=== PATIENT | male | born 1940 | race Caucasian/White ===

== ENCOUNTER 2017-01-02 22:45 | Emergency (ER) | payer OTHER ==
[~2017-01-02] VITALS: Ht 175.3 cm; Wt 84.0 kg
[2017-01-02 22:47] VITALS: BP 197/76; PULSE 95; RESP 18; TEMP 97.9; O2SAT 96
[2017-01-02] MEDS ORDERED: SODIUM CHLORIDE 0.9% FLUSH 10 ML FLUSH IVF PRN (23:30)
--- NOTE | 2017-01-02 23:46 | PD ---
HPI Chief Complaint: Anxiety Time Seen by Provider: 23:01 Travel History International Travel<30 days: No Contact w/Intl Traveler<30days: No Traveled to known affect area: No History of Present Illness HPI This is a 76-year-old male with very vague complaints of feeling anxious. He clarifies this state that she feels very nervous. Patient relates a history of not being able to sleep tonight. He states he took an [id number] sleeping pill as well as had 2 beers earlier today. He drove himself here sometime after that. Patient then relates a history of feeling anxious about taking care of his neighbor's dog. Apparently the dog needed shots and he was unsure if he was given a be able to do that. He states he been feeling anxious on and off for the past 2 weeks and before that has not had any history of anxiety. His friend gave him an Abilify tablet to take which she took tonight. This did not help. He denies any chest pain shortness of breath. Patient also has a very vague complaint of having blood in his belly in the past secondary to alcohol consumption. He states he thinks he felt like this was coming on again. He denies having any blood in his stool or emesis. Denies any fever denies any abdominal pain. PFSH Past Medical History Hx Anticoagulant Therapy: Yes (ASA) Cardiovascular Problems: Yes (HTN) COPD: Yes Diminished Hearing: No Hypertension: Yes Tetanus Vaccination: Unknown Influenza Vaccination: Yes Past Surgical History Surgical History: No Previous Surgery Social History Alcohol Use: Yes (beer/vodka daily) Tobacco Use: Yes Substance Use: No Allergies-Medications (Allergen,Severity, Reaction): Coded Allergies: No Known Allergies (Unverified , 01/02/17) Reported Meds & Prescriptions Reported Meds & Active Scripts Active Reported Duoneb (Ipratropium-Albuterol Neb) 0.5-2.5 Mg/3 Ml Neb 1 Nebule INH Q8HR NEB Verapamil (Verapamil HCl) 120 Mg Tab 120 Mg PO DAILY Pravastatin 20 Mg Tab 20 Mg PO DAILY Niacin 500 Mg Tab 500 Mg PO DAILY Loratadine 10 Mg Tab 10 Mg PO DAILY Lisinopril 5 Mg Tab 5 Mg PO DAILY Potassium Chloride ER (Potassium Chloride) 10 Meq Tab 10 Meq PO DAILY Calcium Ascorbate 500 Mg Tab 500 Mg PO DAILY Aspirin Low Dose (Aspirin) 81 Mg Chew 81 Mg CHEW DAILY Review of Systems Except as stated in HPI: all other systems reviewed are Neg Physical Exam Narrative GENERAL: Well-developed well-nourished no apparent distress. SKIN: Focused skin assessment warm/dry. HEAD: Atraumatic. Normocephalic. EYES: Pupils equal and round. No scleral icterus. No injection or drainage. ENT: No nasal bleeding or discharge. Mucous membranes pink and moist. NECK: Trachea midline. No JVD. CARDIOVASCULAR: Regular rate and rhythm. No murmur appreciated. RESPIRATORY: No accessory muscle use. Clear to auscultation. Breath sounds equal bilaterally. GASTROINTESTINAL: Abdomen soft, non-tender, nondistended. Hepatic and splenic margins not palpable. MUSCULOSKELETAL: No obvious deformities. No clubbing. No cyanosis. No edema. NEUROLOGICAL: Awake and alert. No obvious cranial nerve deficits. Motor grossly within normal limits. Normal speech. PSYCHIATRIC: Reluctant to make eye contact, alert and awake and oriented. Denies any suicidal or homicidal ideation. Data Data Last Documented VS Vital Signs Date Time Temp Pulse Resp B/P Pulse Ox O2 Delivery O2 Flow Rate FiO2 01/02/17 22:47 97.9 95 18 197/76 96 Room Air Orders Electrocardiogram (01/02/17 23:17) Ckmb (Isoenzyme) Profile (01/02/17 23:17) Complete Blood Count With Diff (01/02/17 23:17) Comprehensive Metabolic Panel (01/02/17 23:17) Magnesium (Mg) (01/02/17 23:17) Prothrombin Time / Inr (Pt) (01/02/17 23:17) Act Partial Throm Time (Ptt) (01/02/17 23:17) Troponin I (01/02/17 23:17) Chest, Single Ap (01/02/17 23:17) Ecg Monitoring (01/02/17 23:17) Bilateral Bp Monitoring (01/02/17 23:17) Iv Access Insert/Monitor (01/02/17 23:17) Oximetry (01/02/17 23:17) Oxygen Administration (01/02/17 23:17) Sodium Chloride 0.9% Flush (Ns Flush) (01/02/17 23:30) Labs Laboratory Tests Test 01/02/17 23:50 White Blood Count 8.7 TH/MM3 Red Blood Count 3.99 MIL/MM3 Hemoglobin 12.4 GM/DL Hematocrit 36.2 % Mean Corpuscular Volume 90.7 FL Mean Corpuscular Hemoglobin 31.1 PG Mean Corpuscular Hemoglobin 34.3 % Concent Red Cell Distribution Width 13.3 % Platelet Count 252 TH/MM3 Mean Platelet Volume 9.3 FL Neutrophils (%) (Auto) 77.3 % Lymphocytes (%) (Auto) 14.3 % Monocytes (%) (Auto) 7.4 % Eosinophils (%) (Auto) 0.7 % Basophils (%) (Auto) 0.3 % Neutrophils # (Auto) 6.7 TH/MM3 Lymphocytes # (Auto) 1.2 TH/MM3 Monocytes # (Auto) 0.6 TH/MM3 Eosinophils # (Auto) 0.1 TH/MM3 Basophils # (Auto) 0.0 TH/MM3 CBC Comment DIFF FINAL Differential Comment MDM Medical Decision Making Medical Screen Exam Complete: Yes Emergency Medical Condition: Yes Interpretation(s) EKG shows normal sinus rhythm with a rate of 62. LA interval is at upper limits of normal at 200. There is right bundle torsten block. No concerning ST T changes. This an abnormal EKG. Nonischemic. No previous for comparison. Differential Diagnosis Anemia, anxiety, alcohol abuse, fatigue, ACS unlikely, MA likely. Narrative Course Patient was roomed in the emergency department, only notable physical exam findings at the patient is reluctant to make eye contact with me. Shortly after arrival into the emergency department his nervousness and has been resolved without intervention by me. Given his age and think a medical workup for no history of anxiety symptoms should be initiated. CBC is within normal limits. Patient will be discussed with Dr. Burger to follow-up chemistry and disposition properly. Mark Adkins MD Jan 02, 2017 23:46
--- NOTE | 2017-01-02 23:54 | RADRPT ---
EXAM DATE/TIME: 01/02/2017 23:17 [facility] COMPARISON: No previous studies available for comparison. INDICATIONS : Shortness of breath. MEDICAL HISTORY : None. SURGICAL HISTORY : None. ENCOUNTER: Initial ACUITY: 1 day PAIN SCORE: 0/10 LOCATION: Bilateral chest FINDINGS: The cardiac silhouette is enlarged in transverse diameter. The lungs are free of acute parenchymal op acity. No effusions are identified. There is prominence of the aortic knob is with calcification ralph acteristic of atherosclerotic vascular disease. CONCLUSION: 1. Cardiomegaly. No acute pulmonary disease. Dom Soriano MD on January 02, 2017 at 23:53 Board Certified Radiologist. This report was verified electronically.
[2017-01-02] MEDS ORDERED: IPRASOL INH (23:55)
[2017-01-02] MEDS ORDERED: LISI-519 PO (23:55)
[2017-01-02] MEDS ORDERED: CALC500T37 PO (23:55)
[2017-01-02] MEDS ORDERED: ASPI81CH37 CHEW (23:55)
[2017-01-02] MEDS ORDERED: POTA10TA2 PO (23:55)
[2017-01-02] MEDS ORDERED: NIAC500T5 PO (23:55)
[2017-01-02] MEDS ORDERED: PRAV20TA2 PO (23:55)
[2017-01-02] MEDS ORDERED: VERA120T3 PO (23:55)
[2017-01-02] MEDS ORDERED: LORA10TA PO (23:55)
[2017-01-03 00:17] LABS: AUTOMATED NEUTROPHIL # 6.7 TH/MM3 (1.8-7.7); BASOPHIL % 0.3 % (0.0-2.0); EOSINOPHIL # 0.1 TH/MM3 (0-0.4); EOSINOPHIL % 0.7 % (0.0-4.0); HEMATOCRIT 36.2 % (39.0-51.0); HEMO FLAGS DIFF FINAL; LYMPH % 14.3 % (9.0-44.0); LYMPHOCYTE # 1.2 TH/MM3 (1.0-4.8); MEAN CELL VOLUME 90.7 FL (80.0-100.0); MEAN CORPUSCULAR HEMOGLOBIN 31.1 PG (27.0-34.0); MEAN CORPUSCULAR HGB CONC 34.3 % (32.0-36.0); MONO % 7.4 % (0.0-8.0); NEUT % 77.3 % (16.0-70.0); PLATELET COUNT 252 TH/MM3 (150-450); RED BLOOD COUNT 3.99 MIL/MM3 (4.50-5.90); RED CELL DISTRIBUTION WIDTH 13.3 % (11.6-17.2); WHITE BLOOD COUNT 8.7 TH/MM3 (4.0-11.0)
[2017-01-03 00:43] LABS: ALT (GPT) 25 U/L (12-78); ANION GAP 8 MEQ/L (5-15); AST (GOT) 30 U/L (15-37); BICARBONATE 26.2 MEQ/L (21.0-32.0); BLOOD UREA NITROGEN 5 MG/DL (7-18); CHLORIDE 92 MEQ/L (98-107); GLOMERULAR FILTRATION RATE 92 ML/MIN (>89); MAGNESIUM 1.7 MG/DL (1.5-2.5); SODIUM (NA) 126 MEQ/L (136-145)
[2017-01-03 00:50] LABS: ALKALINE PHOSPHATASE 70 U/L (45-117); APTT (PATIENT) 22.3 SEC (24.3-30.1); PROTHROMBIN TIME - PATIENT 10.6 SEC (9.8-11.6); TOTAL BILIRUBIN ADULT 0.8 MG/DL (0.2-1.0)
[2017-01-03 00:51] LABS: CREATINE KINASE 97 U/L (39-308)
--- NOTE | 2017-01-03 01:32 | PD ---
Physical Exam Date Seen by Provider: Jan 03, 2017 Narrative Patient was signed out to me at [address] Adkins pending lab evaluation. The patient presented complaining with nervousness. Data Data Last Documented VS Vital Signs Date Time Temp Pulse Resp B/P Pulse Ox O2 Delivery O2 Flow Rate FiO2 01/02/17 23:30 96 Room Air 01/02/17 22:47 97.9 95 18 197/76 Orders Electrocardiogram (01/02/17 23:17) Ckmb (Isoenzyme) Profile (01/02/17 23:17) Complete Blood Count With Diff (01/02/17 23:17) Comprehensive Metabolic Panel (01/02/17 23:17) Magnesium (Mg) (01/02/17 23:17) Prothrombin Time / Inr (Pt) (01/02/17:17) Act Partial Throm Time (Ptt) (01/02/17 23:17) Troponin I (01/02/17 23:17) Chest, Single Ap (01/02/17 23:17) Ecg Monitoring (01/02/17 23:17) Bilateral Bp Monitoring (01/02/17 23:17) Iv Access Insert/Monitor (01/02/17 23:17) Oximetry (01/02/17 23:17) Oxygen Administration (01/02/17 23:17) Sodium Chloride 0.9% Flush (Ns Flush) (01/02/17 23:30) Psych Screen (01/03/17 01:28) Labs Laboratory Tests Test 01/02/17 23:50 White Blood Count 8.7 TH/MM3 Red Blood Count 3.99 MIL/MM3 Hemoglobin 12.4 GM/DL Hematocrit 36.2 % Mean Corpuscular Volume 90.7 FL Mean Corpuscular Hemoglobin 31.1 PG Mean Corpuscular Hemoglobin 34.3 % Concent Red Cell Distribution Width 13.3 % Platelet Count 252 TH/MM3 Mean Platelet Volume 9.3 FL Neutrophils (%) (Auto) 77.3 % Lymphocytes (%) (Auto) 14.3 % Monocytes (%) (Auto) 7.4 % Eosinophils (%) (Auto) 0.7 % Basophils (%) (Auto) 0.3 % Neutrophils # (Auto) 6.7 TH/MM3 Lymphocytes # (Auto) 1.2 TH/MM3 Monocytes # (Auto) 0.6 TH/MM3 Eosinophils # (Auto) 0.1 TH/MM3 Basophils # (Auto) 0.0 TH/MM3 CBC Comment DIFF FINAL Differential Comment Prothrombin Time 10.6 SEC Prothromb Time International 1.0 RATIO Ratio Activated Partial 22.3 SEC Thromboplast Time Sodium Level 126 MEQ/L Potassium Level 4.0 MEQ/L Chloride Level 92 MEQ/L Carbon Dioxide Level 26.2 MEQ/L Anion Gap 8 MEQ/L Blood Urea Nitrogen 5 MG/DL Creatinine 0.82 MG/DL Estimat Glomerular Filtration 92 ML/MIN Rate Random Glucose 115 MG/DL Calcium Level 8.5 MG/DL Magnesium Level 1.7 MG/DL Total Bilirubin 0.8 MG/DL Aspartate Amino Transf 30 U/L (AST/SGOT) Alanine Aminotransferase 25 U/L (ALT/SGPT) Alkaline Phosphatase 70 U/L Total Creatine Kinase 97 U/L Troponin I LESS THAN 0.02 NG/ML Total Protein 6.9 GM/DL Albumin 3.6 GM/DL MDM Supervised Visit with ADRIANA: No Narrative Course This patient is very despondent. He makes very poor eye contact. He became tearful during the interview. I offered psych evaluation which he accepted. The patient does admit to alcohol use. This probably explains his abnormal chemistries. CBC & BMP Diagram 01/02/17 23:50 Last Impressions Chest X-Ray 01/02/17 0487 Signed Impressions: Service Date/Time: Monday, January 02, 2017 23:17 - CONCLUSION: 1. Cardiomegaly. No acute pulmonary disease. Dom Soriano MD Cardiac enzymes negative. LFTs are normal. Diagnosis Primary Impression: Depression Qualified Code: F32.9 - Depression, unspecified depression type Condition: Zoë Barry MD Jan 03, 2017 01:32
[2017-01-03 02:12] VITALS: BP 139/77; PULSE 73; RESP 16; O2SAT 96
[2017-01-03] MEDS ORDERED: LORazepam 2 MG TAB PO ONE (02:45)
[2017-01-03 08:15] VITALS: BP_SYST 126; BP_SYST 128; BP_SYST 130; BP_DIAS 77; BP_DIAS 81; PULSE 78; RESP 17; TEMP 97.8; O2SAT 99
--- NOTE | 2017-01-03 14:06 | EKG ---
Date Performed: 01/02/2017 Time Performed: 23:39:49 PTAGE: 76 years EKG: First degree AV block with WA interval of 0.22 Right bundle branch block Left axis deviatio n ABNORMAL ECG NO PREVIOUS TRACING DOCTOR: Raza Metcalf Interpretating Date/Time 01/03/2017 14:04:48
== END 2017-01-03 08:15 | disposition home or self-care (01) ==
LOC: NEPD 22:45
DX: F32.9 Major depressive disorder, single episode, unspecified (principal); I10 Essential (primary) hypertension; R94.31 Abnormal electrocardiogram [ECG] [EKG]; Z72.0 Tobacco use; Z79.01 Long term (current) use of anticoagulants
CPT/HCPCS: 71010; 80053; 82550; 83735; 84484; 85025; 85610; 85730; 93005

== ENCOUNTER 2017-02-07 20:19 | Inpatient (IN) | payer OTHER, MEDICARE ==
[~2017-02-07] VITALS: Ht 177.8 cm; Wt 78.5 kg
[~2017-02-07 20:19] MED LIST: ASPI81CH37 CHEW; CALC500T37 PO; IPRASOL INH; LISI-519 PO; LORA10TA PO; NIAC500T5 PO; POTA10TA2 PO; PRAV20TA2 PO; VERA120T3 PO
[2017-02-07 20:21] VITALS: BP 225/107; PULSE 92; RESP 18; TEMP 97.7; O2SAT 98
[2017-02-07] MEDS ORDERED: SODIUM CHLORIDE 0.9% FLUSH 5 ML FLUSH IV FLUSH PRN (20:45)
[2017-02-07 21:02] VITALS: BP 177/100; PULSE 79; RESP 18; O2SAT 97; O2SAT 98
--- NOTE | 2017-02-07 21:02 | PD ---
HPI Chief Complaint: Altered Mental Status Time Seen by Provider: 20:40 Travel History International Travel<30 days: No Contact w/Intl Traveler<30days: No Traveled to known affect area: No History of Present Illness HPI 76-year-old male arrives complaining of feeling unsafe at home. He states he lives in a mobile home with for security. He believes people break in at night and drug him with sedatives. He continues to explain several months of hallucinations. He has no thoughts of harming himself or others. He reports that quitting drinking alcohol about one month prior. He reports taking Ex-Lax today for constipation, a chronic ailment for him, though no more acute than normal today. PFSH Past Medical History Hx Anticoagulant Therapy: Yes (ASA) Cardiovascular Problems: Yes (HTN) COPD: Yes Diminished Hearing: No Hypertension: Yes Social History Alcohol Use: Yes (beer/vodka daily) Tobacco Use: Yes Substance Use: Yes (CHRONIC ALCOHOL ABUSE) Allergies-Medications (Allergen,Severity, Reaction): Coded Allergies: No Known Allergies (Unverified , 02/07/17) Reported Meds & Prescriptions Reported Meds & Active Scripts Active Reported Omeprazole 20 Mg Tab 20 Mg PO DAILY Duoneb (Ipratropium-Albuterol Neb) 0.5-2.5 Mg/3 Ml Neb 1 Nebule INH Q8HR NEB PRN Verapamil (Verapamil HCl) 120 Mg Tab 120 Mg PO DAILY Pravastatin 20 Mg Tab 20 Mg PO HS Niacin 500 Mg Tab 500 Mg PO HS Loratadine 10 Mg Tab 10 Mg PO DAILY PRN Lisinopril 5 Mg Tab 5 Mg PO DAILY Potassium Chloride ER (Potassium Chloride) 10 Meq Tab 10 Meq PO DAILY Calcium Ascorbate 500 Mg Tab 500 Mg PO DAILY Aspirin Low Dose (Aspirin) 81 Mg Chew 81 Mg CHEW EVERY OTHER DAY Review of Systems Except as stated in HPI: all other systems reviewed are Neg Physical Exam Narrative GENERAL: 76 yo M, WNWD, cooperative. SKIN: Warm and dry. HEAD: Atraumatic. Normocephalic. EYES: Pupils equal and round. No scleral icterus. No injection or drainage. ENT: No nasal bleeding or discharge. Mucous membranes pink and moist. NECK: Trachea midline. No JVD. CARDIOVASCULAR: Regular rate and rhythm. RESPIRATORY: No accessory muscle use. Clear to auscultation. Breath sounds equal bilaterally. GASTROINTESTINAL: Abdomen soft, non-tender, nondistended. Hepatic and splenic margins not palpable. MUSCULOSKELETAL: Extremities without clubbing, cyanosis, or edema. No obvious deformities. NEUROLOGICAL: Awake and alert. No obvious cranial nerve deficits. Motor grossly within normal limits. Five out of 5 muscle strength in the arms and legs. Normal speech. PSYCHIATRIC: No apparent response to internal stimulus. Denies suicidal or homicidal ideation. Data Data Last Documented VS Vital Signs Date Time Temp Pulse Resp B/P Pulse Ox O2 Delivery O2 Flow Rate FiO2 02/07/17 21:02 79 18 177/100 97 Room Air 02/07/17 20:21 97.7 Vital signs reviewed Orders Ammonia (02/07/17 20:40) Complete Blood Count With Diff (02/07/17 20:40) Comprehensive Metabolic Panel (02/07/17 20:40) Thyroid Stimulating Hormone (02/07/17 20:40) Urinalysis - C+S If Indicated (02/07/17 20:40) Ct Brain W/O Iv Contrast(Rout) (02/07/17 20:40) Blood Glucose (02/07/17 20:40) Ecg Monitoring (02/07/17 20:40) Iv Access Insert/Monitor (02/07/17 20:40) Oximetry (02/07/17 20:40) Sodium Chloride 0.9% Flush (Ns Flush) (02/07/17 20:45) Psych Screen (02/07/17 20:40) Drug Screen, Random Urine (02/07/17 20:40) Alcohol (Ethanol) (02/07/17 20:40) Salicylates (Aspirin) (02/07/17 20:40) Tylenol (Acetaminophen) (02/07/17 20:40) Lorazepam Inj (Ativan Inj) (02/07/17 23:15) Lorazepam Inj (Ativan Inj) (02/07/17 23:06) Labs Laboratory Tests Test 02/07/17 02/07/17 20:48 21:48 White Blood Count 7.1 TH/MM3 Red Blood Count 4.25 MIL/MM3 Hemoglobin 12.9 GM/DL Hematocrit 38.0 % Mean Corpuscular Volume 89.3 FL Mean Corpuscular Hemoglobin 30.4 PG Mean Corpuscular Hemoglobin 34.0 % Concent Red Cell Distribution Width 13.7 % Platelet Count 258 TH/MM3 Mean Platelet Volume 9.3 FL Neutrophils (%) (Auto) 68.7 % Lymphocytes (%) (Auto) 17.6 % Monocytes (%) (Auto) 11.5 % Eosinophils (%) (Auto) 1.9 % Basophils (%) (Auto) 0.3 % Neutrophils # (Auto) 4.8 TH/MM3 Lymphocytes # (Auto) 1.2 TH/MM3 Monocytes # (Auto) 0.8 TH/MM3 Eosinophils # (Auto) 0.1 TH/MM3 Basophils # (Auto) 0.0 TH/MM3 CBC Comment DIFF FINAL Differential Comment Sodium Level 133 MEQ/L Potassium Level 3.4 MEQ/L Chloride Level 96 MEQ/L Carbon Dioxide Level 27.3 MEQ/L Anion Gap 10 MEQ/L Blood Urea Nitrogen 10 MG/DL Creatinine 0.76 MG/DL Estimat Glomerular Filtration 100 ML/MIN Rate Random Glucose 98 MG/DL Calcium Level 8.8 MG/DL Total Bilirubin 0.6 MG/DL Aspartate Amino Transf 25 U/L (AST/SGOT) Alanine Aminotransferase 24 U/L (ALT/SGPT) Alkaline Phosphatase 93 U/L Ammonia 16 MCMOL/L Total Protein 7.0 GM/DL Albumin 3.3 GM/DL Thyroid Stimulating Hormone 1.700 uIU/ML 3rd Gen Salicylates Level LESS THAN 1.7 MG/DL Acetaminophen Level LESS THAN 2.0 MCG/ML Ethyl Alcohol Level LESS THAN 3 MG/DL Urine Color YELLOW Urine Turbidity HAZY Urine pH 7.0 Urine Specific [place] 1.018 Urine Protein TRACE mg/dL Urine Glucose (UA) NEG mg/dL Urine Ketones TRACE mg/dL Urine Occult Blood TRACE Urine Nitrite NEG Urine Bilirubin NEG Urine Urobilinogen 2.0 MG/DL Urine Leukocyte Esterase NEG Urine RBC 8 /hpf Urine WBC 1 /hpf Urine Squamous Epithelial <1 /hpf Cells Urine Mucus FEW /lpf Microscopic Urinalysis Comment CATH-CULT NOT IND Urine Opiates Screen NEG Urine Barbiturates Screen NEG Urine Amphetamines Screen NEG Urine Benzodiazepines Screen NEG Urine Cocaine Screen NEG Urine Cannabinoids Screen NEG MDM Medical Decision Making Medical Screen Exam Complete: Yes Emergency Medical Condition: Yes Medical Record Reviewed: Yes Differential Diagnosis Altered mental status/psychosis due to infection/environmental exposure/ metabolic abnormality, polypharmacy, alcohol abuse/intoxication, illicit or prescribed drug abuse, malingering/secondary gain, non-organic psychiatric disease Narrative Course CBC & BMP Diagram 02/07/17 20:48 Ammonia 16 TSH 1.7 ETOH < 3 Urine Drug zhou-negative APAP < 2.0 Salicylates < 1.7 UA: No UTI, trace RBCs Last [address] 02/07/172039 Signed Impressions: Service Date/Time: Tuesday, February 07, 2017 22:10 - CONCLUSION: Normal examination. Javon Ch MD Pt became agitated. He said he was going to leave the ER. He began swearing. He stated that he needed a phone to call the [place]. He had no number to call specifically. [facility] 11 PM. Pt stated he knows people who could get him home from the ER and that his presence in the ER was a threat to national security. He also stated he could order a battalion to take him home from the ER. He was redirectable. Ultimately he received 1 mg IV Ativan. A [facility] Act was filled out 2/2 risk to self/psychosis. 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
[2017-02-07] MEDS ORDERED: OMEP20TA PO (21:06)
[2017-02-07 21:09] LABS: AUTOMATED NEUTROPHIL # 4.8 TH/MM3 (1.8-7.7); BASOPHIL % 0.3 % (0.0-2.0); EOSINOPHIL # 0.1 TH/MM3 (0-0.4); EOSINOPHIL % 1.9 % (0.0-4.0); HEMO FLAGS DIFF FINAL; LYMPH % 17.6 % (9.0-44.0); LYMPHOCYTE # 1.2 TH/MM3 (1.0-4.8); MEAN CELL VOLUME 89.3 FL (80.0-100.0); MEAN CORPUSCULAR HEMOGLOBIN 30.4 PG (27.0-34.0); MONO % 11.5 % (0.0-8.0); NEUT % 68.7 % (16.0-70.0); PLATELET COUNT 258 TH/MM3 (150-450); RED BLOOD COUNT 4.25 MIL/MM3 (4.50-5.90); RED CELL DISTRIBUTION WIDTH 13.7 % (11.6-17.2); WHITE BLOOD COUNT 7.1 TH/MM3 (4.0-11.0)
[2017-02-07 21:35] LABS: ANION GAP 10 MEQ/L (5-15); AST (GOT) 25 U/L (15-37); BICARBONATE 27.3 MEQ/L (21.0-32.0); BLOOD UREA NITROGEN 10 MG/DL (7-18); CHLORIDE 96 MEQ/L (98-107); GLOMERULAR FILTRATION RATE 100 ML/MIN (>89); POTASSIUM 3.4 MEQ/L (3.5-5.1); SODIUM (NA) 133 MEQ/L (136-145)
[2017-02-07 21:46] LABS: ACETAMINOPHEN LESS THAN 2.0 MCG/ML (10.0-30.0); ALKALINE PHOSPHATASE 93 U/L (45-117); ALT (GPT) 24 U/L (12-78); TOTAL BILIRUBIN ADULT 0.6 MG/DL (0.2-1.0)
[2017-02-07 22:25] LABS: BLOOD, URINE TRACE (NEG); COMMENT (UR) CATH-CULT NOT IND; CULTURE IF INDICATED CATH CULTURE NOT IND; GLUCOSE,URINE NEG (NEG); KETONE, URINE TRACE mg/dL (NEG); MUCUS URINE FEW /lpf (OCC); NITRITE,URINE NEG (NEG); SQUAMOUS EPITHELIAL CELL URINE <1 /hpf (0-5); URINE COLOR YELLOW (YELLW/STRAW)
[2017-02-07 22:33] LABS: AMPHETAMINE, URINE NEG (NEG); BARBITURATES, URINE NEG (NEG); COCAINE, URINE NEG (NEG)
--- NOTE | 2017-02-07 23:02 | RADRPT ---
EXAM DATE/TIME: 02/07/2017 22:10 [facility] COMPARISON: No previous studies available for comparison. INDICATIONS : Altered mental status. RADIATION DOSE: 42.52 CTDIvol (mGy) MEDICAL HISTORY : Hypertension. Chronic obstructive pulmonary disease. SURGICAL HISTORY : None. ENCOUNTER: Initial ACUITY: 1 day PAIN SCALE: 0/10 LOCATION: cranial TECHNIQUE: Multiple contiguous axial images were obtained of the head. Using automated exposure control and adj ustment of the mA and/or kV according to patient size, radiation dose was kept as low as reasonably a chievable to obtain optimal diagnostic quality images. FINDINGS: CEREBRUM: The ventricles are normal for age. No evidence of midline shift, mass lesion, hemorrhage or acute in farction. No extra-axial fluid collections are seen. POSTERIOR FOSSA: The cerebellum and brainstem are intact. The 4th ventricle is midline. The cerebellopontine angle i s unremarkable. EXTRACRANIAL: The visualized portion of the orbits is intact. SKULL: The calvaria is intact. No evidence of skull fracture. CONCLUSION: Normal examination. Javon Ch MD on February 07, 2017 at 23:00 Board Certified Radiologist. This report was verified electronically.
[2017-02-07] MEDS ORDERED: LORazepam 2 MG/ML VIAL ONE (23:06)
[2017-02-07] MEDS ORDERED: LORazepam 2 MG/ML VIAL IV PUSH ONE (23:15)
[2017-02-08 02:09] VITALS: BP 178/99; PULSE 87; RESP 16; O2SAT 100
[2017-02-08 02:12] VITALS: BP 124/67; PULSE 86; O2SAT 100
[2017-02-08 07:05] VITALS: BP 127/72; PULSE 73; RESP 16; TEMP 98.6; O2SAT 100
[2017-02-08] MEDS ORDERED: LORazepam 0.5 MG TAB PO PRN ×2 (08:00→13:30)
[2017-02-08] MEDS ORDERED: OLANZapine IM 10 MG VIAL IM PRN (08:00)
[2017-02-08] MEDS ORDERED: ALUMINUM/MAGNESIUM/SIMETH 30 ML CUP PO PRN (08:00)
[2017-02-08] MEDS ORDERED: ACETAMINOPHEN 325 MG TAB PO PRN (08:00)
[2017-02-08] MEDS ORDERED: LORazepam 2 MG/ML VIAL IM PRN ×2 (08:00→09:00)
[2017-02-08 08:58] VITALS: BP 168/79; PULSE 84; RESP 17; TEMP 96.9; O2SAT 95
[2017-02-08] MEDS: risperiDONE 0.5 MG TAB PO SCH ×2 (09:00→21:18)
[2017-02-08] MEDS: NICOTINE 21 MG/24 HR PATCH T-DERMAL SCH (09:00)
[2017-02-08] MEDS ORDERED: LORazepam 1 MG TAB PO PRN ×2 (09:00→13:15)
[2017-02-08] MEDS: REMOVE OLD PATCH T-DERMAL SCH (09:00)
[2017-02-08] MEDS ORDERED: RESP: ALBUTEROL 2.5 MG/IPRATROPIUM 0.5 MG NEB (PRN) INH (10:45)
[2017-02-08] MEDS: VERAPAMIL HCL 120 MG TAB PO SCH (10:45)
[2017-02-08] MEDS ORDERED: LORATADINE 10 MG TAB PO PRN (10:45)
--- NOTE | 2017-02-08 10:52 | PD.CONS ---
HPI Service [facility] Hospitalists Consult Requested By Psychiatric service Reason for Consult Medical management Primary Care Physician Jacque Yousif MD Diagnoses: History of Present Illness Written by Jami Bond PA-C acting as scribe for Dr. Mcgowan on 02/08/17 at 10:40 This is a 76-year-old male with a previous history of alcohol abuse who has been sober for the past 30 days who was admitted to the psychiatric unit under Haley act for delusional thoughts. Patient also has past medical history significant for hypertension COPD and chronic constipation. Hospital services have been requested for medical management of these. Patient seen and examined today. At present patient has no acute medical complaints. He denies any fever , chills, nausea, vomiting, dizziness, headaches, shortness of breath, chest pain or abdominal pain. States his constipation is well managed presently. Patient reports that he's had hallucinations in the past after he quit drinking that are similar to what he has been experiencing recently. When asked specifically about his hallucinations patient is vague with his responses and will only report that he's been seeing "goofy things". He denies any shakiness or tremors. He appears to have some confusion when answering questions but is able to be redirected easily. Review of Systems Except as stated in HPI: all other systems reviewed are Neg Past Family Social History Allergies: Coded Allergies: No Known Allergies (Unverified , 02/07/17) Past Medical History HTN COPD Chronic constipation History of GI bleed secondary to alcohol abuse Past Surgical History Patient reports his only surgical procedure has been EGD and colonoscopy in 1991 due to workup for GI bleed Reported Medications Omeprazole 20 Mg Tab 20 Mg PO DAILY Duoneb (Ipratropium-Albuterol Neb) 0.5-2.5 Mg/3 Ml Neb 1 Nebule INH Q8HR NEB PRN Verapamil (Verapamil HCl) 120 Mg Tab 120 Mg PO DAILY Pravastatin 20 Mg Tab 20 Mg PO HS Niacin 500 Mg Tab 500 Mg PO HS Loratadine 10 Mg Tab 10 Mg PO DAILY PRN Lisinopril 5 Mg Tab 5 Mg PO DAILY Potassium Chloride ER (Potassium Chloride) 10 Meq Tab 10 Meq PO DAILY Calcium Ascorbate 500 Mg Tab 500 Mg PO DAILY Aspirin Low Dose (Aspirin) 81 Mg Chew 81 Mg CHEW EVERY OTHER DAY Active Ordered Medications Current Medications Medications (Trade) Dose Ordered Sig/Helena Route Start Time Stop Time Status Last Admin (NS Flush) 2 ml UNSCH PRN IV FLUSH 02/07/17 20:45 (Ativan Inj) 1 mg Q6H PRN IM 02/08/17 09:00 (Ativan Inj) 0.5 mg Q12H PRN IM 02/08/17 08:00 (Tylenol) 650 mg Q4H PRN PO 02/08/17 08:00 (Milk Of Magnesia Liq) 30 ml DAILY PRN PO 02/08/17 08:00 (Mag-Al Plus Susp Liq) 30 ml Q6H PRN PO 02/08/17 08:00 (Habitrol 21 Mg Patch.24 Hr) 1 patch DAILY T-DERMAL 02/08/17 09:00 (risperDAL) 0.5 mg BID PO 02/08/17 09:00 (ZyPREXA INJ) 5 mg Q12H PRN IM 02/08/17 08:00 Miscellaneous Information 1 DAILY T-DERMAL 02/08/17 09:00 (Vitamin B1) 100 mg DAILY PO 02/08/17 11:00 (Folate) 1 mg DAILY PO 02/08/17 11:00 Family History Grandfather, TB Social History Patient denies any tobacco use. Patient reports history of heavy alcohol consumption that appears to have started in 1991 following the of his son. His last drink was 30 days ago due to "finding God". No illicit drug use. Physical Exam Vital Signs Vital Signs Date Time Temp Pulse Resp B/P Pulse Ox O2 Delivery O2 Flow Rate FiO2 02/08/17 08:58 96.9 84 17 168/79 95 02/08/17 07:05 98.6 73 16 127/72 100 Room Air 02/08/17 02:12 86 124/67 100 02/07/17 21:02 79 18 177/100 97 Room Air 02/07/17 21:02 98 Room Air 02/07/17 20:38 84 02/07/17 20:21 97.7 92 18 225/107 98 Room Air Physical Exam GENERAL: This is a well-nourished, well-developed patient, in no apparent distress. SKIN: No rashes, ecchymoses or lesions. Cool and dry. HEAD: Atraumatic. Normocephalic. No temporal or scalp tenderness. EYES: Pupils equal round and reactive. Extraocular motions intact. No scleral icterus. No injection or drainage. ENT: Nose without bleeding, purulent drainage or septal hematoma. Throat without erythema, tonsillar hypertrophy or exudate. Uvula midline. Airway patent. NECK: Trachea midline. No lymphadenopathy. Supple, nontender, no meningeal signs. CARDIOVASCULAR: Regular rate and rhythm. 3/6 systolic murmur appreciated. RESPIRATORY: Clear to auscultation. Breath sounds equal bilaterally. No wheezes , rales, or rhonchi. GASTROINTESTINAL: Abdomen soft, non-tender, nondistended. No hepato-splenomegaly , or palpable masses. No guarding. MUSCULOSKELETAL: Extremities without clubbing, cyanosis, or edema. No joint tenderness, effusion, or edema noted. No calf tenderness. NEUROLOGICAL: Awake and alert. Able to move all extremities. No focal neurologic findings appreciated. Normal speech. DTRs intact and 3+ bilateral upper and lower extremities. Laboratory Laboratory Tests Test 02/07/17 02/07/17 20:48 21:48 White Blood Count 7.1 Red Blood Count 4.25 Hemoglobin 12.9 Hematocrit 38.0 Mean Corpuscular Volume 89.3 Mean Corpuscular Hemoglobin 30.4 Mean Corpuscular Hemoglobin 34.0 Concent Red Cell Distribution Width 13.7 Platelet Count 258 Mean Platelet Volume 9.3 Neutrophils (%) (Auto) 68.7 Lymphocytes (%) (Auto) 17.6 Monocytes (%) (Auto) 11.5 Eosinophils (%) (Auto) 1.9 Basophils (%) (Auto) 0.3 Neutrophils # (Auto) 4.8 Lymphocytes # (Auto) 1.2 Monocytes # (Auto) 0.8 Eosinophils # (Auto) 0.1 Basophils # (Auto) 0.0 CBC Comment DIFF FINAL Differential Comment Sodium Level 133 Potassium Level 3.4 Chloride Level 96 Carbon Dioxide Level 27.3 Anion Gap 10 Blood Urea Nitrogen 10 Creatinine 0.76 Estimat Glomerular Filtration 100 Rate Random Glucose 98 Calcium Level 8.8 Total Bilirubin 0.6 Aspartate Amino Transf 25 (AST/SGOT) Alanine Aminotransferase 24 (ALT/SGPT) Alkaline Phosphatase 93 Ammonia 16 Total Protein 7.0 Albumin 3.3 Thyroid Stimulating Hormone 1.700 3rd Gen Salicylates Level LESS THAN 1.7 Acetaminophen Level LESS THAN 2.0 Ethyl Alcohol Level LESS THAN 3 Urine Color YELLOW Urine Turbidity HAZY Urine pH 7.0 Urine Specific [place] 1.018 Urine Protein TRACE Urine Glucose (UA) NEG Urine Ketones TRACE Urine Occult Blood TRACE Urine Nitrite NEG Urine Bilirubin NEG Urine Urobilinogen 2.0 Urine Leukocyte Esterase NEG Urine RBC 8 Urine WBC 1 Urine Squamous Epithelial <1 Cells Urine Mucus FEW Microscopic Urinalysis Comment CATH-CULT NOT IND Urine Opiates Screen NEG Urine Barbiturates Screen NEG Urine Amphetamines Screen NEG Urine Benzodiazepines Screen NEG Urine Cocaine Screen NEG Urine Cannabinoids Screen NEG Result Diagram: 02/07/[id number] Imaging Last Impressions Head CT 02/07/172039 Signed Impressions: Service Date/Time: Thursday, February 07, 2017 22:10 - CONCLUSION: Normal examination. Javon Ch MD Reviewed by me Assessment and Plan Assessment and Plan 76-year-old male with a previous history of alcohol abuse who has been sober for the past 30 days who was admitted to the psychiatric unit under Haley act for delusional thoughts. Patient also has past medical history significant for hypertension COPD and chronic constipation. Hospital services have been requested for medical management of these. Delirium in patient with history of EtOH abuse - Obtain CMP, RPR, B12 level and CXR - CT head unremarkable - UA without e/o UTI Possible alcohol hallucinosis - CIWA protocol - Thiamine and Folic acid daily - monitor for signs of alcohol withdrawal - Obtain mag and phos levels Hypertension - Adequate control at present - resume home antihypertensive meds Cardiac murmur - Will obtain echocardiogram for further evaluation COPD - Duonebs prn Hyponatremia - likely due to volume depletion/poor oral intake - encourage PO intake - am labs to monitor Hypokalemia - replete - am labs to monitor Dyslipidemia - resume statin - follow up on fasting lipid panel GERD - resume PPI DVT prophylaxis - encourage ambulation This note was transcribed by ary Bond. I, Dr. Chinedu Art personally performed the history, physical exam, and medical decision making; and confirmed the accuracy of the information in the transcribed note. Authenticated by Dr. Chinedu Art on 02/08/17 at 10:55 Jami Bond February 08, 2017 10:52 Chinedu Harrison MD Feb 19, 2017 12:52
[2017-02-08] MEDS ORDERED: POTASSIUM CHLORIDE 10 MEQ CONTROLLED RELEASE TAB PO ONE (11:00)
[2017-02-08] MEDS: THIAMINE HCL 100 MG TAB PO SCH (11:21)
[2017-02-08] MEDS: LISINOPRIL 5 MG TAB PO SCH (11:21)
[2017-02-08] MEDS: FOLIC ACID 1 MG TAB PO SCH (11:21)
[2017-02-08 12:13] LABS: ANION GAP 6 MEQ/L (5-15); AST (GOT) 24 U/L (15-37); BICARBONATE 30.5 MEQ/L (21.0-32.0); BLOOD UREA NITROGEN 7 MG/DL (7-18); CHLORIDE 98 MEQ/L (98-107); GLOMERULAR FILTRATION RATE 122 ML/MIN (>89); POTASSIUM 3.9 MEQ/L (3.5-5.1); SODIUM (NA) 134 MEQ/L (136-145)
[2017-02-08 12:16] LABS: ALKALINE PHOSPHATASE 90 U/L (45-117); ALT (GPT) 22 U/L (12-78); TOTAL BILIRUBIN ADULT 0.6 MG/DL (0.2-1.0)
[2017-02-08] MEDS ORDERED: LORazepam 2 MG TAB PO PRN (13:15)
[2017-02-08] MEDS ORDERED: LORazepam 2 MG/ML VIAL IV PUSH PRN ×4 (13:15)
--- NOTE | 2017-02-08 13:24 | HHI.HP ---
Provisional Diagnosis Admission Date February 08, 2017 at 08:00 [place] I. Unspecified psychosis, rule out alcohol hallucinosis, rule out major neurocognitive disorder with psychotic features, rule out late onset schizophrenia,, rule out delusional disorder [place] II. Deferred [place] III. HTN, GERD [place] IV. Poor family support, history of alcoholism [place] V. 35 Certification of Person's Competence To Provide Express and Informed Consent I have personally examined Yanna SilvaJr , a person being served at [facility] on, February 08, 2017 13:11. Express and informed consent means consent voluntarily given in writing, by a competent person, after sufficient explanation and disclosure of the subject matter involved to enable the person to make a knowing and willful decision without any element of force, fraud, deceit, duress, or other form of constraint or coercion. This person is 18 years of age or older, is not now known to be incompetent to consent to treatment with a guardian advocate, and does not have a health care surrogate or proxy currently making medical treatment decisions. I have found this person to be one of the following: [] Competent to provide express and informed consent, as defined above, for voluntary admission to this facility and is competent to provide express and informed consent for treatment. He/she has the consistent capacity to make well reasoned, willful, and knowing decisions concerning his or her medical or mental health treatment. The person fully and consistently understands the purpose of the admission for examination/placement and is fully capable of personally exercising all rights assured [place] [] Incompetent to provide express and informed consent to voluntary admission, and this is incompetent to provide express and informed consent to treatment. The person must be transferred to involuntary status and a petition for a guardian advocate filed with the Circuit Court. [X] Refusing to provide express and informed consent to voluntary admission but is competent to provide express and informed consent for treatment. The person must be discharged or transferred to involuntary status. Form shall be completed within 24 hours of a person's arrival at the receiving facility and filed in the clinical record of each person: 1. Admitted on a voluntary basis 2. Permitted to provide express and informed consent to his/her own treatment 3. Allowed to transfer from involuntary to voluntary status 4. Prior to permitting a person to consent to his or her own treatment after having been previously found incompetent to consent to treatment. History of Present Illness Capacity: Has Capacity HPI The patient is a 76-year-old man, domiciled alone in [place], divorce, , without any previous psychiatric history, no previous psychiatric hospitalizations, no previous suicidal attempts, history of alcohol use, he reports in early full remission, medical history of GERD and HTN, who came to the hospital complaining of increased auditory hallucinations. Patient was Haley acted by the ER physician due to delusional thoughts. On psychiatric evaluation today patient was found sitting in his bed in the ER, calm, cooperative and pleasant at the beginning. Patient says that he came to the ER because he has been having visual hallucinations of people coming inside his room and poisoning his food and his stealing things from his house. He says that he also has been experiencing very frequently the sensation of being in another place "with different nick, different colors, sometimes is even raining "when he is in his house. He says that these perceptual disturbances has been increasing in severity, frequency and intensity. Most of these hallucinations are usually visual, he denies auditory hallucinations. Most of the time he seems to be aware of the unreal nature of them "but sometimes is difficult for me to define the reality". Patient reports okay mood, he denies depression, he denies anhedonia, he denies hopelessness, he denies helplessness, as well as worthlessness, low energy, low appetite. He does report anxiety and problems sleeping at night. He says that in the last 5 days he has not slept "I am afraid". When patient was told that a psychiatric hospitalization would be useful to investigate further these neuropsychiatric symptoms patient became infuriated and he stays that he has to live because he has important secrets future with the FBI, secrets that we change the world. He says that he he knows where millions of dollars are hidden and some other information that just Filiberto Portillo could know. Patient became agitated and guarded and also displays an episode of paranoia against staff and myself. He says that he is not going to speak with me anymore because I could be part "of them". She is fully oriented 3. Patient does not have any attention deficit. He could repeat 3 words, even though he just could remember one of them 5 minutes later spontaneously, but the other 2 with cueing. On Mini-Mental evaluation patient shows adequate language, good executive function, good abstract thinking, repetition, naming, concentration. However community planning technician test could not be finish due to patient's lack of cooperation. He reports daily use of alcohol for many years in the past. But, he claims to be sober for over a month. Review of Systems Constitutional: DENIES: Diaphoretic episodes, Fatigue, Fever, Weight gain, Weight loss, Chills, Dizziness, Change in appetite, Night Sweats Endocrine: DENIES: Heat/cold intolerance, Polydipsia, Polyuria, Polyphagia Eyes: DENIES: Blurred vision, Diplopia, Eye inflammation, Eye pain, Vision loss , Photosensitivity, Double Vision Ears, nose, mouth, throat: DENIES: Tinnitus, Hearing loss, Vertigo, Nasal discharge, Oral lesions, Throat pain, Hoarseness, Ear Pain, Running Nose, Epistaxis, Sinus Pain, Toothache, Odynophagia Respiratory: DENIES: Apneas, Cough, Snoring, Wheezing, Hemoptysis, Sputum production, Shortness of breath Cardiovascular: DENIES: Chest pain, Palpitations, Syncope, Dyspnea on Exertion , PND, Lower Extremity Edema, Orthopnea, Claudication Gastrointestinal: DENIES: Abdominal pain, Black stools, Bloody stools, Constipation, Diarrhea, Nausea, Vomiting, Difficulty Swallowing, Anorexia Genitourinary: DENIES: Sexual dysfunction, Urinary frequency, Urinary incontinence, Urgency, Hematuria, Dysuria, Nocturia, Penile Discharge, Testicular Pain, Testicular Swelling Musculoskeletal: DENIES: Joint pain, Muscle aches, Stiffness, Joint Swelling, Back pain, Neck pain Integumentary: DENIES: Abnormal pigmentation, Nail changes, Pruritus, Rash Hematologic/lymphatic: DENIES: Bruising, Lymphadenopathy Immunologic/allergic: DENIES: Eczema, Urticaria Neurologic: DENIES: Abnormal gait, Headache, Localized weakness, Paresthesias, Seizures, Speech Problems, Tremor, Poor Balance Psychiatric: COMPLAINS OF: Hallucinations, Delusions (paranoid), DENIES: Anxiety, Confusion, Mood changes, Depression, Agitation, Suicidal Ideation, Homicidal Ideation Past Psych History Violence risk - self (6 mos) Patient has an increased chance of violence to self and others Substance Abuse History Drugs/Alcohol past 12 months Patient reports alcoholism in the past, but has been sober for a month Past Family Social History Coded Allergies: No Known Allergies (Unverified , 02/07/17) Reported Medications Omeprazole 20 Mg Tab20 Mg PO DAILY #30 TAB Ref 0 02/07/17 Ipratropium-Albuterol Neb (Duoneb)0.5-2.5 Mg/3 Ml Neb1 Nebule INH Q8HR NEB PRN ( SHORTNESS OF BREATH) #90 NEBULE Ref 0 01/02/17 Verapamil 120 Mg [id number] Mg PO DAILY #60 TAB Ref 0 01/02/17 Pravastatin 20 Mg Tab20 Mg PO HS #30 TAB Ref 0 01/02/17 Niacin 500 Mg [id number] Mg PO HS #30 TAB Ref 0 01/02/17 Loratadine 10 Mg Tab10 Mg PO DAILY PRN (ALLERGIES) Ref 0 01/02/17 Lisinopril 5 Mg Tab5 Mg PO DAILY #30 TAB Ref 0 01/02/17 Potassium Chloride ER 10 Meq Tab10 Meq PO DAILY #30 TAB Ref 0 01/02/17 Calcium Ascorbate 500 Mg [id number] Mg PO DAILY Ref 0 01/02/17 Aspirin (Aspirin Low Dose)81 Mg Chew81 Mg CHEW EVERY OTHER DAY Ref 0 01/02/17 Current Medications Medications (Trade) Dose Ordered Sig/[place] Route Start Time Stop Time Status Last Admin (NS Flush) 2 ml UNSCH PRN IV FLUSH 02/07/17 20:45 (Ativan Inj) 1 mg Q6H PRN IM 02/08/17 09:00 (Ativan Inj) 0.5 mg Q12H PRN IM 02/08/17 08:00 (Tylenol) 650 mg Q4H PRN PO 02/08/17 08:00 (Milk Of Magnesia Liq) 30 ml DAILY PRN PO 02/08/17 08:00 (Mag-Al Plus Susp Liq) 30 ml Q6H PRN PO 02/08/17 08:00 (Habitrol 21 Mg Patch.24 Hr) 1 patch DAILY T-DERMAL 02/08/17 09:00 (risperDAL) 0.5 mg BID PO 02/08/17 09:00 (ZyPREXA INJ) 5 mg Q12H PRN IM 02/08/17 08:00 Miscellaneous Information 1 DAILY T-DERMAL 02/08/17 09:00 (Vitamin B1) 100 mg DAILY PO 02/08/17 11:00 02/08/17 11:21 (Folate) 1 mg DAILY PO 02/08/17 11:00 02/08/17 11:21 (Prinivil) 5 mg DAILY PO 02/08/17 10:45 02/08/17 11:21 (Claritin) 10 mg DAILY PRN PO 02/08/17 10:45 (KCl) 10 meq DAILY PO 02/09/17 09:00 (Pravachol) 20 mg HS PO 02/08/17 21:00 (Isoptin) 120 mg DAILY PO 02/08/17 10:45 (Slo-Niacin) 500 mg HS PO 02/08/17 21:00 (Protonix) 20 mg DAILY PO 02/09/17 09:00 Family History He denies psychiatric family history Social History Patient was born and raised in [place], he lives alone and poor [place], his divorce, , highest level of education is high school Patient's Strengths (min. 2) Patient has some insight of his auditory hallucination Physical Exam On physical exam, psychomotor agitation is present, but not tremors, no withdrawal, no EPS, no stiffness Vital Signs Vital Signs Date Time Temp Pulse Resp B/P Pulse Ox O2 Delivery O2 Flow Rate FiO2 02/08/17 08:58 96.9 84 17 168/79 95 02/08/17 07:05 Room Air Lab Results Ammonia 16 TSH 1.7 ETOH < [address] without acute findings Mental Status Examination Appearance man, age appearing, hospital clothes, the beginning he was calm and cooperative, but became irritable and hostile Speech: Unremarkable Orientation: x3 Memory: Unremarkable Thought Process: Goal Directed, Linear Thought Content: Bizarre thinking, Derealization, Paranoid Language Fluent and spontaneous Fund of Knowledge Adequate Hallucination Type: Visual Attention and Concentration: Good Suicidal Ideation: No Previous Suicide Attempts: No Homicidal Ideation: No Previous Homicide Attempts: No Insight: Fair Judgment: Poor Affect: Irritable, Oppositional Mood: Angry, Irritable Motor Activity: Normal gait Assessment & Plan Problem List: (1) Psychosis Assessment & Plan: The patient is a 76-year-old man without any previous psychiatric history, no previous psychiatric hospitalizations, no previous suicidal attempts, history of alcohol use, he reports in early full remission, medical history of GERD and HTN, who came to the hospital complaining of increased auditory hallucinations. Patient was Haley acted by the ER physician due to delusional thoughts. On psychiatric evaluation patient reports progressive, increased in intensity and frequency visual hallucinations of people coming inside his house to poison him and also of changes in his surrounding environment. Patient seems to be insightful about the nature of this particular perceptual disturbance. He denies auditory hallucinations. Patient also presents persecutory and grandiose delusions of being the special deliverer of messages to Filiberto Portillo and the FBI. He denies suicidal or homicidal ideation, patient seems to be cognitively intact. Difficult to define if current presentation is the result of a primary psychosis, alcohol- related hallucinosis, alcohol withdrawal, or ongoing sublet dementia with psychosis. However, patient represents an acute danger to himself and others due to the level of psychosis and impaired contact with reality. He will be admitted in psychiatry for stabilization and safety. We will start Risperdal 0.5 mg for psychosis. [facility] protocol, Will consult psychiatry for second opinion. mold release worker intervention for collateral information, psychosocial assessment, individual and group therapy. Extensive psycho education, supportive motivation provided. We'll consult hospitalist to a start of further workup of the potential medical causes of psychosis. Patient might benefit also of a neurological consult. 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
--- NOTE | 2017-02-08 15:46 | RADRPT ---
EXAM DATE/TIME: 02/08/2017 15:05 [place] COMPARISON: CHEST SINGLE AP, January 02, 2017, 23:17. INDICATIONS : Altered mental status MEDICAL HISTORY : None. SURGICAL HISTORY : None. ENCOUNTER: Initial ACUITY: 1 day PAIN SCORE: 0/10 LOCATION: Bilateral chest FINDINGS: A single view of the chest demonstrates the lungs to be symmetrically aerated without evidence of mas s, infiltrate or effusion. The cardiomediastinal contours are unremarkable. Osseous structures are intact. CONCLUSION: No evidence of acute cardiopulmonary disease. Javon Delgado MD on February 08, 2017 at 15:43 Board Certified Radiologist. This report was verified electronically.
[2017-02-08 20:03] VITALS: BP 137/61; PULSE 62; RESP 18; TEMP 97.4; O2SAT 97
[2017-02-08] MEDS: NIACIN 500 MG EXTENDED RELEASE TAB PO SCH (21:18)
[2017-02-08] MEDS: PRAVASTATIN SOD 20 MG TAB PO SCH (21:18)
[2017-02-09 06:38] VITALS: BP 163/75; PULSE 76; RESP 18; TEMP 98.2; O2SAT 97
[2017-02-09 08:08] VITALS: BP 151/58; PULSE 73; O2SAT 95
[2017-02-09 08:36] LABS: ANION GAP 7 MEQ/L (5-15); BICARBONATE 30.1 MEQ/L (21.0-32.0); BLOOD UREA NITROGEN 7 MG/DL (7-18); CHLORIDE 98 MEQ/L (98-107); GLOMERULAR FILTRATION RATE 110 ML/MIN (>89); POTASSIUM 3.8 MEQ/L (3.5-5.1); SODIUM (NA) 135 MEQ/L (136-145)
[2017-02-09 08:37] LABS: HDL CHOLESTEROL 55.6 MG/DL (40.0-60.0); LDL CHOLESTEROL 85 MG/DL (0-99)
[2017-02-09] MEDS: THIAMINE HCL 100 MG TAB PO SCH (08:47)
[2017-02-09] MEDS: POTASSIUM CHLORIDE 10 MEQ CONTROLLED RELEASE TAB PO SCH (08:47)
[2017-02-09] MEDS: FOLIC ACID 1 MG TAB PO SCH (08:47)
[2017-02-09] MEDS: PANTOPRAZOLE SOD 20 MG DELAYED RELEASE TAB PO SCH (08:47)
[2017-02-09] MEDS: VERAPAMIL HCL 120 MG TAB PO SCH (08:47)
[2017-02-09] MEDS: LISINOPRIL 5 MG TAB PO SCH (08:47)
[2017-02-09] MEDS: NICOTINE 21 MG/24 HR PATCH T-DERMAL SCH (08:48)
[2017-02-09] MEDS: REMOVE OLD PATCH T-DERMAL SCH (08:48)
[2017-02-09] MEDS: risperiDONE 0.5 MG TAB PO SCH (08:48)
[2017-02-09] MEDS ORDERED: NON-FORMULARY DRUG (Calcium Ascorbate 500 MG) PO SCH (09:00)
--- NOTE | 2017-02-09 12:15 | HHI.PYPN ---
Subjective Remarks Patient seen by me in his room with nurse Deedee, chart reviewed. Patient i is a history of alcoholism with multiple DUIs stating he had his last drink about a month ago. It is at about that time that he started getting the feelings that people were invading his house stealing property monitoring him. The spend quite distraught and vigilant. He also feels that he has information and is apartment of the [facility]. 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 He denies any prior psychiatric contact hospitalizations his psychotropic medications. He does acknowledges drinking "most of his life" in a history of at least 3-4 DUIs in the past. He denies other drug use. Patient states she is . He had 2 children a son and a daughter. He said this son around 1989 to being sucked i into a tree shredder and "did not have enough to bury" patient this time showing some resistance to taking medication. I encouraged him to cooperate with this at the present time. Distal continue medication no change however also get a neurology consult though the patient appears fairly well oriented there is diffuse confusion noted with him Dr. Jordan initially saw the patient did the initial eval and a first opinion supporting the Haley act petition I do agree with that thus I will cosign second opinion petition supporting Haley act Review of Systems Except as stated in HPI: all other systems reviewed are Neg Objective Alert: Yes [place]: Person, Place (somewhat vague thought this might be a detox facility), Date, Situation (somewhat vague) Mood: Anxious, Calm, Other (vigilant) Affect: Euthymic, Labile Memory Intact: Comment (poor) Hallucinations: Other (denies) Delusions: Yes Delusion Type: Grandiose, Paranoid Suicidal: Ideation (denies) Homicidal: Ideation (denies) Insight/Judgment Poor Labs Test 02/09/17 07:32 Sodium Level 135 MEQ/L Potassium Level 3.8 MEQ/L Chloride Level 98 MEQ/L Carbon Dioxide Level 30.1 MEQ/L Anion Gap 7 MEQ/L Blood Urea Nitrogen 7 MG/DL Creatinine 0.70 MG/DL Estimat Glomerular Filtration 110 ML/MIN Rate Random Glucose 93 MG/DL Calcium Level 9.0 MG/DL Triglycerides Level 58 MG/DL Cholesterol Level 152 MG/DL LDL Cholesterol 85 MG/DL HDL Cholesterol 55.6 MG/DL Cholesterol/HDL Ratio 2.73 RATIO Vitals/IOs Vital Signs Date Time Temp Pulse Resp B/P Pulse Ox O2 Delivery O2 Flow Rate FiO2 02/09/17 08:08 73 151/58 95 02/09/17 06:38 98.2 18 02/08/17 07:05 Room Air Intake and Output 02/08/17 02/08/17 02/08/17 07:59 15:59 23:59 Intake Total 360 ml 720 ml Balance 360 ml 720 ml Assessment & Plan Problem List: (1) Psychosis ICD Code: F29 Assessment & Plan Estimated LOS: days patient remains quite paranoid delusional and grandiose. Initially refusing medication encouraging compliance. Also get neurology consult Justification for Cont. Inpt. 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
[2017-02-09 14:58] LABS: RAPID PLASMA REAGIN SCREEN NON-REACTIVE (NON-REACTVE)
--- NOTE | 2017-02-09 15:58 | EC ---
Study Study Date:02/09/2017 STUDY CONCLUSIONS SUMMARY - Left ventricle: The cavity size was normal. Wall thickness was normal. Systolic function was normal. The estimated ejection fraction was in the range of 55% to 60%. Wall motion was normal; there were no regional wall motion abnormalities. Doppler parameters are consistent with abnormal left ventricular relaxation (grade 1 diastolic dysfunction). - Aortic valve: Transvalvular velocity was minimally increased. There was mild stenosis. Valve area: 1.14cm^2(VTI). Valve area: 1.1cm^2 (Vmax). - Pulmonary arteries: PA peak pressure: 36mm Hg (S). If LV function is below 40, please consider prescribing an ACEI or ARB or document rationale for non-use. PROCEDURE DATA STUDY STATUS: Elective. Procedure: Transthoracic echocardiography. Image quality was good. Scanning was performed from the parasternal, apical, and subcostal acoustic windows. Study completion: The patient tolerated the procedure well. Transthoracic echocardiography. M-mode, complete 2D, complete spectral Doppler, and color Doppler. Height: Height: 70in. Weight: Weight: 167.7lb. Body mass index: BMI: 24.1kg/m^2. Body surface area: BSA: 1.94m^2. Patient status: Inpatient. CARDIAC ANATOMY LEFT VENTRICLE: The cavity size was normal. Wall thickness was normal. Systolic function was normal. The estimated ejection fraction was in the range of 55% to 60%. Wall motion was normal; there were no regional wall motion abnormalities. Doppler parameters are consistent with abnormal left ventricular relaxation (grade 1 diastolic dysfunction). AORTIC VALVE: Trileaflet; mildly thickened, mildly calcified leaflets. Doppler: Transvalvular velocity was minimally increased. There was mild stenosis. No regurgitation. Valve area: 1.14cm^2(VTI). Indexed valve area: 0.59cm^2/m^2 (VTI). Valve area: 1.1cm^2 (Vmax). Indexed valve area: 0.57cm^2/m^2 (Vmax). Mean gradient: 8mm Hg (S). Peak gradient: 14mm Hg (S). AORTA: Aortic root: The aortic root was normal in size. MITRAL VALVE: Structurally normal valve. Doppler: Transvalvular velocity was within the normal range. There was no evidence for stenosis. Trace regurgitation. Peak gradient: 2mm Hg (D). LEFT ATRIUM: The atrium was normal in size. RIGHT VENTRICLE: The cavity size was normal. Wall thickness was normal. PULMONIC VALVE: Doppler: Transvalvular velocity was within the normal range. There was no evidence for stenosis. No regurgitation. TRICUSPID VALVE: Structurally normal valve. Doppler: Transvalvular velocity was within the normal range. Trace regurgitation. PULMONARY ARTERY: The main pulmonary artery was normal-sized. Systolic pressure was within the normal range. RIGHT ATRIUM: The atrium was normal in size. PERICARDIUM: There was no pericardial effusion. SYSTEMIC VEINS: Inferior vena cava: The vessel was normal in size. Patient weight: 167.7lb _Ejection fraction:_ 65-75% _Fractional shortening:_ 32% up to 5Kg 5-11.5Kg 11.6-22.9Kg 23-45Kg 45-57Kg Aortic Root 7-13 <17 13-22 17-27 17-27 LA diam 6-13 <23 24-38 33-47 37-40 RVID 10-17 7-15 7-15 7-18 8-17 LVIDd 12-22 <32 24-38 33-47 37-40 LVPW 2-4 3-6 5-7 6-8 7-8 IVS 2-4 3-6 5-7 6-8 7-8 BASIC MEASUREMENTS ADULT NORMAL Left ventricle LV internal dimension, ED, chordal *38.5 mm 43-52 level, PLAX LV internal dimension, ES, chordal 25.5 mm 23-38 level, PLAX Fractional shortening, chordal level, 34 % >29 PLAX LV posterior wall thickness, ED 9.77 mm IVS/LVPW ratio, ED 0.87 <1.3 Ventricular septum Septal thickness, ED 8.52 mm Aortic valve Leaflet separation 18 mm 15-26 Aorta Root diameter, ED 31 mm Left atrium Anterior-posterior dimension 31 mm Anterior-posterior dimension index 1.6 cm/m^2 <2.2 BASIC MEASUREMENTS ADULT NORMAL Aortic valve Leaflet separation 18 mm 15-26 DOPPLER MEASUREMENTS ADULT NORMAL Main pulmonary artery Pressure, S *36 mm Hg =30 Aortic valve Peak velocity, S 187 cm/s Mean velocity, S 135 cm/s VTI, S 41.1 cm Mean gradient, S 8 mm Hg Peak gradient, S 14 mm Hg Valve area, VTI 1.14 cm^2 Valve area index, VTI 0.59 cm^2/m^2 Valve area, Vmax 1.1 cm^2 Valve area index, Vmax 0.57 cm^2/m^2 Mitral valve Peak E-wave velocity 71.6 cm/s Peak A-wave velocity 95.8 cm/s Deceleration time *317 ms 150-230 Peak gradient, D 2 mm Hg Peak E/A ratio 0.7 Tricuspid valve Regurgitant peak velocity 261 cm/s Peak RV-RA gradient, S 27 mm Hg Maximal regurgitant velocity 261 cm/s Systemic veins Estimated CVP 10 mm Hg Right ventricle RV pressure, S *37 mm Hg <30 Pulmonic valve Peak velocity, S 53.4 cm/s LEGEND: Mean values are shown as u=mean value. Asterisk (*) washburn values outside specified normal range. Prepared and signed by Teddy Gonzalez [id number]
[2017-02-09 17:00] VITALS: BP 142/75; PULSE 68; RESP 18; TEMP 97.2
[2017-02-09 17:55] LABS: HEMOGLOBIN A1a 1.1 %; HEMOGLOBIN A1b 1.6 %; HEMOGLOBIN Ao 85.7 %; HEMOGLOBIN LA1C 1.8 %; HEMOGLOBIN P3 3.3 %
--- NOTE | 2017-02-09 19:27 | HHI.PR ---
Subjective Remarks BP noted to be elevated sodium trending up denies cp/sob Objective Vitals Vital Signs Date Time Temp Pulse Resp B/P Pulse Ox O2 Delivery O2 Flow Rate FiO2 02/09/17 17:00 97.2 68 18 142/75 02/09/17 08:08 73 151/58 95 02/09/17 06:38 98.2 76 18 163/75 97 02/08/17 20:03 97.4 62 18 137/61 97 I/O 02/08/17 02/08/17 02/08/17 02/09/17 02/09/17 02/09/17 06:59 14:59 22:59 06:59 14:59 22:59 Intake Total 360 ml 720 ml 1200 ml 1200 ml Balance 360 ml 720 ml 1200 ml 1200 ml Intake Oral 360 ml 720 ml 1200 ml 1200 ml # Voids 1 7 2 Result Diagram: 02/07/17204702/09/17 0732 Imaging Last Impressions Chest X-Ray 02/08/17 0000 Signed Impressions: Service Date/Time: Wednesday, February 08, 2017 15:05 - CONCLUSION: No evidence of acute cardiopulmonary disease. Javon Delgado MD Head CT 02/07/172039 Signed Impressions: Service Date/Time: Tuesday, February 07, 2017 22:10 - CONCLUSION: Normal examination. Javon Ch MD Objective Remarks GENERAL: This is a well-nourished, well-developed patient, in no apparent distress. SKIN: No rashes, ecchymoses or lesions. Cool and dry. HEAD: Atraumatic. Normocephalic. No temporal or scalp tenderness. EYES: Pupils equal round and reactive. Extraocular motions intact. No scleral icterus. No injection or drainage. ENT: Nose without bleeding, purulent drainage or septal hematoma. Throat without erythema, tonsillar hypertrophy or exudate. Uvula midline. Airway patent. NECK: Trachea midline. No lymphadenopathy. Supple, nontender, no meningeal signs. CARDIOVASCULAR: Regular rate and rhythm. 3/6 systolic murmur appreciated. RESPIRATORY: Clear to auscultation. Breath sounds equal bilaterally. No wheezes , rales, or rhonchi. GASTROINTESTINAL: Abdomen soft, non-tender, nondistended. No hepato-splenomegaly , or palpable masses. No guarding. MUSCULOSKELETAL: Extremities without clubbing, cyanosis, or edema. No joint tenderness, effusion, or edema noted. No calf tenderness. NEUROLOGICAL: Awake and alert. Able to move all extremities. No focal neurologic findings appreciated. Normal speech. DTRs intact and 3+ bilateral upper and lower extremities. Medications and IVs Current Medications Medications (Trade) Dose Ordered Sig/[place] Route Start Time Stop Time Status Last Admin (NS Flush) 2 ml UNSCH PRN IV FLUSH 02/07/17 20:45 (Ativan Inj) 0.5 mg Q12H PRN IM 02/08/17 08:00 Hold (Tylenol) 650 mg Q4H PRN PO 02/08/17 08:00 (Milk Of Magnesia Liq) 30 ml DAILY PRN PO 02/08/17 08:00 (Mag-Al Plus Susp Liq) 30 ml Q6H PRN PO 02/08/17 08:00 (Habitrol 21 Mg Patch.24 Hr) 1 patch DAILY T-DERMAL 02/08/17 09:00 (risperDAL) 0.5 mg BID PO 02/08/17 09:00 Hold 02/08/17 21:18 (ZyPREXA INJ) 5 mg Q12H PRN IM 02/08/17 08:00 Hold Miscellaneous Information 1 DAILY T-DERMAL 02/08/17 09:00 (Vitamin B1) 100 mg DAILY PO 02/08/17 11:00 02/09/17 08:47 (Folate) 1 mg DAILY PO 02/08/17 11:00 02/09/17 08:47 (Prinivil) 5 mg DAILY PO 02/08/17 10:45 02/09/17 08:47 (Claritin) 10 mg DAILY PRN PO 02/08/17 10:45 (KCl) 10 meq DAILY PO 02/09/17 09:00 02/09/17 08:47 (Pravachol) 20 mg HS PO 02/08/17 21:00 02/08/17 21:18 (Isoptin) 120 mg DAILY PO 02/08/17 10:45 02/09/17 08:47 (Slo-Niacin) 500 mg HS PO 02/08/17 21:00 02/08/17 21:18 (Protonix) 20 mg DAILY PO 02/09/17 09:00 02/09/17 08:47 (Ativan) 1 mg Q4H PRN PO 02/08/17 13:15 Hold (Ativan Inj) 1 mg Q4H PRN IV PUSH 02/08/17 13:15 Hold (Ativan) 2 mg Q2H PRN PO 02/08/17 13:15 Hold (Ativan Inj) 2 mg Q2H PRN IV PUSH 02/08/17 13:15 Hold (Ativan Inj) 2 mg Q1H PRN IV PUSH 02/08/17 13:15 Hold (Ativan Inj) 2 mg Q15M PRN IV PUSH 02/08/17 13:15 Hold (Ativan) 0.5 mg Q12H PRN PO 02/08/17 13:30 Hold Urinary Catheter: No Vascular Central Line Catheter: No A/P Assessment and Plan 76-year-old male with a previous history of alcohol abuse who has been sober for the past 30 days who was admitted to the psychiatric unit under Haley act for delusional thoughts. Patient also has past medical history significant for hypertension COPD and chronic constipation. Hospital services have been requested for medical management of these. Delirium in patient with history of EtOH abuse - Head CT negative - Patient slightly hyponatremic on CMP, otherwise normal. B12 normal. - Chest x-ray reviewed by me does not show any cardiomegaly pulmonary disease. - UA without e/o UTI Possible alcohol withdrawal hallucinosis - [facility] protocol - Thiamine and Folic acid daily - monitor for signs of alcohol withdrawal -Magnesium and phosphorus normal. Hypertension - Uncontrolled blood pressure, SBP into the 160s. Increase lisinopril to 10 mg po daily. Will give 5 mg PO once. Continue to monitor vital signs. Cardiac murmur - Will obtain echocardiogram for further evaluation COPD - Duonebs prn Hyponatremia - likely due to volume depletion/poor oral intake - encourage PO intake -Sodium trending up. Hypokalemia - Replaced with oral potassium. Potassium 3.8 on 02/09, continue to monitor BMP. Dyslipidemia -Continue statin -Fasting lipid profile within normal range. LDL 85. GERD -Continue PPI DVT prophylaxis - encourage ambulation Chinedu Harrison MD February 09, 2017 19:27
--- NOTE | 2017-02-09 21:28 | MB ---
cc: JASON LI M.D. DATE OF CONSULTATION 02/09/2017 He is a 76-year-old seen in neurological consultation. HISTORY The history includes the fact that he apparently stopped drinking alcohol about a month ago and he has been delusional. He is making up stories and has been admitted to the psychiatric unit. I spoke to Dr. Lara earlier today. Apparently he drank alcohol for many years with multiple DUIs. He is now describing to me that he felt threatened . He felt that some people were following him and they were threatening him and they had the keys to his mailbox, the keys to his car and actually may have changed things in his car, etc. He told me that he had stopped drinking after his son got killed in 1990 or 1991 but evidently it appears that he stopped drinking just a month ago. He has one daughter who lives in [place] and he says he lives by himself. MEDICATIONS He is listed as takin. Verapamil. 2. Pravastatin. 3. Aspirin. 4. Omeprazole. He denies any history of stroke, seizures or TIAs. NEUROLOGICAL EXAMINATION The neurologic exam showed him to be alert pleasant, cooperative, ambulating without any assistive device. His gait is fairly reasonable though his upper trunk is bent over. No tremoring, no rigidity. Ocular movements and visual rivera full. His facial expression is somewhat poor but he was cooperative. He is oriented to place and knows the date of his admission. His visual rivera were full. Reflexes were 1-2+ throughout and plantar responses flexor. IMAGING He had a CT brain on the showing normal findings. ASSESSMENT Delusional syndrome with history of apparent discontinuation of alcohol about a month ago. He is being followed by the medicine team and his medications now include vitamins, thiamine, folic acid, Ativan as needed. I do not think there is an acute withdrawal syndrome but I agree with the vitamin management and otherwise psychiatric care. His CT brain was negative and I do not think we need to proceed with any other imaging studies at this point. His B12 level was greater than 2000. TSH normal. Urine toxicology negative. He can be followed neurologically [facility] as outpatient. Please call us back if there is any neurologic change. Thank you for asking us to assist in his care. MD MELODIE Pearson/KK /5:12 PM /9:15 PM
[2017-02-09] MEDS: NIACIN 500 MG EXTENDED RELEASE TAB PO SCH (22:01)
[2017-02-09] MEDS: PRAVASTATIN SOD 20 MG TAB PO SCH (22:01)
[2017-02-10] MEDS: MAGNESIUM HYDROXIDE SUSP 30 ML CUP PO PRN ×2 (02:12→22:05)
[2017-02-10 06:00] VITALS: BP 135/65; PULSE 86; RESP 20; TEMP 98.2; O2SAT 98
[2017-02-10] MEDS: NICOTINE 21 MG/24 HR PATCH T-DERMAL SCH (07:51)
[2017-02-10] MEDS: REMOVE OLD PATCH T-DERMAL SCH (07:51)
[2017-02-10] MEDS: FOLIC ACID 1 MG TAB PO SCH (08:48)
[2017-02-10] MEDS: VERAPAMIL HCL 120 MG TAB PO SCH (08:48)
[2017-02-10] MEDS: PANTOPRAZOLE SOD 20 MG DELAYED RELEASE TAB PO SCH (08:48)
[2017-02-10] MEDS: ASPIRIN 81 MG CHEW TAB CHEW SCH (08:48)
[2017-02-10] MEDS: POTASSIUM CHLORIDE 10 MEQ CONTROLLED RELEASE TAB PO SCH (08:48)
[2017-02-10] MEDS: LISINOPRIL 5 MG TAB PO SCH (08:48)
[2017-02-10] MEDS: THIAMINE HCL 100 MG TAB PO SCH (08:48)
--- NOTE | 2017-02-10 16:10 | HHI.PYPN ---
Subjective Remarks Patient seen in day room with nurse Lucio, patient calm cooperative initially somewhat resistant to taking the Respinol. He stated he had had a trial of Prozac in the past that helped his mood. We decided to cooperate with each other I will start him on Prozac 10 mg daily and he'll be willing to take the Respinol. Patient continues with his delusions. Review of Systems Except as stated in HPI: all other systems reviewed are Neg Objective Alert: Yes [place]: Person, Place (somewhat vague thought this might be a detox facility), Date, Situation (somewhat vague) Mood: Anxious, Calm, Other (vigilant) Affect: Euthymic, Labile Memory Intact: Comment (poor) Hallucinations: Other (denies) Delusions: Yes Delusion Type: Grandiose, Paranoid Suicidal: Ideation (denies) Homicidal: Ideation (denies) Insight/Judgment Very poor Vitals/IOs Vital Signs Date Time Temp Pulse Resp B/P Pulse Ox O2 Delivery O2 Flow Rate FiO2 02/10/17 06:00 98.2 86 20 135/65 98 02/08/17 07:05 Room Air Intake and Output 02/09/17 02/09/17 02/09/17 07:59 15:59 23:59 Intake Total 2400 ml 600 ml Balance 2400 ml 600 ml Assessment & Plan Problem List: (1) Psychosis ICD Code: F29 Assessment & Plan Estimated LOS: days patient continues psychotic delusional Lizbeth medication adjustments above Justification for Cont. Inpt. 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
[2017-02-10] MEDS: FLUoxetine HCL 10 MG CAP PO SCH (17:28)
--- NOTE | 2017-02-10 17:57 | HHI.PR ---
Subjective Remarks denies any complaints feels well denies headache denies cp/sob bp better Objective Vitals Vital Signs Date Time Temp Pulse Resp B/P Pulse Ox O2 Delivery O2 Flow Rate FiO2 02/10/17 06:00 98.2 86 20 135/65 98 I/O 02/09/17 02/09/17 02/09/17 02/10/17 02/10/17 02/10/17 06:59 14:59 22:59 06:59 14:59 22:59 Intake Total 720 ml 1200 ml 1800 ml 720 ml 960 ml 1080 ml Balance 720 ml 1200 ml 1800 ml 720 ml 960 ml 1080 ml Intake Oral 720 ml 1200 ml 1800 ml 720 ml 960 ml 1080 ml # Voids 7 4 3 2 Result Diagram: 02/07/17204702/09/17731 Objective Remarks GENERAL: This is a well-nourished, well-developed patient, in no apparent distress. SKIN: No rashes, ecchymoses or lesions. Cool and dry. HEAD: Atraumatic. Normocephalic. No temporal or scalp tenderness. EYES: Pupils equal round and reactive. Extraocular motions intact. No scleral icterus. No injection or drainage. ENT: Nose without bleeding, purulent drainage or septal hematoma. Throat without erythema, tonsillar hypertrophy or exudate. Uvula midline. Airway patent. NECK: Trachea midline. No lymphadenopathy. Supple, nontender, no meningeal signs. CARDIOVASCULAR: Regular rate and rhythm. 3/6 systolic murmur appreciated. RESPIRATORY: Clear to auscultation. Breath sounds equal bilaterally. No wheezes , rales, or rhonchi. GASTROINTESTINAL: Abdomen soft, non-tender, nondistended. No hepato-splenomegaly , or palpable masses. No guarding. MUSCULOSKELETAL: Extremities without clubbing, cyanosis, or edema. No joint tenderness, effusion, or edema noted. No calf tenderness. NEUROLOGICAL: Awake and alert. Able to move all extremities. No focal neurologic findings appreciated. Normal speech. DTRs intact and 3+ bilateral upper and lower extremities. Medications and IVs Current Medications Medications (Trade) Dose Ordered Sig/[place] Route Start Time Stop Time Status Last Admin (NS Flush) 2 ml UNSCH PRN IV FLUSH 02/07/17 20:45 (Ativan Inj) 0.5 mg Q12H PRN IM 02/08/17 08:00 Hold (Tylenol) 650 mg Q4H PRN PO 02/08/17 08:00 (Milk Of Magnesia Liq) 30 ml DAILY PRN PO 02/08/17 08:00 02/10/17 02:12 (Mag-Al Plus Susp Liq) 30 ml Q6H PRN PO 02/08/17 08:00 (Habitrol 21 Mg Patch.24 Hr) 1 patch DAILY T-DERMAL 02/08/17 09:00 (risperDAL) 0.5 mg BID PO 02/08/17 09:00 02/08/17 21:18 (ZyPREXA INJ) 5 mg Q12H PRN IM 02/08/17 08:00 Hold Miscellaneous Information 1 DAILY T-DERMAL 02/08/17 09:00 (Vitamin B1) 100 mg DAILY PO 02/08/17 11:00 02/10/17 08:48 (Folate) 1 mg DAILY PO 02/08/17 11:00 02/10/17 08:48 (Prinivil) 5 mg DAILY PO 02/08/17 10:45 02/10/17 08:48 (Claritin) 10 mg DAILY PRN PO 02/08/17 10:45 (KCl) 10 meq DAILY PO 02/09/17 09:00 02/10/17 08:48 (Pravachol) 20 mg HS PO 02/08/17 21:00 02/09/17 22:01 (Isoptin) 120 mg DAILY PO 02/08/17 10:45 02/10/17 08:48 (Slo-Niacin) 500 mg HS PO 02/08/17 21:00 02/09/17 22:01 (Protonix) 20 mg DAILY PO 02/09/17 09:00 02/10/17 08:48 (Ativan) 1 mg Q4H PRN PO 02/08/17 13:15 Hold (Ativan Inj) 1 mg Q4H PRN IV PUSH 02/08/17 13:15 Hold (Ativan) 2 mg Q2H PRN PO 02/08/17 13:15 Hold (Ativan Inj) 2 mg Q2H PRN IV PUSH 02/08/17 13:15 Hold (Ativan Inj) 2 mg Q1H PRN IV PUSH 02/08/17 13:15 Hold (Ativan Inj) 2 mg Q15M PRN IV PUSH 02/08/17 13:15 Hold (Ativan) 0.5 mg Q12H PRN PO 02/08/17 13:30 Hold (Baciguent Oint) 1 applic DAILY TOPICAL 02/10/17 18:00 (PROzac) 10 mg DAILY PO 02/10/17 16:15 02/10/17 17:28 A/P Assessment and Plan 76-year-old male with a previous history of alcohol abuse who has been sober for the past 30 days who was admitted to the psychiatric unit under Haley act for delusional thoughts. Patient also has past medical history significant for hypertension COPD and chronic constipation. Hospital services have been requested for medical management of these. Delirium in patient with history of EtOH abuse - Head CT negative - Patient slightly hyponatremic on CMP, otherwise normal. B12 normal. - Chest x-ray reviewed by me does not show any cardiomegaly pulmonary disease. - UA without e/o UTI Hallucinations - HOLD Ativan - unlikely etoh withdrawal - Thiamine and Folic acid daily -Magnesium and phosphorus normal. -Neurology consulted - as per Dr malloy no need for further imaging or testing. -B12 elevated, RPR non reactive, TSH normal -Continue psychiatric care. Hypertension - Blood pressure initially uncontrolled with systolic blood pressure in the 160s. Patient started on lisinopril 5 mg by mouth daily. -Blood pressure much improved today. Cardiac murmur -2-D echocardiogram showed normal systolic function and EF of 55-60%. No wall motion abnormalities. Mild aortic stenosis. COPD - Duonebs prn. Seems to be stable. Hyponatremia - likely due to volume depletion/poor oral intake - encourage PO intake -Resolving. 135 today. Hypokalemia - Replaced with oral potassium. Potassium 3.8 on 02/09, continue to monitor BMP. Dyslipidemia -Continue statin -Fasting lipid profile within normal range. LDL 85. GERD -Continue PPI DVT prophylaxis - encourage ambulation Discharge Planning I will sign off, please reconsult if needed. Chinedu Harrison MD February 10, 2017 17:57
[2017-02-10] MEDS: BACITRACIN TOP OINT 15 GM TUBE TOPICAL SCH (18:00)
[2017-02-10 18:16] VITALS: BP 95/56; PULSE 68; RESP 17; TEMP 99; O2SAT 93
[2017-02-10] MEDS: NIACIN 500 MG EXTENDED RELEASE TAB PO SCH (21:04)
[2017-02-10] MEDS: PRAVASTATIN SOD 20 MG TAB PO SCH (21:04)
[2017-02-10] MEDS: risperiDONE 0.5 MG TAB PO SCH (21:04)
[2017-02-11 05:28] VITALS: BP 151/90; PULSE 76; RESP 17; TEMP 98.9; O2SAT 94
[2017-02-11] MEDS: FLUoxetine HCL 10 MG CAP PO SCH (09:00)
[2017-02-11] MEDS: BACITRACIN TOP OINT 15 GM TUBE TOPICAL SCH (09:00)
[2017-02-11] MEDS: FOLIC ACID 1 MG TAB PO SCH (09:00)
[2017-02-11] MEDS: REMOVE OLD PATCH T-DERMAL SCH (09:00)
[2017-02-11] MEDS: LISINOPRIL 5 MG TAB PO SCH (09:00)
[2017-02-11] MEDS: VERAPAMIL HCL 120 MG TAB PO SCH (09:00)
[2017-02-11] MEDS: NICOTINE 21 MG/24 HR PATCH T-DERMAL SCH (09:00)
[2017-02-11] MEDS: risperiDONE 0.5 MG TAB PO SCH ×2 (09:00→21:17)
[2017-02-11] MEDS: POTASSIUM CHLORIDE 10 MEQ CONTROLLED RELEASE TAB PO SCH (09:00)
[2017-02-11] MEDS: PANTOPRAZOLE SOD 20 MG DELAYED RELEASE TAB PO SCH (09:00)
[2017-02-11] MEDS: THIAMINE HCL 100 MG TAB PO SCH (09:00)
--- NOTE | 2017-02-11 09:35 | HHI.PYPN ---
Subjective Remarks Patient seen in [place] nurse Ambar, chart review, patient calm cooperative with me today patient Col[place], less focused on the voices are perceptual abnormalities that led to this admission. At this time patient is approved supportive [place] has capacity to sign voluntary. Will lift Haley act allow him to sign voluntary Review of Systems Except as stated in HPI: all other systems reviewed are Neg Objective Alert: Yes [place]: Person, Place (somewhat vague thought this might be a detox facility), Date, Situation (somewhat vague) Mood: Anxious, Calm, Other (vigilant) Affect: Euthymic, Labile Memory Intact: Comment (poor) Hallucinations: Other (denies) Delusions: Yes Delusion Type: Grandiose, Paranoid Suicidal: Ideation (denies) Homicidal: Ideation (denies) Insight/Judgment Poor Vitals/IOs Vital Signs Date Time Temp Pulse Resp B/P Pulse Ox O2 Delivery O2 Flow Rate FiO2 02/11/17 05:28 98.9 76 17 151/90 94 02/08/17 07:05 Room Air Intake and Output 02/10/17 02/10/17 02/11/17 08:00 16:00 00:00 Intake Total 1200 ml 1560 ml 720 ml Balance 1200 ml 1560 ml 720 ml Assessment & Plan Problem List: (1) Psychosis ICD Code: F29 Assessment & Plan Estimated LOS: days patient psychosis is diminishing, he should increase cooperation, compliant medications, somewhat less vigilant and irritable. Will lift Haley act allow patient to sign voluntary Justification for Cont. Inpt. 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
[2017-02-11 16:00] VITALS: BP 125/62; PULSE 65; RESP 18; TEMP 98.3; O2SAT 96
[2017-02-11] MEDS: NIACIN 500 MG EXTENDED RELEASE TAB PO SCH (21:17)
[2017-02-11] MEDS: PRAVASTATIN SOD 20 MG TAB PO SCH (21:17)
[2017-02-11] MEDS: MAGNESIUM HYDROXIDE SUSP 30 ML CUP PO PRN (21:25)
[2017-02-12 05:30] VITALS: BP 132/70; PULSE 66; RESP 16; TEMP 98
[2017-02-12] MEDS: FOLIC ACID 1 MG TAB PO SCH (08:53)
[2017-02-12] MEDS: THIAMINE HCL 100 MG TAB PO SCH (08:53)
[2017-02-12] MEDS: PANTOPRAZOLE SOD 20 MG DELAYED RELEASE TAB PO SCH (08:53)
[2017-02-12] MEDS: risperiDONE 0.5 MG TAB PO SCH ×2 (08:54→21:22)
[2017-02-12] MEDS: LISINOPRIL 5 MG TAB PO SCH (08:54)
[2017-02-12] MEDS: POTASSIUM CHLORIDE 10 MEQ CONTROLLED RELEASE TAB PO SCH (08:55)
[2017-02-12] MEDS: ASPIRIN 81 MG CHEW TAB CHEW SCH (08:55)
[2017-02-12] MEDS: VERAPAMIL HCL 120 MG TAB PO SCH (08:55)
[2017-02-12] MEDS: FLUoxetine HCL 10 MG CAP PO SCH (08:55)
[2017-02-12] MEDS: NICOTINE 21 MG/24 HR PATCH T-DERMAL SCH (09:00)
[2017-02-12] MEDS: BACITRACIN TOP OINT 15 GM TUBE TOPICAL SCH (09:00)
[2017-02-12] MEDS: REMOVE OLD PATCH T-DERMAL SCH (09:00)
--- NOTE | 2017-02-12 15:11 | HHI.PYPN ---
Subjective Remarks Patient seen in day room with nurse Ambar, chart reviewed, patient showing improved compliance with his medication. Patient is alert continues irritable somewhat vigilant mildly paranoid. However his no significant behavioral problems. Review of Systems Except as stated in HPI: all other systems reviewed are Neg Objective Alert: Yes [place]: Person, Place (somewhat vague thought this might be a detox facility), Date, Situation (somewhat vague) Mood: Anxious, Calm, Other (vigilant) Affect: Euthymic, Labile Memory Intact: Comment (poor) Hallucinations: Other (denies) Delusions: Yes Delusion Type: Grandiose, Paranoid Suicidal: Ideation (denies) Homicidal: Ideation (denies) Insight/Judgment Poor Vitals/IOs Vital Signs Date Time Temp Pulse Resp B/P Pulse Ox O2 Delivery O2 Flow Rate FiO2 02/12/17 05:30 98.0 66 16 132/70 02/11/17 16:00 96 02/08/17 07:05 Room Air Intake and Output 02/11/17 02/11/17 02/12/17 08:00 16:00 00:00 Intake Total 180 ml 780 ml 840 ml Balance 180 ml 780 ml 840 ml Assessment & Plan Problem List: (1) Psychosis ICD Code: F29 Assessment & Plan Estimated LOS: days patient continues irritable and psychotic, though to somewhat softer. Compliant medication. Justification for Cont. Inpt. 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
[2017-02-12 17:30] VITALS: BP 116/59; PULSE 61; RESP 17; TEMP 97.5; O2SAT 99
[2017-02-12] MEDS: NIACIN 500 MG EXTENDED RELEASE TAB PO SCH (21:22)
[2017-02-12] MEDS: PRAVASTATIN SOD 20 MG TAB PO SCH (21:22)
[2017-02-13 06:30] VITALS: BP 155/73; PULSE 72; RESP 17; TEMP 98.4; O2SAT 96
[2017-02-13] MEDS: NICOTINE 21 MG/24 HR PATCH T-DERMAL SCH (09:00)
[2017-02-13] MEDS: REMOVE OLD PATCH T-DERMAL SCH (09:00)
[2017-02-13] MEDS: BACITRACIN TOP OINT 15 GM TUBE TOPICAL SCH (09:34)
[2017-02-13] MEDS: FOLIC ACID 1 MG TAB PO SCH (09:35)
[2017-02-13] MEDS: risperiDONE 0.5 MG TAB PO SCH (09:35)
[2017-02-13] MEDS: POTASSIUM CHLORIDE 10 MEQ CONTROLLED RELEASE TAB PO SCH (09:35)
[2017-02-13] MEDS: THIAMINE HCL 100 MG TAB PO SCH (09:36)
[2017-02-13] MEDS: LISINOPRIL 5 MG TAB PO SCH (09:36)
[2017-02-13] MEDS: FLUoxetine HCL 10 MG CAP PO SCH (09:36)
[2017-02-13] MEDS: PANTOPRAZOLE SOD 20 MG DELAYED RELEASE TAB PO SCH (09:36)
[2017-02-13] MEDS: VERAPAMIL HCL 120 MG TAB PO SCH (09:36)
[2017-02-13] MEDS ORDERED: Folic Acid PO (11:58)
[2017-02-13] MEDS ORDERED: NIAC500 PO (11:58)
[2017-02-13] MEDS ORDERED: POTA-243 PO (11:58)
[2017-02-13] MEDS ORDERED: PRAV20TA PO (11:58)
[2017-02-13] MEDS ORDERED: RISP0.5T20 PO (11:58)
[2017-02-13] MEDS ORDERED: GNP100TA3 PO (11:58)
[2017-02-13] MEDS ORDERED: ASPI81CH25 CHEW (11:58)
[2017-02-13] MEDS ORDERED: VERA120 PO (11:58)
[2017-02-13] MEDS ORDERED: PANT20 PO (11:58)
[2017-02-13] MEDS ORDERED: FLUO10CA4 PO (11:58)
[2017-02-13] MEDS ORDERED: LISI-519 PO (11:58)
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
== END 2017-02-13 15:25 | disposition home or self-care (01) | DRG 885 ==
LOC: NEPC 20:19 → NEDA 02-08 08:00 → H250 02-08 08:30
PROVIDERS: ADMIT Psychiatry & Neurology Psychiatry; ATTEND Psychiatry & Neurology Psychiatry
DX: F29 Unspecified psychosis not due to a substance or known physiological condition (principal); E87.1 Hypo-osmolality and hyponatremia; J44.9 Chronic obstructive pulmonary disease, unspecified; K59.09 Other constipation; I10 Essential (primary) hypertension; F17.210 Nicotine dependence, cigarettes, uncomplicated; F10.10 Alcohol abuse, uncomplicated; K21.9 Gastro-esophageal reflux disease without esophagitis; E87.6 Hypokalemia; E78.5 Hyperlipidemia, unspecified
CPT/HCPCS: 70450; 71010; 80048; 80053; 80061; 80307; 81001; 82140; 82607; 83036; 83735; 84100; 84443; 85025; 86592; 93306; 96374; J2060

== ENCOUNTER 2017-02-25 10:43 | Inpatient (IN) | payer OTHER, MEDICARE ==
[~2017-02-25] VITALS: Ht 177.8 cm; Wt 78.5 kg
[~2017-02-25 10:43] MED LIST changes: +ASPI81CH25 CHEW; -ASPI81CH37 CHEW; +FLUO10CA4 PO; +Folic Acid PO; +GNP100TA3 PO; +NIAC500 PO; -NIAC500T5 PO; +PANT20 PO; +POTA-243 PO; -POTA10TA2 PO; +PRAV20TA PO; -PRAV20TA2 PO; +RISP0.5T20 PO; +VERA120 PO; -VERA120T3 PO
[2017-02-25 10:45] VITALS: BP 180/97; PULSE 87; RESP 18; TEMP 98.5; O2SAT 98
--- NOTE | 2017-02-25 11:27 | PD ---
HPI . Psychoses Chief Complaint: Psychiatric Symptoms Time Seen by Provider: 11:03 Travel History International Travel<30 days: No Contact w/Intl Traveler<30days: No Traveled to known affect area: No History of Present Illness HPI Patient presents to us voluntarily stating that he has urgent information to relate to the FBI. He states that he is fearful because of the information that he needs to get to the FBI. Further reports that he has been to the police and that the police have instructed him to come here with this information. The patient reports a recent hospitalization here for psychiatric reasons. He states that he was discharged on Prozac and Risperdal. He reports compliance with medications. However, the Prozac causes insomnia. The patient reports continued visual hallucinations particularly at night time while he is trying to sleep. The patient denies homicidal or suicidal ideation. PFSH Past Medical History Medical History: Denies Significant Hx Hx Anticoagulant Therapy: Yes (ASA) Cardiovascular Problems: Yes (HTN) COPD: Yes Diminished Hearing: No Hypertension: Yes Psychiatric: No Tetanus Vaccination: < 5 Years Influenza Vaccination: Yes ?: Not Past Surgical History Surgical History: No Previous Surgery Social History Alcohol Use: Yes (70 days sober goes to ) Tobacco Use: Yes (1/2 ppd) Substance Use: No Allergies-Medications (Allergen,Severity, Reaction): Coded Allergies: No Known Allergies (Unverified , 02/07/17) Reported Meds & Prescriptions Reported Meds & Active Scripts Active Calan (Verapamil HCl) 120 Mg Tab 120 Mg PO DAILY Gnp Vitamin B-1 (Thiamine HCl) 100 Mg Tab 100 Mg PO DAILY Risperdal (Risperidone) 0.5 Mg Tab 0.5 Mg PO BID Pravachol (Pravastatin) 20 Mg Tab 20 Mg PO HS Klor-Con 10 (Potassium Chloride) 10 Meq Tab 10 Meq PO DAILY Protonix (Pantoprazole Sodium) 20 Mg Tab 20 Mg PO DAILY Niaspan (Niacin) 500 Mg Tab 500 Mg PO HS Lisinopril 5 Mg Tab 5 Mg PO DAILY [Folic Acid] 1 MG Tab 1 Mg PO DAILY Fluoxetine (Pmdd) 10 Mg Cap 10 Mg PO DAILY Aspirin Low Strength (Aspirin) 81 Mg Chew 81 Mg CHEW EVERY OTHER DAY Reported Duoneb (Ipratropium-Albuterol Neb) 0.5-2.5 Mg/3 Ml Neb 1 Nebule INH Q8HR NEB PRN Loratadine 10 Mg Tab 10 Mg PO DAILY PRN Calcium Ascorbate 500 Mg Tab 500 Mg PO DAILY Review of Systems Except as stated in HPI: all other systems reviewed are Neg Psychiatric: Positive: Disorder of Thought, Other (insomnia, intrusive thoughts ), No: Suicidal Ideations, Substance Abuse (history of alcohol abuse but states that he has been sober for 70 days.), Homicidal Ideation Physical Exam Narrative GENERAL: Awake and alert and in no acute distress. SKIN: Warm and dry. HEAD: Atraumatic. Normocephalic. EYES: Pupils equal and round. NECK: Trachea midline. CARDIOVASCULAR: Regular rate and rhythm. RESPIRATORY: No accessory muscle use. MUSCULOSKELETAL: No obvious deformities. No edema. NEUROLOGICAL: Awake and alert. No obvious cranial nerve deficits. Motor grossly within normal limits. Normal speech. PSYCHIATRIC: Appropriate mood and affect. Presumably delusional believing that he has information for the FBI. Visual hallucinations. Data Data Last Documented VS Vital Signs Date Time Temp Pulse Resp B/P Pulse Ox O2 Delivery O2 Flow Rate FiO2 02/25/17 10:45 98.5 87 18 180/97 98 Room Air Orders Psych Screen (02/25/17 11:20) MDM Medical Decision Making Medical Screen Exam Complete: Yes Emergency Medical Condition: Yes Differential Diagnosis Differential diagnosis of psychosis includes but is not limited to schizophrenia , schizoaffective disorder, bipolar disorder, intoxication, substance abuse, dementia Narrative Course Patient presents here voluntarily with psychosis. The patient was admitted here for same. He had clearance labs done at that time. They will not be repeated today. This patient is medically clear for psychiatric evaluation. Diagnosis Primary Impression: Psychosis Qualified Code: F29 - Psychosis, unspecified psychosis type Condition: Stable Zoë Burger MD Feb 25, 2017 11:27
[2017-02-25 17:00] VITALS: BP 120/72; PULSE 79; RESP 20; TEMP 98.5; O2SAT 99
[2017-02-25 21:30] VITALS: BP 104/53; PULSE 68; RESP 16; TEMP 98.3; O2SAT 97
[2017-02-25] MEDS ORDERED: ALUMINUM/MAGNESIUM/SIMETH 30 ML CUP PO PRN (22:00)
[2017-02-25] MEDS ORDERED: ACETAMINOPHEN 325 MG TAB PO PRN (22:00)
[2017-02-25] MEDS ORDERED: RESP: ALBUTEROL 2.5 MG/IPRATROPIUM 0.5 MG NEB (PRN) INH (22:00)
[2017-02-25] MEDS ORDERED: LORazepam 0.5 MG TAB PO PRN (22:00)
[2017-02-25] MEDS ORDERED: LORazepam 2 MG/ML VIAL IM PRN (22:00)
[2017-02-25] MEDS ORDERED: diphenhydrAMINE HCL 50 MG/ML VIAL IM PRN (22:00)
[2017-02-25] MEDS ORDERED: diphenhydrAMINE HCL 50 MG CAP PO PRN (22:00)
[2017-02-25 22:15] VITALS: BP 135/60; PULSE 62; RESP 18; TEMP 98; O2SAT 97
[2017-02-26 05:00] VITALS: BP 132/62; PULSE 59; RESP 16; TEMP 97.4; O2SAT 97
[2017-02-26 07:37] LABS: AUTOMATED NEUTROPHIL # 5.9 TH/MM3 (1.8-7.7); BASOPHIL % 0.5 % (0.0-2.0); EOSINOPHIL # 0.1 TH/MM3 (0-0.4); EOSINOPHIL % 1.4 % (0.0-4.0); HEMO FLAGS DIFF FINAL; LYMPH % 14.6 % (9.0-44.0); LYMPHOCYTE # 1.1 TH/MM3 (1.0-4.8); MEAN CELL VOLUME 90.7 FL (80.0-100.0); MEAN CORPUSCULAR HEMOGLOBIN 29.7 PG (27.0-34.0); MEAN CORPUSCULAR HGB CONC 32.7 % (32.0-36.0); MONO % 7.3 % (0.0-8.0); NEUT % 76.2 % (16.0-70.0); PLATELET COUNT 324 TH/MM3 (150-450); RED BLOOD COUNT 4.41 MIL/MM3 (4.50-5.90); RED CELL DISTRIBUTION WIDTH 13.7 % (11.6-17.2); WHITE BLOOD COUNT 7.7 TH/MM3 (4.0-11.0)
[2017-02-26 08:19] LABS: ANION GAP 8 MEQ/L (5-15); AST (GOT) 24 U/L (15-37); BICARBONATE 28.9 MEQ/L (21.0-32.0); BLOOD UREA NITROGEN 5 MG/DL (7-18); CHLORIDE 95 MEQ/L (98-107); GLOMERULAR FILTRATION RATE 102 ML/MIN (>89); POTASSIUM 3.9 MEQ/L (3.5-5.1); SODIUM (NA) 132 MEQ/L (136-145)
[2017-02-26 08:22] LABS: ALKALINE PHOSPHATASE 104 U/L (45-117); ALT (GPT) 21 U/L (12-78); HDL CHOLESTEROL 68.6 MG/DL (40.0-60.0); LDL CHOLESTEROL 93 MG/DL (0-99); TOTAL BILIRUBIN ADULT 0.6 MG/DL (0.2-1.0)
[2017-02-26] MEDS ORDERED: ALUMINUM/MAGNESIUM/SIMETH 30 ML CUP PO PRN (08:30)
[2017-02-26] MEDS ORDERED: ACETAMINOPHEN 325 MG TAB PO PRN (08:30)
[2017-02-26] MEDS ORDERED: MAGNESIUM HYDROXIDE SUSP 30 ML CUP PO PRN ×2 (08:30→09:00)
[2017-02-26] MEDS: NICOTINE 21 MG/24 HR PATCH T-DERMAL SCH (09:00)
[2017-02-26] MEDS: REMOVE OLD PATCH T-DERMAL SCH (09:00)
[2017-02-26] MEDS ORDERED: LORATADINE 10 MG TAB PO PRN (09:00)
[2017-02-26] MEDS: VERAPAMIL HCL 120 MG TAB PO SCH (09:00)
[2017-02-26] MEDS ORDERED: risperiDONE 0.5 MG TAB PO SCH (09:00)
[2017-02-26] MEDS: THIAMINE HCL 100 MG TAB PO SCH (09:31)
[2017-02-26] MEDS: risperiDONE 1 MG TAB PO SCH ×2 (09:31→20:20)
[2017-02-26] MEDS: PANTOPRAZOLE SOD 20 MG DELAYED RELEASE TAB PO SCH (09:31)
[2017-02-26] MEDS: CALCIUM CARBONATE 1.25 GM (CA 500 MG) TAB PO SCH (09:31)
[2017-02-26] MEDS: FLUoxetine HCL 10 MG CAP PO SCH (09:31)
[2017-02-26] MEDS: LISINOPRIL 5 MG TAB PO SCH (09:31)
[2017-02-26] MEDS: POTASSIUM CHLORIDE 10 MEQ CONTROLLED RELEASE TAB PO SCH (09:32)
[2017-02-26] MEDS: FOLIC ACID 1 MG TAB PO SCH (09:32)
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
[2017-02-26 10:57] LABS: HEMOGLOBIN A1a 1.1 %; HEMOGLOBIN A1b 1.6 %; HEMOGLOBIN Ao 85.4 %; HEMOGLOBIN LA1C 1.9 %; HEMOGLOBIN P3 3.4 %
--- NOTE | 2017-02-26 13:57 | PD.CONS ---
HPI Service [facility] Hospitalists Consult Requested By Psychiatric services Reason for Consult Medical management Primary Care Physician Jacque Yousif MD Diagnoses: History of Present Illness Written by Jami Bond PA-C acting as scribe for Dr. Castaneda on 02/26/17 at 13 :34. This is a 76-year-old male with a past medical history significant for hypertension, COPD, chronic constipation and history of alcohol abuse who was recently discharged from this facility on 02/13/17 following treatment for psychosis was readmitted to the psychiatric unit on 02/26/17 after patient presented voluntarily to the ED department due to having urgent information that must be relayed to the [employer]. Hospitalist services have been consulted for medical management. Medical history is obtained from the patient himself as well as review of the prior medical record. Patient seen and examined today. Per review of psychiatry's note, patient will continue to stay voluntarily for medication adjustment just been recently discharged from their care. At present , patient denies any acute medical complaints. He has not had a drink in 70 days. He states that he feels well. Denies any fever, chills, cough, nausea, vomiting, shortness of breath, chest pain, abdominal pain, dysuria, diarrhea or constipation. Review of Systems Except as stated in HPI: all other systems reviewed are Neg Past Family Social History Allergies: Coded Allergies: No Known Allergies (Unverified , 02/07/17) Past Medical History Hypertension History of GI bleed secondary to alcohol abuse Chronic constipation COPD Grade 1 diastolic dysfunction by Echo done 02/09/17 Past Surgical History Patient's only surgical procedure has been a previous EGD and colonoscopy due to workup for GI bleed in 1991 Reported Medications Verapamil (Calan)120 Mg Exw685 Mg PO DAILY #30 TAB Ref 0 Prov:Javon Lara MD 02/13/17 Thiamine HCl (Gnp Vitamin B-1)100 Mg Zbk230 Mg PO DAILY #30 TAB Ref 0 Prov:Javon Lara MD 02/13/17 Pravastatin (Pravachol)20 Mg Tab20 Mg PO HS #30 TAB Ref 0 Prov:Javon Lara MD 02/13/17 Potassium Chloride ER (Klor-Con 10)10 Meq Tab10 Meq PO DAILY #30 TAB Ref 0 Prov:Javon Lara MD 02/13/17 Pantoprazole (Protonix)20 Mg Tab20 Mg PO DAILY #30 TAB Ref 0 Prov:Javon Lara MD 02/13/17 Niacin ER (Niaspan)500 Mg Wsn778 Mg PO HS #30 TAB Ref 0 Prov:Javon Lara MD 02/13/17 Lisinopril 5 Mg Tab5 Mg PO DAILY #30 TAB Ref 0 Prov:Javon Lara MD 02/13/17 [Folic Acid] (Folate)1 MG TAB No Conflict Check1 Mg PO DAILY #30 TAB Ref 0 Prov:Javon Lara MD 02/13/17 Fluoxetine (Pmdd) 10 Mg Cap10 Mg PO DAILY #30 CAP Ref 0 Prov:Javon Lara MD 02/13/17 Aspirin (Aspirin Low Strength)81 Mg Chew81 Mg CHEW EVERY OTHER DAY #30 EA Ref 0 Prov:Javon Lara MD 02/13/17 Ipratropium-Albuterol Neb (Duoneb)0.5-2.5 Mg/3 Ml Neb1 Nebule INH Q8HR NEB PRN ( SHORTNESS OF BREATH) #90 NEBULE Ref 0 01/02/17 Loratadine 10 Mg Tab10 Mg PO DAILY PRN (ALLERGIES) Ref 0 01/02/17 Calcium Ascorbate 500 Mg Pnj522 Mg PO DAILY Ref 0 01/02/17 Active Ordered Medications Current Medications Medications (Trade) Dose Ordered Sig/Helena Route Start Time Stop Time Status Last Admin (PROzac) 10 mg DAILY PO 02/26/17 09:00 02/26/17 09:31 (Prinivil) 5 mg DAILY PO 02/26/17 09:00 02/26/17 09:31 (Claritin) 10 mg DAILY PRN PO 02/26/17 09:00 (Slo-Niacin) 500 mg HS PO 02/26/17 21:00 (Protonix) 20 mg DAILY PO 02/26/17 09:00 02/26/17 09:31 (KCl) 10 meq DAILY PO 02/26/17 09:00 02/26/17 09:32 (Pravachol) 20 mg HS PO 02/26/17 21:00 (Vitamin B1) 100 mg DAILY PO 02/26/17 09:00 02/26/17 09:31 (Isoptin) 120 mg DAILY PO 02/26/17 09:00 02/26/17 09:00 (Oscal) 500 mg DAILY PO 02/26/17 09:00 02/26/17 09:31 (Folate) 1 mg DAILY PO 02/26/17 09:00 02/26/17 09:32 (Ativan) 0.5 mg Q12H PRN PO 02/25/17 22:00 (Ativan Inj) 0.5 mg Q12H PRN IM 02/25/17 22:00 (Habitrol 21 Mg Patch.24 Hr) 1 patch DAILY T-DERMAL 02/26/17 09:00 Miscellaneous Information 1 DAILY T-DERMAL 02/26/17 09:00 (Melatonin) 5 mg HS PRN PO 02/26/17 21:00 (risperDAL) 1 mg BID PO 02/26/17 09:00 02/26/17 09:31 (Tylenol) 650 mg Q4H PRN PO 02/26/17 08:30 (Milk Of Magnesia Liq) 30 ml DAILY PRN PO 02/26/17 08:30 (Mag-Al Plus Susp Liq) 30 ml Q6H PRN PO 02/26/17 08:30 Family History Grandfather, TB Patient denies any family history of Parkinson's, coronary artery disease or cancers Social History Patient reports history tobacco use but quit smoking 3 weeks ago. Patient has a history of alcohol abuse but states he's been sober for the past 70 days. Patient denies any illicit drug use. Physical Exam Vital Signs Vital Signs Date Time Temp Pulse Resp B/P Pulse Ox O2 Delivery O2 Flow Rate FiO2 02/26/17 05:00 97.4 59 16 132/62 97 02/25/17 22:15 98.0 62 18 135/60 97 02/25/17 21:30 98.3 68 16 104/53 97 Room Air 02/25/17 17:00 98.5 79 20 120/72 99 Room Air Physical Exam GENERAL: This is a well-nourished, well-developed patient, in no apparent distress. Pleasant and cooperative. Awake and alert. SKIN: No rashes, ecchymoses or lesions. Cool and dry. HEAD: Atraumatic. Normocephalic. No temporal or scalp tenderness. EYES: Pupils equal round and reactive. Extraocular motions intact. No scleral icterus. No injection or drainage. ENT: Nose without bleeding, purulent drainage or septal hematoma. Throat without erythema, tonsillar hypertrophy or exudate. Uvula midline. Airway patent. NECK: Trachea midline. Supple, nontender, no meningeal signs. CARDIOVASCULAR: Regular rate and rhythm without murmurs, gallops, or rubs. RESPIRATORY: Clear to auscultation. Breath sounds equal bilaterally. No wheezes , rales, or rhonchi. GASTROINTESTINAL: Abdomen soft, non-tender, nondistended. No hepato-splenomegaly , or palpable masses. No guarding. MUSCULOSKELETAL: Extremities without clubbing, cyanosis, or edema. No joint tenderness, effusion, or edema noted. No calf tenderness. NEUROLOGICAL: Awake and alert. Able to move all extremities. No focal neurologic findings appreciated. Normal speech. Laboratory Laboratory Tests Test 02/26/17 07:14 White Blood Count 7.7 Red Blood Count 4.41 Hemoglobin 13.1 Hematocrit 40.0 Mean Corpuscular Volume 90.7 Mean Corpuscular Hemoglobin 29.7 Mean Corpuscular Hemoglobin 32.7 Concent Red Cell Distribution Width 13.7 Platelet Count 324 Mean Platelet Volume 8.9 Neutrophils (%) (Auto) 76.2 Lymphocytes (%) (Auto) 14.6 Monocytes (%) (Auto) 7.3 Eosinophils (%) (Auto) 1.4 Basophils (%) (Auto) 0.5 Neutrophils # (Auto) 5.9 Lymphocytes # (Auto) 1.1 Monocytes # (Auto) 0.6 Eosinophils # (Auto) 0.1 Basophils # (Auto) 0.0 CBC Comment DIFF FINAL Differential Comment Sodium Level 132 Potassium Level 3.9 Chloride Level 95 Carbon Dioxide Level 28.9 Anion Gap 8 Blood Urea Nitrogen 5 Creatinine 0.75 Estimat Glomerular Filtration 102 Rate Random Glucose 104 Hemoglobin A1c 6.0 Calcium Level 8.8 Total Bilirubin 0.6 Aspartate Amino Transf 24 (AST/SGOT) Alanine Aminotransferase 21 (ALT/SGPT) Alkaline Phosphatase 104 Total Protein 7.1 Albumin 3.3 Triglycerides Level 59 Cholesterol Level 173 LDL Cholesterol 93 HDL Cholesterol 68.6 Cholesterol/HDL Ratio 2.52 Result Diagram: 02/26/17 0714 02/26/17 0714 Assessment and Plan Assessment and Plan 76-year-old male with a past medical history significant for hypertension, COPD , chronic constipation and history of alcohol abuse who was recently discharged from this facility on 02/13/17 following treatment for psychosis was readmitted to the psychiatric unit on 02/26/17 after patient presented voluntarily to the ED department due to having urgent information that must be relayed to the [employer]. Hospitalist services have been consulted for medical management. Paranoid type delusional disorder - Management per psychiatric team - Neurology consulted by primary team. Will follow up on their assessment and recommendations. - TSH 1.700 on 02/07/17 Hypertension - Blood pressure adequately controlled at present - Continue antihypertensive regimen - Monitor blood pressure and adjust treatment as indicated Hyponatremia - Mild - Suspect poor po intake - Encourage fluid intake - No further intervention at this time. Please reconsult if sodium drops below 128. Dyslipidemia - Continue statin and niacin therapy COPD - Not in acute exacerbation - Recently quit smoking 3 weeks ago - Duonebs prn - O2 sats 97% on RA - monitor respiratory status Grade 1 diastolic dysfunction - Not in acute exacerbation - Echocardiogram done 02/09/17 shows EF 55-60%, normal wall motion and abnormal left ventricular relaxation - Monitor for any signs of decompensation History of alcohol abuse - Patient has been sober for the past 70 days per his report - Continue thiamine and folate Chronic constipation - MOM prn - Monitor for BMP DVT prophylaxis - Patient is ambulatory Patient appears medically stable from a hospitalist standpoint. We'll sign off for now. Please reconsult if needed. Recommend follow-up sodium in 3 days- consider reconsultation if sodium level falls below 128. This note was transcribed by ary Bond PA-C. I, Dr. Clint Castaneda personally performed the history, physical exam, and medical decision making; and confirmed the accuracy of the information in the transcribed note. Authenticated by Dr. Clint Castaneda on 02/26/17 at 15:05. Jami Bond Feb 26, 2017 13:57 Tanvir Castaneda DO Feb 26, 2017 15:05
--- NOTE | 2017-02-26 16:48 | MB ---
cc: JASON LI MD DATE OF CONSULTATION 02/26/17 HISTORY OF PRESENT ILLNESS Ms. Silva is seen in neurologic consultation. I remember him as I saw him some 3-4 weeks ago when he was also in the psychiatric unit with somewhat similar problems, delusions. He was discharged and apparently living home by himself. No family around. He comes back and apparently he drove himself here because of persistence of delusions. He thinks some of this is real and some of it was just a vivid dream. He describes that people come and they have the keys for his house, they change things, they steal things. As in the past, he said that people had the keys to his car and he has no control of this. They do not come in when he is in the house. He thinks this is very real. The other imaginary situations are dreams that sometimes seem to become very vivid. He was discharged on small doses of psychotropic medications. Specifically he was on Prozac 10 mg a day and I believe he was also on Risperdal 0.5 mg twice a day. He is on cholesterol and vitamins including thiamine. PHYSICAL EXAMINATION The exam shows the patient to be alert, pleasant and he knew the date. He knows the place and has some insight but unable to give me more significant details about his current medications. He is vague when he talks about any family or any neighbors. He could not come up with more appropriate description of major events in the news and he says he reads the paper, watches television. He did remember what he ate for lunch and breakfast today and this seems appropriate. He was following commands well. Ocular movements and visual rivera full. ASSESSMENT Delusional disorder. 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 In the previous visit, there was some question about his delusions being related to alcohol withdrawal. He says he has not had any alcohol for nearly three months. I would continue with the thiamine and antipsychotic medications accordingly. I will also start him on a small dose of Namenda. Otherwise, outpatient neurological followup in a couple of weeks. He did have a CT brain on his recent admission that was unremarkable. Labs from recent admission also noted. Thank you for asking us to assist in his care. Please schedule him for follow-up appointment after discharge, approximately two weeks from discharge. MD MELODIE Pearson/ /2:27 PM /4:34 PM
[2017-02-26 18:33] VITALS: BP 127/79; PULSE 71; RESP 19; TEMP 96.9; O2SAT 96
[2017-02-26] MEDS ORDERED: MELATONIN 5 MG TAB PO PRN (21:00)
[2017-02-26] MEDS ORDERED: PRAVASTATIN SOD 20 MG TAB PO SCH (21:00)
[2017-02-26] MEDS ORDERED: NIACIN 500 MG EXTENDED RELEASE TAB PO SCH (21:00)
[2017-02-27 06:17] VITALS: BP 156/71; PULSE 58; RESP 16; TEMP 96.5; O2SAT 100
[2017-02-27] MEDS ORDERED: MEMANTINE HCL 5 MG TAB PO SCH (09:00)
[2017-02-27] MEDS ORDERED: ASPIRIN 81 MG CHEW TAB CHEW SCH (09:00)
[2017-02-27] MEDS: NICOTINE 21 MG/24 HR PATCH T-DERMAL SCH (09:13)
[2017-02-27] MEDS: REMOVE OLD PATCH T-DERMAL SCH (09:13)
[2017-02-27] MEDS: FOLIC ACID 1 MG TAB PO SCH (09:16)
[2017-02-27] MEDS: VERAPAMIL HCL 120 MG TAB PO SCH (09:16)
[2017-02-27] MEDS: POTASSIUM CHLORIDE 10 MEQ CONTROLLED RELEASE TAB PO SCH (09:17)
[2017-02-27] MEDS: CALCIUM CARBONATE 1.25 GM (CA 500 MG) TAB PO SCH (09:17)
[2017-02-27] MEDS: LISINOPRIL 5 MG TAB PO SCH (09:18)
[2017-02-27] MEDS: PANTOPRAZOLE SOD 20 MG DELAYED RELEASE TAB PO SCH (09:18)
[2017-02-27] MEDS: FLUoxetine HCL 10 MG CAP PO SCH (09:18)
[2017-02-27] MEDS: risperiDONE 1 MG TAB PO SCH (09:19)
[2017-02-27] MEDS: THIAMINE HCL 100 MG TAB PO SCH (09:19)
[2017-02-27] MEDS ORDERED: FLUO10CA4 PO (10:56)
[2017-02-27] MEDS ORDERED: NAME5TAB2 PO (10:56)
[2017-02-27] MEDS ORDERED: RISP1 PO (10:56)
--- NOTE | 2017-02-27 11:01 | HHI.DS ---
Psychiatry Discharge Summary Inpatient Psychiatric care?: Yes Advance Directive: Yes Mental Health AdvanceDirective: No (patient declined) Name and Number: patient declined Health Care Proxy: No (patient declined) Name and Phone Number: patient declined Admission Admission Date Feb 25, 2017 at 21:03 Admission Diagnosis: (1) Paranoid type delusional disorder ICD Code: F22 Brief History Patient is a 76-year-old white male who comes here voluntarily complaining of people breaking into his home moving things around stealing things, breaking into his car stealing his car keys and is okay his. He states he never has any auditory or visual sensations related to them. He does not know why they are there. Though it does anger him and causing some concern. Of interest during a screening in the ED he also stated he has attempted to call the [employer] because he knows what has happened to Fadi selby. He was referred to the mental health unit to discuss those issues also. Though today he says that was just his imagination memory should forget about it. Of interest the patient was seen by me 521 through 02/15/17 under visit [phone], discharged on Prozac and Respinol. Patient is a does get his care through the [place] clinic in [facility]. He lives independently alone has a daughter who lives out of state who he states will be visiting him in April with HER-2 teenagers. Patient states she has not had a drink in 70 days. Denies other drug use. Denies suicidality homicidality voices or visions Patient is willing to stay voluntary basis to get his medication adjusted. He is also have a neurologist consult was to determine if this any dementing process started. We will continue his Prozac at 10 mg the morning increase his Respinol from 0.5 twice a day to 1 mg twice a day. Hopefully this to be a fairly short stay and agreed to the community follow-up for the [place] clinic in [facility] Tobacco Use In Past 30 Days: 5 or More Cigarettes/Day Alcohol Use: Never Hospital Course Patient seen today in day room with nurse Raymond, patient compliant medications didn't sleep well, appetite is good, patient no behavioral problems. Patient now denies suicidality homicidality voices or visions. His delusions have markedly diminished. Says he is feeling quite well now that his back on his medication. Patient did sign an ROR. At the present time patient does not meet criteria for continued involuntary inpatient hospitalization. Will be discharged today with Rx 1 month with his prescribed psychiatric prescription medication to follow-up the [place] clinic Results Blood Pressure 156 / 71 Vital Signs Date Time Temp Pulse Resp B/P Pulse Ox O2 Delivery O2 Flow Rate FiO2 02/27/17 06:17 96.5 58 16 156/71 100 02/25/17 21:30 Room Air Laboratory Tests Test 02/26/17 07:14 Red Blood Count 4.41 MIL/MM3 (4.50-5.90) Neutrophils (%) (Auto) 76.2 % (16.0-70.0) Sodium Level 132 MEQ/L (136-145) Chloride Level 95 MEQ/L (98-107) Blood Urea Nitrogen 5 MG/DL (7-18) Albumin 3.3 GM/DL (3.4-5.0) HDL Cholesterol 68.6 MG/DL (40.0-60.0) Laboratory Results Test 02/26/17 07:14 Hemoglobin A1c 6.0 % (4.3-6.0) Triglycerides Level 59 MG/DL (42-150) Cholesterol Level 173 MG/DL (120-200) LDL Cholesterol 93 MG/DL (0-99) HDL Cholesterol 68.6 MG/DL (40.0-60.0) Summary of Procedures None done Pending results at discharge: No Medications # of Antipsychotic meds at D/C: 1 Approp Antipsych med options 1 - Minimum of three failed multiple trials of monotherapy. 2 - Documented plan to taper to monotherapy due to previous use of multiple meds OR cross-taper in progress at D/C. 3 - Documentation of augmentation of Clozapine. 4 - Justification other than those listed in allowable values 1-3, document here : Discharge Discharge Date: Feb 27, 2017 Discharge Diagnosis: (1) Paranoid type delusional disorder Diagnosis: Principal ICD Code: F22 Mental Status Exam at Disch Alert oriented white male calm cooperative. He has normal active. Mood is euthymic, good range intensity of his affect. Speech rate and rhythm within normal limits there are no formal thought disorders. There are no auditory or visual hallucinations noted. His paranoid delusions have essentially resolved. Insight and judgment is poor to fair cognition grossly intact Pt Condition on Discharge: Stable Discharge Disposition: Discharge Home Discharge Instructions Diet Instructions: As Tolerated, No Restrictions Activities you can perform: Regular-No Restrictions Scheduled Appointment: [place] Appointment Date: Feb 27, 2017 Appointment Time: 2:00pm Discharge Time > 30 minutes Discharge/Advance Care Plan Health Problems: (1) Paranoid type delusional disorder Goals to promote your health * To prevent worsening of your condition and complications * To maintain your health at the optimal level Directions to meet your goals Take your medications as prescribed Follow your dietary instruction Follow activity as directed Keep your appointments as scheduled Take your immunizations and boosters as scheduled If your symptoms worsen call your PCP, if no PCP go to Urgent Care Center or Emergency Room For 13/04 questions related to your inpatient stay or results of tests pending at discharge, please contact Dr. Javon Lara at Smoking is Dangerous to Your Health. Avoid second hand smoking Javon Lara MD Feb 27, 2017 11:01
== END 2017-02-27 12:35 | disposition home or self-care (01) | DRG 885 ==
LOC: NEPD 10:43 → NEDA 21:03 → H250 22:13
PROVIDERS: ADMIT Psychiatry & Neurology Psychiatry; ATTEND Psychiatry & Neurology Psychiatry
DX: F22 Delusional disorders (principal); F03.90 Unspecified dementia, unspecified severity, without behavioral disturbance, psychotic disturbance, mood disturbance, and anxiety; J44.9 Chronic obstructive pulmonary disease, unspecified; E87.1 Hypo-osmolality and hyponatremia; E78.5 Hyperlipidemia, unspecified; I10 Essential (primary) hypertension; K59.09 Other constipation; Z79.899 Other long term (current) drug therapy; Z87.891 Personal history of nicotine dependence
CPT/HCPCS: 80053; 80061; 83036; 85025

== ENCOUNTER 2018-06-23 18:59 | Inpatient (IN) ==
[2018-06-23] MEDS ORDERED: Vancomycin Inj 1,000 MG in Sodium Chlor 0.9% Inj 250 ML IV.SIG ONE ×2 (19:13→23:00)
--- NOTE | 2018-06-23 19:31 | ED ---
HPI General Chief Complaint: Fever Stated Complaint: fever/evac Time Seen by Provider: 06/23/18 19:13 Source: patient and EMS Mode of arrival: EMS Limitations: no limitations History of Present Illness HPI Narrative: 77-year-old male presents to the emergency department from home by a reportedly found him altered with very high fever and a warm household. According to the global sales manager report as the patient is unable to provide all the information and the hospice nurse is not present the patient was recently released from rehab after having a left hip fracture repair to his home. Patient is a hospice patient for history of end-stage COPD. Nurse was checking on the patient and identified the house to have a temperature of 92 F and the hospice nurse reportedly checked the patient's temperature that was recorded at 107 F the hospice nurse opened up the house to ventilate the environment and gave the patient 1 g of acetaminophen. Upon EMS arrival the patient was still somewhat altered although reportedly improved and was identified to have a temperature of 105 F by temporal scan. Patient was identified to have sinus tachycardia with right bundle branch block by EKG per EMS. No known history of right bundle branch block. Patient had room air O2 saturation reportedly of 87 % and was placed on 4 L/min nasal cannula with O2 saturation improvement to 97% . Ice packs were placed at patient's groin for cooling. Patient is on Lovenox prophylaxis. Patient here complains of left hip pain but denies chest pain or shortness of breath or abdominal pain. Patient reports that he lives by himself and is too weak to get up and to care for himself. Patient was found in a stool and urine saturated depends diaper. MD complaint: Reports fever Onset (ago): unknown Temperature Source: oral and other (temporal scan) Context: Reports recent procedure (left THR); Denies sick contacts and recent travel Associated symptoms: Reports other (left hip pain per patient); Denies chills, headache, cough, chest pain, shortness of breath, abdominal pain, vomiting and diarrhea Relieving factors: other (unknown per patient) Treatments prior to arrival fever: Reports acetaminophen and other (some evaporative cooling) Related Data Home Medications Medication Instructions Recorded Confirmed docusate sodium [Colace] 100 mg PO BID 06/15/18 06/23/18 enoxaparin [Lovenox] 30 mg SUBCUT Q12H 06/15/18 06/23/18 lisinopril 5 mg PO DAILY 06/15/18 06/23/18 miconazole nitrate [Akbar 1 applic TOPICAL TID 06/15/18 06/23/18 Antifungal] omeprazole 20 mg PO DAILY 06/15/18 06/23/18 phenazopyridine 200 mg PO TID 06/15/18 06/23/18 pravastatin 20 mg PO DAILY 06/15/18 06/23/18 sertraline [Zoloft] 25 mg PO DAILY 06/15/18 06/23/18 tamsulosin [Flomax] 0.4 mg PO DAILY 06/15/18 06/23/18 Previous Rx's Medication Instructions Recorded cephalexin [Keflex] 500 mg PO Q12H 10 Days #20 cap 06/15/18 Allergies Allergy/AdvReac Type Severity Reaction Status Date / Time No Known Allergies Allergy Verified 06/23/18 19:07 Review of Systems ROS: all other systems reviewed are negative FOR[facility]LY [facility] Medical History Medical History COPD (chronic obstructive pulmonary disease) (Acute) Depression (Acute) GERD (gastroesophageal reflux disease) (Acute) HTN (hypertension) (Acute) Hyperlipidemia (Acute) Fracture of left femur (Chronic) Social History Social History Substance History: No History of Abuse Smoking Status: Never smoker Tobacco Type: Cigarettes How Often Do You Have a Drink Containing Alcohol: Never Recent Travel in [facility] within the Last 8 Weeks: No Recent Out of Country Travel within the Last 8 Weeks: No Exam Narrative Exam Narrative: GENERAL: Well-nourished, well-developed patient. Elderly male receiving supplemental oxygen by 4 L/min nasal cannula awake oriented to name and some events follows commands normal speech and no respiratory distress. SKIN: Focused skin assessment warm/dry. Warm flushed skin. No vesicles no pustules no petechia. Various staged ecchymoses. HEAD: Normocephalic. EYES: No scleral icterus. No injection or drainage. NECK: Supple, trachea midline. No JVD or lymphadenopathy. CARDIOVASCULAR: Increased regular rate and rhythm without murmurs, gallops, or rubs. Radial and dorsalis pedis pulses 2+ to palpation. RESPIRATORY: Breath sounds equal bilaterally. No accessory muscle use. GASTROINTESTINAL: Abdomen soft, non-tender, nondistended. : Circumcised male with confluent erythema in the skin folds with erythematous satellite lesions. MUSCULOSKELETAL: No cyanosis, or edema. BACK: Nontender without obvious deformity. No CVA tenderness. Course Initial Documented Vital Signs Pulse Rate 120 H 06/23/18 19:01 Respiratory Rate 20 06/23/18 19:01 Blood Pressure 134/66 06/23/18 19:01 Pulse Oximetry 97 06/23/18 19:01 Last Documented Vital Signs Temperature 104.7 F H 06/23/18 19:30 Pulse Rate 98 H 06/23/18 20:31 Respiratory Rate 20 06/23/18 20:31 Blood Pressure 126/64 06/23/18 20:31 Pulse Oximetry 97 06/23/18 20:31 Medical Decision Making MDM Narrative Medical decision making narrative: 77-year-old male presents to the emergency department by EMS transport from home where he was noted to have marked elevation of temperature associated with overheated environment and subsequent hyperthermia hyperpyrexia. Patient found in stool and urine soaked diaper with initially altered mentation per EMS report that has improved in transit. Patient presented with temperature elevation here as well as report of hyperthermia had been administered by hospice nurse acetaminophen 1 g and upon arrival here clothing removed ice packs applied to axilla and groin and evaporative cooling measures initiated. Patient continued on supplemental oxygen decreased from 4 L/min nasal cannula 2 L/min nasal cannula. Cultures obtained IV fluids administered. Imaging study ordered specimens collected and sent for resulting. Chest x-ray identified to have right middle lobe infiltrate appears to be new possibly consistent with pneumonia otherwise unremarkable for acute process CBC is automated differential left shift 87% neutrophils normal total white cell count hemoglobin stable metabolic panel grossly within normal limits with normal range bicarb and BUN and creatinine mild hypocalcemia; lactic acid is not elevated at 1.0. Patient is identified to have elevated troponin I of 0.44 no acute injury pattern identified on EKG will require trending of troponin I. Patient is on Lovenox prophylaxis/chronically. Urinalysis pending. Heart rate has decreased to 98 with IV fluid hydration and evaporative cooling measures repeat temperature pending Repeat temperature patient is afebrile urinalysis shows white blood cells and bacteria from cath specimen cultures indicated; in view of elevated troponin I with no previous elevation of troponin I or evaluation from a cardiac standpoint the medical record patient will be started on heparinization case has been discussed with medicine service will admit to their service with heparinization and also plan to consult cardiology. Medical Screen Exam Complete: Yes Emergency Medical Condition: Yes Differential Diagnosis Differential Diagnosis: Hyperthermia, dehydration, UTI, pneumonia, sirs/sepsis, renal failure, ACS, PE, exacerbation COPD, arrhythmia, electrolyte disturbance Medical Records Medical records reviewed: Yes I reviewed the patient's medical records. 2016 mental health evaluation; 06/15/18 evaluated for hyponatremia identified to be chronic chronic hypocalcemia COPD depression GERD hypertension dyslipidemia and recent repair of fracture to left femur no record of fracture repair through the [facility] system by review of electronic medical record patient was discharged with prescription for cephalexin; urine culture greater than 100,000 [place] of Mixed [place] felt to Be Consistent with Contaminant. Lab Data Result diagrams: 06/23/18 19:30 06/23/18 19:30 Lab Results 06/23/18 06/23/18 06/23/18 Range/Units 19:30 19:30 19:30 WBC 6.6 (4.0-11.0) th/mm3 RBC 3.72 L (4.50-5.90) mil/mm3 Hgb 11.2 L (13.0-17.0) gm/dL Hct 32.9 L (39.0-51.0) % MCV 88.5 (80.0-100.0) fL MCH 30.1 (27.0-34.0) pg MCHC 34.1 (32.0-36.0) % RDW 14.6 (11.6-17.2) % Plt Count 260 (150-450) th/mm3 MPV 7.9 (7.0-11.0) fL Neut % (Auto) 87.3 H (16.0-70.0) % Lymph % (Auto) 6.8 L (9.0-44.0) % [place] % (Auto) 5.4 (0.0-8.0) % Eos % (Auto) 0.1 (0.0-4.0) % Baso % (Auto) 0.4 (0.0-2.0) % Neut # (Auto) 5.8 (1.8-7.7) th/mm3 Lymph # (Auto) 0.4 L (1.0-4.8) th/mm3 [place] # (Auto) 0.4 (0.0-0.9) th/mm3 Eos # (Auto) 0.0 (0.0-0.4) th/mm3 Baso # (Auto) 0.0 (0.0-0.2) th/mm3 WBC Differential . Differential Comment Auto diff final PT 11.3 (9.8-11.6) sec INR 1.1 Ratio APTT (24.3-30.1) sec Puncture Site Patient Temperature O2 Saturation (90-100) % ABG pH (7.380-7.420) ABG pCO2 (38-42) mmHg ABG pO2 (61-120) mmHg ABG HCO3 (22-26) mmol/L ABG O2 Content (12.0-20.0) Vol % ABG Base Excess (-2-2) mmol/L ABG Methemoglobin (0-2) % Aram Test Hemoglobin (12.0-16.0) G/DL Carboxyhemoglobin (0-4) % O2 Delivery Device Liter Flow L/M Critical Value Sodium 131 L (136-145) meq/L Potassium 3.9 (3.5-5.1) meq/L Chloride 95 L (98-107) meq/L Carbon Dioxide 25.5 (21.0-32.0) meq/L Anion Gap 11 (5-15) meq/L BUN 18 (7-18) mg/dL Creatinine 0.79 (0.60-1.30) mg/dL Estimated GFR Greater than 89 (>89) mL/min Random Glucose 132 H (74-106) mg/dL Lactic Acid (0.4-2.0) mmol/L Calcium 7.6 L (8.5-10.1) mg/dL Total Bilirubin 0.5 (0.2-1.0) mg/dL AST 60 H (15-37) U/L ALT 36 (12-78) U/L Alkaline Phosphatase 156 H (45-117) U/L Troponin I 0.44 H (0.02-0.05) ng/mL Total Protein 6.3 L (6.4-8.2) g/dL Albumin 2.5 L (3.4-5.0) g/dL Lipase 65 L (73-393) U/L Urine Color (Yellw/Straw) Urine Clarity (Clear) Urine pH (5.0-8.5) Ur Specific [place] (1.002-1.035) Urine Protein (Neg-Trace) mg/dL Urine Glucose (UA) (Negative) mg/dL Urine Ketones (Negative) mg/dL Urine Occult Blood (Negative) Urine Nitrate (Negative) Urine Bilirubin (Negative) Urine Urobilinogen (Less than 2) mg/dL Ur Leukocyte Esterase (Negative) Urine RBC (0-3) /hpf Urine WBC (0-5) /hpf Amorphous Sediment (None) /hpf Urine Bacteria (None) /hpf Urine Mucus (Occasional) /lpf Micro UA Comment Ur Microscopic Review Urine Culture Comments 06/23/18 06/23/18 06/23/18 Range/Units 19:30 19:30 19:43 WBC (4.0-11.0) th/mm3 RBC (4.50-5.90) mil/mm3 Hgb (13.0-17.0) gm/dL Hct (39.0-51.0) % MCV (80.0-100.0) fL MCH (27.0-34.0) pg MCHC (32.0-36.0) % RDW (11.6-17.2) % Plt Count (150-450) th/mm3 MPV (7.0-11.0) fL Neut % (Auto) (16.0-70.0) % Lymph % (Auto) (9.0-44.0) % [place] % (Auto) (0.0-8.0) % Eos % (Auto) (0.0-4.0) % Baso % (Auto) (0.0-2.0) % Neut # (Auto) (1.8-7.7) th/mm3 Lymph # (Auto) (1.0-4.8) th/mm3 [place] # (Auto) (0.0-0.9) th/mm3 Eos # (Auto) (0.0-0.4) th/mm3 Baso # (Auto) (0.0-0.2) th/mm3 WBC Differential Differential Comment PT (9.8-11.6) sec INR Ratio APTT 24.5 (24.3-30.1) sec Puncture Site Patient Temperature O2 Saturation (90-100) % ABG pH (7.380-7.420) ABG pCO2 (38-42) mmHg ABG pO2 (61-120) mmHg ABG HCO3 (22-26) mmol/L ABG O2 Content (12.0-20.0) Vol % ABG Base Excess (-2-2) mmol/L ABG Methemoglobin (0-2) % Aram Test Hemoglobin (12.0-16.0) G/DL Carboxyhemoglobin (0-4) % O2 Delivery Device Liter Flow L/M Critical Value Sodium (136-145) meq/L Potassium (3.5-5.1) meq/L Chloride (98-107) meq/L Carbon Dioxide (21.0-32.0) meq/L Anion Gap (5-15) meq/L BUN (7-18) mg/dL Creatinine (0.60-1.30) mg/dL Estimated GFR (>89) mL/min Random Glucose (74-106) mg/dL Lactic Acid 1.0 (0.4-2.0) mmol/L Calcium (8.5-10.1) mg/dL Total Bilirubin (0.2-1.0) mg/dL AST (15-37) U/L ALT (12-78) U/L Alkaline Phosphatase (45-117) U/L Troponin I (0.02-0.05) ng/mL Total Protein (6.4-8.2) g/dL Albumin (3.4-5.0) g/dL Lipase (73-393) U/L Urine Color [place] (Yellw/Straw) Urine Clarity Turbid H (Clear) Urine pH 6.0 (5.0-8.5) Ur Specific [place] 1.023 (1.002-1.035) Urine Protein 100 H (Neg-Trace) mg/dL Urine Glucose (UA) Negative (Negative) mg/dL Urine Ketones Negative (Negative) mg/dL Urine Occult Blood Moderate H (Negative) Urine Nitrate Negative (Negative) Urine Bilirubin Negative (Negative) Urine Urobilinogen 2.0 H (Less than 2) mg/dL Ur Leukocyte Esterase Moderate H (Negative) Urine RBC 12 H (0-3) /hpf Urine WBC 109 H (0-5) /hpf Amorphous Sediment Few H (None) /hpf Urine Bacteria Occasional H (None) /hpf Urine Mucus Few H (Occasional) /lpf Micro UA Comment Cath-culture ind Ur Microscopic Review Not Reportable Urine Culture Comments Cath-cult indicated 06/23/18 Range/Units 20:25 WBC (4.0-11.0) th/mm3 RBC (4.50-5.90) mil/mm3 Hgb (13.0-17.0) gm/dL Hct (39.0-51.0) % MCV (80.0-100.0) fL MCH (27.0-34.0) pg MCHC (32.0-36.0) % RDW (11.6-17.2) % Plt Count (150-450) th/mm3 MPV (7.0-11.0) fL Neut % (Auto) (16.0-70.0) % Lymph % (Auto) (9.0-44.0) % [place] % (Auto) (0.0-8.0) % Eos % (Auto) (0.0-4.0) % Baso % (Auto) (0.0-2.0) % Neut # (Auto) (1.8-7.7) th/mm3 Lymph # (Auto) (1.0-4.8) th/mm3 [place] # (Auto) (0.0-0.9) th/mm3 Eos # (Auto) (0.0-0.4) th/mm3 Baso # (Auto) (0.0-0.2) th/mm3 WBC Differential Differential Comment PT (9.8-11.6) sec INR Ratio APTT (24.3-30.1) sec Puncture Site Right radial Patient Temperature 98.6 O2 Saturation 96 (90-100) % ABG pH 7.43 H (7.380-7.420) ABG pCO2 40 (38-42) mmHg ABG pO2 104 (61-120) mmHg ABG HCO3 27 H (22-26) mmol/L ABG O2 Content 13.3 (12.0-20.0) Vol % ABG Base Excess 2.5 H (-2-2) mmol/L ABG Methemoglobin 0.6 (0-2) % Aram Test Present Hemoglobin 9.7 L (12.0-16.0) G/DL Carboxyhemoglobin 1.1 (0-4) % O2 Delivery Device Nasal cannula Liter Flow 2.00 L/M Critical Value No Sodium (136-145) meq/L Potassium (3.5-5.1) meq/L Chloride (98-107) meq/L Carbon Dioxide (21.0-32.0) meq/L Anion Gap (5-15) meq/L BUN (7-18) mg/dL Creatinine (0.60-1.30) mg/dL Estimated GFR (>89) mL/min Random Glucose (74-106) mg/dL Lactic Acid (0.4-2.0) mmol/L Calcium (8.5-10.1) mg/dL Total Bilirubin (0.2-1.0) mg/dL AST (15-37) U/L ALT (12-78) U/L Alkaline Phosphatase (45-117) U/L Troponin I (0.02-0.05) ng/mL Total Protein (6.4-8.2) g/dL Albumin (3.4-5.0) g/dL Lipase (73-393) U/L Urine Color (Yellw/Straw) Urine Clarity (Clear) Urine pH (5.0-8.5) Ur Specific [place] (1.002-1.035) Urine Protein (Neg-Trace) mg/dL Urine Glucose (UA) (Negative) mg/dL Urine Ketones (Negative) mg/dL Urine Occult Blood (Negative) Urine Nitrate (Negative) Urine Bilirubin (Negative) Urine Urobilinogen (Less than 2) mg/dL Ur Leukocyte Esterase (Negative) Urine RBC (0-3) /hpf Urine WBC (0-5) /hpf Amorphous Sediment (None) /hpf Urine Bacteria (None) /hpf Urine Mucus (Occasional) /lpf Micro UA Comment Ur Microscopic Review Urine Culture Comments Imaging Data Radiologist's impression: Chest X-Ray 06/23/18 19:13 CONCLUSION: Right mid lung parenchymal consolidation, presumably pneumonia. Chest x-ray follow-up to resolution recommended. ECG Data EKG Prior to Arrival: Yes Prior ECG tracings: available for review Interpretation: EKG: Sinus tachycardia rate 120 right axis deviation with right bundle branch block QS septally age-indeterminate, no acute ST elevation; prior EKG 01/02/17 identifies first-degree AV block and right bundle branch block. Discharge Plan Discharge Disposition Patient Disposition: 30 Still Patient Discharge Condition Condition: Stable Discharge Details Diagnosis: Pneumonia, Hyperthermia, COPD (chronic obstructive pulmonary disease), Elevated troponin Physicians Team ED Provider: Lottie Henson Rxs /Orders / Referrals /Forms Prescriptions: No Action miconazole nitrate [Akbar Antifungal] 2 % Cream 1 applic TOPICAL TID RF: 0 phenazopyridine 200 mg Tablet 200 mg PO TID RF: 0 tamsulosin [Flomax] 0.4 mg Capsule 0.4 mg PO DAILY RF: 0 docusate sodium [Colace] 100 mg Capsule 100 mg PO BID RF: 0 sertraline [Zoloft] 25 mg Tablet 25 mg PO DAILY RF: 0 pravastatin 20 mg Tablet 20 mg PO DAILY RF: 0 lisinopril 5 mg Tablet 5 mg PO DAILY RF: 0 enoxaparin [Lovenox] 30 mg/0.3 mL Syringe 30 mg SUBCUT Q12H RF: 0 omeprazole 20 mg Tablet,Delayed Release (Dr/Ec) 20 mg PO DAILY RF: 0 cephalexin [Keflex] 500 mg capsule 500 mg PO Q12H 10 Days Qty: 20 RF: 0 Status ED Status: With Doctor
[2018-06-23 19:44] LABS: Baso % (Auto) 0.4 % (0.0-2.0); Eos % (Auto) 0.1 % (0.0-4.0); Hematocrit 32.9 % (39.0-51.0); Hemoglobin 11.2 gm/dL (13.0-17.0); Lymph # (Auto) 0.4 th/mm3 (1.0-4.8); Lymph % (Auto) 6.8 % (9.0-44.0); Mean Corpuscular HGB Conc 34.1 % (32.0-36.0); Mean Corpuscular Hemoglobin 30.1 pg (27.0-34.0); Mean Corpuscular Volume 88.5 fL (80.0-100.0); Mean Platelet Volume 7.9 fL (7.0-11.0); Mono # (Auto) 0.4 th/mm3 (0.0-0.9); Mono % (Auto) 5.4 % (0.0-8.0); Neut # (Auto) 5.8 th/mm3 (1.8-7.7); Neut % (Auto) 87.3 % (16.0-70.0); Platelet Count 260 th/mm3 (150-450); Red Blood Count 3.72 mil/mm3 (4.50-5.90); Red Cell Distribution Width 14.6 % (11.6-17.2); White Blood Count 6.6 th/mm3 (4.0-11.0)
[2018-06-23 19:54] LABS: INR 1.1 Ratio; Prothrombin Time 11.3 sec (9.8-11.6)
[2018-06-23 19:57] LABS: Albumin 2.5 g/dL (3.4-5.0); Anion Gap 11 meq/L (5-15); Aspartate Aminotransferase 60 U/L (15-37); Blood Urea Nitrogen 18 mg/dL (7-18); Calcium 7.6 mg/dL (8.5-10.1); Carbon Dioxide 25.5 meq/L (21.0-32.0); Chloride 95 meq/L (98-107); Glomerular Filtration Rate Greater Than 89 mL/min (>89); Glucose,Random 132 mg/dL (74-106); Lipase 65 U/L (73-393); Potassium 3.9 meq/L (3.5-5.1); Sodium 131 meq/L (136-145)
[2018-06-23 19:58] LABS: Alanine Aminotransferase 36 U/L (12-78)
[2018-06-23] MEDS ORDERED: Sodium Chlor 0.9% Inj 500 ML IV.SIG SCH (20:00)
[2018-06-23 20:02] LABS: Alkaline Phosphatase 156 U/L (45-117); Total Protein 6.3 g/dL (6.4-8.2); Troponin I 0.44 ng/mL (0.02-0.05)
--- NOTE | 2018-06-23 20:04 | XR ---
EXAM DATE: 06/23/2018 7:13 PM EDT AGE/SEX: 77 years / Male INDICATIONS: Fever. CLINICAL DATA: This is the patient's initial encounter. Patient reports that signs and symptoms have been present for 1 day and indicates a pain score of 0/10. MEDICAL/SURGICAL HISTORY: Non-responsive. Non-responsive. COMPARISON: [facility] – [place], CHEST SINGLE AP, 02/08/2017. . FINDINGS: Ill-defined parenchymal opacity seen in the right hilar region. Left lung appears clear. No pleural e ffusion. No pneumothorax. CONCLUSION: Right mid lung parenchymal consolidation, presumably pneumonia. Chest x-ray follow-up to resolution r ecommended. Electronically signed by: Javon Delgado MD 06/23/2018 8:03 PM EDT
[2018-06-23 20:34] LABS: ABG Base Excess 2.5 mmol/L (-2-2); ABG PCO2 40 mmHg (38-42); ABG PO2 104 mmHg (61-120)
[2018-06-23 20:41] LABS: Amorphous Sediment,Urine Few /hpf; Bacteria,Urine Occasional /hpf; Bilirubin,Urine Negative (Negative); Clarity,Urine Turbid (Clear); Color,Urine Amber (Yellw/Straw); Glucose,Urine (UA) Negative (Negative); Leukocyte Esterase,Urine Moderate (Negative); Mucus,Urine Few /lpf (Occasional); Nitrite,Urine Negative (Negative); Specific Gravity,Urine 1.023 (1.002-1.035)
[2018-06-23] MEDS ORDERED: Sod Chloride 0.9% Inj 1,000 ML IV.SIG SCH (21:00)
[2018-06-23] MEDS ORDERED: Heparin Drip 25,000 UNIT/250 ML BAG IV.CONT PRN (21:05)
[2018-06-23] MEDS ORDERED: Heparin 10,000 UNITS/10 ML Vial (for IV use) IV.PUSH STA (21:05)
[2018-06-23] MEDS: Azithromycin Inj 500 MG in Sodium Chlor 0.9% Inj 250 ML IV.SIG SCH (21:25)
[2018-06-23] MEDS ORDERED: Vancomycin Consult Pharmacy OTHER PRN (22:45)
[2018-06-23] MEDS ORDERED: Bisacodyl 10 MG Supp RECTAL PRN (22:48)
[2018-06-23] MEDS ORDERED: Acetaminophen 325 MG Tablet PO PRN (22:48)
--- NOTE | 2018-06-23 22:54 | P.HP ---
History of Present Illness Service: [facility] Primary Care Physician: UNKNOWN History of Present Illness: 77-year-old male with a past medical history significant for hypertension, chronic hyponatremia, COPD on hospice, hyperlipidemia, GERD and recent hip fracture discharged from rehab 2 days ago presents to the emergency department for evaluation of fever. The patient is on hospice for end-stage COPD. His nurse was checking on him and found his house to have a temperature of 92 F and the patient's temperature was 107 at home. Patient was reportedly confused upon arrival to the emergency department. At this time he is answering questions appropriately. His temperature has normalized. He denies any pain. No chest pain or shortness of breath. Troponin is elevated to 0.44. Previous troponin in 2017 was within normal limits. He denies any abdominal pain. No nausea/vomiting/diarrhea. No lateralizing signs/symptoms. Inpatient Certification: I certify that the inpatient services were ordered in accordance with Medicare regulations governing the order. 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 - Medical History Medical History: Medical History (Last Reviewed 06/23/18 @ 22:45 by Janet Smith MD) COPD (chronic obstructive pulmonary disease) Depression GERD (gastroesophageal reflux disease) HTN (hypertension) Hyperlipidemia Fracture of left femur - Surgical History Surgical History: Surgical History (Last Updated 06/23/18 @ 22:45 by Janet Smith MD) History of hip surgery - Family History Family History: Family History (Last Updated 06/23/18 @ 22:45 by Janet Smith MD) Other Family history normal - Tobacco History Smoking Status: Never smoker Tobacco Type: Cigarettes - Alcohol History How Often Do You Have a Drink Containing Alcohol: Never - Substance Use History Substance History: No History of Abuse - Travel History Recent Travel in the [place] Within the Last 8 Weeks: No Recent Travel Out of the Country Within the Last 8 Weeks: No - Immunization History Tetanus Immunization: Unable to Assess Hx Influenza Vaccine This Season: Unable to Assess Medications and Allergies Active Medications: Active Medications Sodium Chloride (Ns Inj) 1,000 mls @ 100 mls/hr IV.CONT .Q10H KARISSA Sodium Chloride (Ns Inj) 500 mls @ 0 mls/hr IV.SIG BOLUS KARISSA Azithromycin 500 mg/ Sodium (Chloride) 250 mls @ 250 mls/hr IV.SIG Q24H KARISSA Last Infusion: 06/23/18 21:50 Dose: Infused Sodium Chloride (Ns Inj) 1,000 mls @ 0 mls/hr IV.SIG BOLUS KARISSA Heparin Sodium/Dextrose (Heparin/D5w 25,000 U/250 Ml) 25,000 unit in 250 mls @ 0 mls/hr IV.CONT TITRATE PRN; Protocol PRN Reason: Per Protocol Last Admin: 06/23/18 21:55 Dose: 900 units/hr, 9 mls/hr Sodium Chloride (Ns Flush) 2 ml IV.FLUSH PRN PRN PRN Reason: FLUSH AFTER USING IV ACCESS Allergies Allergy/AdvReac Type Severity Reaction Status Date / Time No Known Allergies Allergy Verified 06/23/18 19:07 Home Medications Medication Instructions Recorded Confirmed Type docusate sodium [Colace] 100 mg PO BID 06/15/18 06/23/18 History enoxaparin [Lovenox] 30 mg SUBCUT Q12H 06/15/18 06/23/18 History lisinopril 5 mg PO DAILY 06/15/18 06/23/18 History miconazole nitrate [Akbar 1 applic TOPICAL TID 06/15/18 06/23/18 History Antifungal] omeprazole 20 mg PO DAILY 06/15/18 06/23/18 History phenazopyridine 200 mg PO TID 06/15/18 06/23/18 History pravastatin 20 mg PO DAILY 06/15/18 06/23/18 History sertraline [Zoloft] 25 mg PO DAILY 06/15/18 06/23/18 History tamsulosin [Flomax] 0.4 mg PO DAILY 06/15/18 06/23/18 History Exam Vital signs: Vital Signs 06/23/18 19:01 06/23/18 19:30 06/23/18 20:31 Temperature 104.7 F H Pulse Rate 120 H 110 H 98 H Respiratory Rate 20 20 20 Blood Pressure 134/66 126/64 126/64 Pulse Oximetry 97 98 97 06/23/18 21:45 06/23/18 21:57 Temperature 98.5 F Pulse Rate 83 Respiratory Rate 18 Blood Pressure 97/58 L Pulse Oximetry 98 Intake & Output 06/23/18 06/23/18 06/24/18 06:59 18:59 06:59 Intake Total 350 / 350 Balance 350 / 350 Weight 72.575 kg Intake: IV 350 / 350 Azithromycin Inj 500 MG In NS 250 / 250 Inj 250 ML @ 250 mls/hr IV.SIG Q24H [facility] Rx#:[id number] Maxipime Inj 2,000 MG In NS Inj 100 / 100 100 ML @ 200 mls/hr IV.SIG ONCE ONE Rx#:[id number] Narrative: Gen.: No acute distress Head: Normocephalic. Atraumatic. EENT: Pupils equal round and reactive to light. Nose without drainage. Airway intact. Throat without injection. Cardiovascular: Regular rate and rhythm. No murmurs, rubs or gallops. Respiratory: Lungs clear to auscultation bilaterally. No wheezes or rhonchi. Abdomen: Soft, nontender, nondistended. No peritoneal signs. Musculoskeletal: No gross deformities. No edema. Skin: No obvious rashes or erythema. Neuro: Sensory and motor grossly intact. Cranial nerves II through XII grossly intact. Results - Labs CBC & Chem 7: 06/23/18 19:30 06/23/18 19:30 Labs: Laboratory Results - last 24 hr 06/23/18 06/23/18 06/23/18 19:30 19:30 19:30 WBC 6.6 RBC 3.72 L Hgb 11.2 L Hct 32.9 L MCV 88.5 MCH 30.1 MCHC 34.1 RDW 14.6 Plt Count 260 MPV 7.9 Neut % (Auto) 87.3 H Lymph % (Auto) 6.8 L [place] % (Auto) 5.4 Eos % (Auto) 0.1 Baso % (Auto) 0.4 Neut # (Auto) 5.8 Lymph # (Auto) 0.4 L [place] # (Auto) 0.4 Eos # (Auto) 0.0 Baso # (Auto) 0.0 WBC Differential . Differential Comment Auto diff final PT 11.3 INR 1.1 APTT Puncture Site Patient Temperature O2 Saturation ABG pH ABG pCO2 ABG pO2 ABG HCO3 ABG O2 Content ABG Base Excess ABG Methemoglobin Aram Test Hemoglobin Carboxyhemoglobin O2 Delivery Device Liter Flow Critical Value Sodium 131 L Potassium 3.9 Chloride 95 L Carbon Dioxide 25.5 Anion Gap 11 BUN 18 Creatinine 0.79 Estimated GFR Greater than 89 Random Glucose 132 H Lactic Acid Calcium 7.6 L Total Bilirubin 0.5 AST 60 H ALT 36 Alkaline Phosphatase 156 H Troponin I 0.44 H Total Protein 6.3 L Albumin 2.5 L Lipase 65 L Urine Color Urine Clarity Urine pH Ur Specific [place] Urine Protein Urine Glucose (UA) Urine Ketones Urine Occult Blood Urine Nitrate Urine Bilirubin Urine Urobilinogen Ur Leukocyte Esterase Urine RBC Urine WBC Amorphous Sediment Urine Bacteria Urine Mucus Micro UA Comment Ur Microscopic Review Urine Culture Comments 06/23/18 06/23/18 06/23/18 19:30 19:30 19:43 WBC RBC Hgb Hct MCV MCH MCHC RDW Plt Count MPV Neut % (Auto) Lymph % (Auto) [place] % (Auto) Eos % (Auto) Baso % (Auto) Neut # (Auto) Lymph # (Auto) [place] # (Auto) Eos # (Auto) Baso # (Auto) WBC Differential Differential Comment PT INR APTT 24.5 Puncture Site Patient Temperature O2 Saturation ABG pH ABG pCO2 ABG pO2 ABG HCO3 ABG O2 Content ABG Base Excess ABG Methemoglobin Aram Test Hemoglobin Carboxyhemoglobin O2 Delivery Device Liter Flow Critical Value Sodium Potassium Chloride Carbon Dioxide Anion Gap BUN Creatinine Estimated GFR Random Glucose Lactic Acid 1.0 Calcium Total Bilirubin AST ALT Alkaline Phosphatase Troponin I Total Protein Albumin Lipase Urine Color [place] Urine Clarity Turbid H Urine pH 6.0 Ur Specific [place] 1.023 Urine Protein 100 H Urine Glucose (UA) Negative Urine Ketones Negative Urine Occult Blood Moderate H Urine Nitrate Negative Urine Bilirubin Negative Urine Urobilinogen 2.0 H Ur Leukocyte Esterase Moderate H Urine RBC 12 H Urine WBC 109 H Amorphous Sediment Few H Urine Bacteria Occasional H Urine Mucus Few H Micro UA Comment Cath-culture ind Ur Microscopic Review Not Reportable Urine Culture Comments Cath-cult indicated 06/23/18 20:25 WBC RBC Hgb Hct MCV MCH MCHC RDW Plt Count MPV Neut % (Auto) Lymph % (Auto) [place] % (Auto) Eos % (Auto) Baso % (Auto) Neut # (Auto) Lymph # (Auto) [place] # (Auto) Eos # (Auto) Baso # (Auto) WBC Differential Differential Comment PT INR APTT Puncture Site Right radial Patient Temperature 98.6 O2 Saturation 96 ABG pH 7.43 H ABG pCO2 40 ABG pO2 104 ABG HCO3 27 H ABG O2 Content 13.3 ABG Base Excess 2.5 H ABG Methemoglobin 0.6 Aram Test Present Hemoglobin 9.7 L Carboxyhemoglobin 1.1 O2 Delivery Device Nasal cannula Liter Flow 2.00 Critical Value No Sodium Potassium Chloride Carbon Dioxide Anion Gap BUN Creatinine Estimated GFR Random Glucose Lactic Acid Calcium Total Bilirubin AST ALT Alkaline Phosphatase Troponin I Total Protein Albumin Lipase Urine Color Urine Clarity Urine pH Ur Specific [place] Urine Protein Urine Glucose (UA) Urine Ketones Urine Occult Blood Urine Nitrate Urine Bilirubin Urine Urobilinogen Ur Leukocyte Esterase Urine RBC Urine WBC Amorphous Sediment Urine Bacteria Urine Mucus Micro UA Comment Ur Microscopic Review Urine Culture Comments - Imaging Impressions Chest X-Ray 06/23/18 19:13 CONCLUSION: Right mid lung parenchymal consolidation, presumably pneumonia. Chest x-ray follow-up to resolution recommended. Caprini VTE Risk Assessment Caprini VTE Risk Assessment: Moderate/High Risk (score >= 2) Caprini Risk Assessment Model: Point Value = 1 Point Value = 2 Point Value = 3 Point Value = 5 Age 41-60 Minor surgery BMI > 25 kg/m2 Swollen legs Varicose veins or History of unexplained or recurrent spontaneous Oral contraceptives or hormone replacement Sepsis (< 1 month) Serious lung disease, including pneumonia (< 1 month) Abnormal pulmonary function Acute myocardial infarction Congestive heart failure (< 1 month) History of inflammatory bowel disease Medical patient at bed rest Age 61-74 Arthroscopic surgery Major open surgery (> 45 min) Laparoscopic surgery (> 45 min) Malignancy Confined to bed (> 72 hours) Immobilizing plaster cast Central venous access Age >= 75 History of VTE Family history of VTE Factor V Leiden Prothrombin [id number] Lupus anticoagulant Anticardiolipin antibodies Elevated serum homocysteine Heparin-induced thrombocytopenia Other congenital or acquired thrombophilia Stroke (< 1 month) Elective arthroplasty Hip, pelvis, or leg fracture Acute spinal cord injury (< 1 month) Prophylaxis Regimen: Total Risk Factor Score Risk Level Prophylaxis Regimen 0-1 Low Early ambulation 2 Moderate Order ONE of the following: *Sequential Compression Device (SCD) *Heparin 5000 units SQ BID 3-4 Higher Order ONE of the following medications: *Heparin 5000 units SQ TID *Enoxaparin/Lovenox 40 mg SQ daily (WT < 150 kg, CrCl > 30 mL/min) *Enoxaparin/Lovenox 30 mg SQ daily (WT < 150 kg, CrCl > 10-29 mL/min) *Enoxaparin/Lovenox 30 mg SQ BID (WT < 150 kg, CrCl > 30 mL/min) AND/OR *Sequential Compression Device (SCD) 5 or more Highest Order ONE of the following medications: *Heparin 5000 units SQ TID (Preferred with Epidurals) *Enoxaparin/Lovenox 40 mg SQ daily (WT < 150 kg, CrCl > 30 mL/min) *Enoxaparin/Lovenox 30 mg SQ daily (WT < 150 kg, CrCl > 10-29 mL/min) *Enoxaparin/Lovenox 30 mg SQ BID (WT < 150 kg, CrCl > 30 mL/min) AND *Sequential Compression Device (SCD) Assessment and Plan - Plan Assessment/plan: 1. Hyperthermia/AMS Resolved with evaporative cooling 2. Healthcare associated pneumonia Chest x-ray significant for right mid lung consolidation Patient discharged from rehab 2-3 days ago Vancomycin and cefepime Blood cultures pending 3. Urinary tract infection UA consistent with UTI Urine culture pending Antibiotics as above 4. NSTEMI Troponin 0.44, no history of previously elevated troponin EKG significant for sinus tachycardia with right bundle branch block, no signs of ischemia, personally reviewed ACS rule out pending; serial troponins/EKGs Heparin bolus and drip Cardiology consulted, appreciate recommendations 5. Hypertension/hyperlipidemia/GERD Continue home medications 6. History of recent hip surgery PT consulted 7. COPD Continue home oxygen supplementation Duo shanika KABA N.p.o. Electrolytes: Monitor and replete as needed NS at 100 cc/hr Heparin drip
[2018-06-23] MEDS ORDERED: Sodium Chloride 0.9% 2 ML Flush PRN IV.FLUSH (23:09)
[2018-06-23] MEDS: Sod Chloride 0.9% Inj 1,000 ML IV.CONT SCH (23:12)
[2018-06-24 02:29] LABS: Baso % (Auto) 0.2 % (0.0-2.0); Eos % (Auto) 0.1 % (0.0-4.0); Hemoglobin 10.9 gm/dL (13.0-17.0); Lymph # (Auto) 0.9 th/mm3 (1.0-4.8); Lymph % (Auto) 10.8 % (9.0-44.0); Mean Corpuscular HGB Conc 33.9 % (32.0-36.0); Mean Corpuscular Hemoglobin 30.7 pg (27.0-34.0); Mean Corpuscular Volume 90.6 fL (80.0-100.0); Mean Platelet Volume 7.7 fL (7.0-11.0); Mono # (Auto) 0.9 th/mm3 (0.0-0.9); Mono % (Auto) 10.1 % (0.0-8.0); Neut # (Auto) 6.8 th/mm3 (1.8-7.7); Neut % (Auto) 78.8 % (16.0-70.0); Platelet Count 220 th/mm3 (150-450); Red Blood Count 3.54 mil/mm3 (4.50-5.90); Red Cell Distribution Width 14.6 % (11.6-17.2); White Blood Count 8.7 th/mm3 (4.0-11.0)
[2018-06-24 02:48] LABS: Potassium 3.6 meq/L (3.5-5.1); Sodium 136 meq/L (136-145)
[2018-06-24 02:49] LABS: Anion Gap 8 meq/L (5-15); Blood Urea Nitrogen 16 mg/dL (7-18); Carbon Dioxide 28.7 meq/L (21.0-32.0); Chloride 99 meq/L (98-107); Creatine Kinase 87 U/L (39-308); Glomerular Filtration Rate Greater Than 89 mL/min (>89); Glucose,Random 120 mg/dL (74-106); Troponin I 0.34 ng/mL (0.02-0.05)
[2018-06-24 03:03] LABS: Total Protein 5.5 g/dL (6.4-8.2)
[2018-06-24] MEDS: Sod Chloride 0.9% Inj 1,000 ML IV.CONT SCH ×4 (05:45→21:31)
--- NOTE | 2018-06-24 09:46 | MB ---
cc: Ian Schaeffer MD DATE: 06/24/2018 REASON FOR CONSULTATION: Evaluation of elevated troponin. HISTORY OF PRESENT ILLNESS: Yanna Silva is a 77-year-old man admitted to the hospital with an elevated troponin, but also when he came in his rectal temperature was 104.7 degrees and his heart rate was 120. The patient is noted to have severe COPD and apparently is on hospice at home. I could not obtain much history from the patient. He says he does not have any family living at home. Denies having any chest pain. He did not know why he was in the hospital. He appears to answer questions appropriately but certainly has some degree of confusion with him not knowing why he is in the hospital. His temperature has come down. PAST MEDICAL HISTORY: Notable for COPD, depression, acid reflux, hypertension, hyperlipidemia, previous left femur fracture. PAST SURGICAL HISTORY: Includes hip surgery. FAMILY HISTORY: Unremarkable. SOCIAL HISTORY: He is not currently smoking. Denies alcohol. PHYSICAL EXAMINATION: GENERAL: Reveals an elderly white male. He appears resting comfortably, in no acute distress. VITAL SIGNS: Charted. He is no longer tachycardic. Temperature has come down. HEENT: Unremarkable. NECK: No JVD. No bruits. CHEST: Shows diminished breath sounds. Could not hear wheezes, rales or rhonchi. CARDIAC: S1, S2, regular rate and rhythm, without murmurs or gallops. ABDOMEN: Soft. EXTREMITIES: No clubbing, cyanosis or edema. LABORATORY DATA: His lab work shows that his troponin started out at 0.44 and has come down to 0.34. Creatinine is normal. White count has been normal. Hematocrit is 32. Chest x-ray is abnormal with suggestion of possible infiltrate right mid lung, possible pneumonia. EKG shows on admission he had sinus tachycardia, right bundle branch block, left anterior fascicular block. Now has sinus rhythm, heart rate of [address] No acute [address]-T wave changes. IMPRESSION: Elevated troponin in the setting of real high fever and elevated heart rate. This could be a type II subendocardial myocardial infarction event. Certainly not having any anginal symptoms and with his history of being on hospice, I want to manage this conservatively. I am putting him on daily aspirin, adding Metoprolol 12.5 b.i.d. Check LV function with an echo. Check lipid profile and consider statin initiation. Thank you very much for this consultation. MD EFRAÍN Moncada/benjamin , 09:16 AM , 09:26 AM
[2018-06-24] MEDS: Docusate Sodium 100 MG Capsule PO SCH ×2 (09:49→21:14)
[2018-06-24] MEDS: Sodium Chloride 0.9% 2 ML Flush BID IV.FLUSH SCH ×2 (09:49→21:14)
[2018-06-24] MEDS: Pantoprazole Sodium 20 MG DR Tablet PO SCH (09:49)
[2018-06-24] MEDS: Lisinopril 5 MG Tablet PO SCH (09:49)
[2018-06-24] MEDS: Sertraline 50 MG Tablet PO SCH (09:55)
[2018-06-24 10:34] LABS: Troponin I 0.2 ng/mL (0.02-0.05)
[2018-06-24 10:41] LABS: Chol/HDL Ratio 2.96 Ratio; HDL Cholesterol 41.2 mg/dL (40.0-60.0)
--- NOTE | 2018-06-24 14:25 | ECHRPT ---
Indication: CORONARY ATHEROSCLEROSIS CONCLUSIONS Normal left ventricular size. Wall thickness is normal. The left ventricular systolic function is normal with an estimated ejection fraction in the range of 55-60%. There is mild tricuspid valve regurgitation. The estimated pulmonary arterial pressure is 42 mmHg. BP: / HR: Rhythm: MEASUREMENTS (Male / Female) Normal Values Technical Quality:Very technically difficult study 2D ECHO LV Diastolic Diameter PLAX 4.4 cm 4.2 - 5.9 / 3.9 - 5.3 cm LV Systolic Diameter PLAX 2.9 cm IVS Diastolic Thickness 1.0 cm 0.6 - 1.0 / 0.6 - 0.9 cm LVPW Diastolic Thickness 1.1 cm 0.6 - 1.0 / 0.6 - 0.9 cm LV Relative Wall Thickness 0.5 RV Internal Dim ED PLAX 2.8 cm LVOT Diameter 2.2 cm Aortic Root Diameter 3.2 cm LA Systolic Diameter LX 3.7 cm 3.0 - 4.0 / 2.7 - 3.8 cm M-MODE Aortic Root Diameter MM 3.8 cm LA Systolic Diameter MM 4.0 cm LA Ao Ratio MM 1.1 DOPPLER TR Peak Velocity 282.0 cm/s TR Peak Gradient 32.0 mmHg Right Atrial Pressure 10.0 mmHg Pulmonary Artery Systolic Pressu 41.8 mmHg Right Ventricular Systolic Press 41.8 mmHg PV Peak Velocity 149.0 cm/s PV Peak Gradient 8.9 mmHg FINDINGS LEFT VENTRICLE Normal left ventricular size. Wall thickness is normal. The left ventricular systolic function is normal with an estimated ejection fraction in the range of 55-60%. RIGHT VENTRICLE Normal right ventricular size and systolic function. LEFT ATRIUM The left atrial size is normal. RIGHT ATRIUM The right atrial size is normal. ATRIAL SEPTUM Normal atrial septal thickness without atrial level shunting by limited color doppler interrogation. AORTA The aortic root and proximal ascending aorta are normal in size on limited imaging. MITRAL VALVE Structurally normal mitral valve. No mitral valve stenosis or regurgitation. AORTIC VALVE Trileaflet aortic valve. No aortic valve stenosis or regurgitation. TRICUSPID VALVE There is mild tricuspid valve regurgitation. The estimated pulmonary arterial pressure is 42 mmHg. PULMONARY VALVE No pulmonary valve regurgitation or stenosis. VESSELS The inferior vena cava is normal in size. PERICARDIUM No pericardial effusion. Teddy Gonzalez MD, FACC (Electronically Signed) Final Date:24 June 2018 14:24
--- NOTE | 2018-06-24 15:38 | P.PNIM ---
Subjective Interval history: The patient was resting comfortably. He had no acute complaints. He said he wanted to go home with his daughter as soon as tomorrow. 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 Discussed with nursing. Physical Exam Vital signs: Vital Signs 06/23/18 19:01 06/23/18 19:30 06/23/18 20:31 Temperature 104.7 F H Pulse Rate 120 H 110 H 98 H Respiratory Rate 20 20 20 Blood Pressure 134/66 126/64 126/64 Pulse Oximetry 97 98 97 06/23/18 21:45 06/23/18 21:57 06/23/18 22:06 Temperature 98.5 F Pulse Rate 83 79 Respiratory Rate 18 18 Blood Pressure 97/58 L 129/71 Pulse Oximetry 98 98 06/23/18 23:52 06/24/18 00:00 06/24/18 00:22 Temperature 97.6 F Pulse Rate 66 65 Respiratory Rate 20 18 Blood Pressure 149/83 H Pulse Oximetry 99 06/24/18 01:00 06/24/18 02:00 06/24/18 03:00 Temperature Pulse Rate 67 78 66 Respiratory Rate Blood Pressure Pulse Oximetry 06/24/18 04:00 06/24/18 05:00 06/24/18 06:00 Temperature 97.7 F Pulse Rate 82 64 62 Respiratory Rate 17 Blood Pressure 128/79 Pulse Oximetry 100 06/24/18 07:00 06/24/18 08:00 06/24/18 09:00 Temperature 97.6 F Pulse Rate 64 67 61 Respiratory Rate 18 Blood Pressure 132/67 Pulse Oximetry 98 06/24/18 10:00 06/24/18 11:00 06/24/18 12:00 Temperature 97.6 F Pulse Rate 58 L 62 62 Respiratory Rate 18 Blood Pressure 143/81 H Pulse Oximetry 99 06/24/18 13:00 Temperature Pulse Rate 62 Respiratory Rate Blood Pressure Pulse Oximetry Intake & Output 06/23/18 06/24/18 06/24/18 18:59 06:59 18:59 Intake Total 940 / 940 1350 / 1350 Output Total 350 / 350 Balance 590 / 590 1350 / 1350 Weight 69.5 kg Intake: IV 700 / 700 1350 / 1350 Heparin/D5W 25,000 U/250 mL 25, 250 / 250 000 unit In 250 ml @ Per Protocol IV.CONT TITRATE PRN Rx #:[id number] NS Inj 1,000 ML @ 100 mls/hr IV 1000 / 1000 .CONT .Q10H [facility] Rx#:[id number] Azithromycin Inj 500 MG In NS 250 / 250 Inj 250 ML @ 250 mls/hr IV.SIG Q24H [facility] Rx#:[id number] Maxipime Inj 2,000 MG In NS Inj 200 / 200 100 / 100 100 ML @ 200 mls/hr IV.SIG Q8H [facility] Rx#:[id number] Vancomycin Inj 1,000 MG In NS 250 / 250 Inj 250 ML @ 250 mls/hr IV.SIG ONCE ONE Rx#:[id number] Oral 240 / 240 Output: Urine 350 / 350 Other: Date of Last Bowel Movement 06/24/18 Narrative: Gen.: No acute distress Head: Normocephalic. Atraumatic. EENT: Pupils equal round and reactive to light. Nose without drainage. Airway intact. Throat without injection. Cardiovascular: Regular rate and rhythm. No murmurs, rubs or gallops. Respiratory: Lungs clear to auscultation bilaterally. No wheezes or rhonchi. Abdomen: Soft, nontender, nondistended. No peritoneal signs. Musculoskeletal: No gross deformities. No edema. Skin: No obvious rashes or erythema. Neuro: Sensory and motor grossly intact. Cranial nerves II through XII grossly intact. - Urinary Catheter Management Indwelling Urethral Catheter Cath placed during this visit: yes Reason for continuing: Acute urinary retention Insertion date: 06/24/18 Insertion time: 19:40 Results - Labs CBC & Chem 7: 06/24/18 01:36 06/24/18 01:36 Laboratory Results - last 24 hr 06/23/18 06/23/18 06/23/18 19:30 19:30 19:30 WBC 6.6 RBC 3.72 L Hgb 11.2 L Hct 32.9 L MCV 88.5 MCH 30.1 MCHC 34.1 RDW 14.6 Plt Count 260 MPV 7.9 Neut % (Auto) 87.3 H Lymph % (Auto) 6.8 L [place] % (Auto) 5.4 Eos % (Auto) 0.1 Baso % (Auto) 0.4 Neut # (Auto) 5.8 Lymph # (Auto) 0.4 L [place] # (Auto) 0.4 Eos # (Auto) 0.0 Baso # (Auto) 0.0 WBC Differential . Differential Comment Auto diff final PT 11.3 INR 1.1 APTT Puncture Site Patient Temperature O2 Saturation ABG pH ABG pCO2 ABG pO2 ABG HCO3 ABG O2 Content ABG Base Excess ABG Methemoglobin Aram Test Hemoglobin Carboxyhemoglobin O2 Delivery Device Liter Flow Critical Value Sodium 131 L Potassium 3.9 Chloride 95 L Carbon Dioxide 25.5 Anion Gap 11 BUN 18 Creatinine 0.79 Estimated GFR Greater than 89 Random Glucose 132 H Lactic Acid Calcium 7.6 L Prot Corrected Calcium Total Bilirubin 0.5 AST 60 H ALT 36 Alkaline Phosphatase 156 H Total Creatine Kinase Troponin I 0.44 H Total Protein 6.3 L Albumin 2.5 L Triglycerides Cholesterol LDL Cholesterol, Calc HDL Cholesterol Cholesterol/HDL Ratio Lipase 65 L Urine Color Urine Clarity Urine pH Ur Specific [place] Urine Protein Urine Glucose (UA) Urine Ketones Urine Occult Blood Urine Nitrate Urine Bilirubin Urine Urobilinogen Ur Leukocyte Esterase Urine RBC Urine WBC Amorphous Sediment Urine Bacteria Urine Mucus Micro UA Comment Ur Microscopic Review Urine Culture Comments 06/23/18 06/23/18 06/23/18 19:30 19:30 19:43 WBC RBC Hgb Hct MCV MCH MCHC RDW Plt Count MPV Neut % (Auto) Lymph % (Auto) [place] % (Auto) Eos % (Auto) Baso % (Auto) Neut # (Auto) Lymph # (Auto) [place] # (Auto) Eos # (Auto) Baso # (Auto) WBC Differential Differential Comment PT INR APTT 24.5 Puncture Site Patient Temperature O2 Saturation ABG pH ABG pCO2 ABG pO2 ABG HCO3 ABG O2 Content ABG Base Excess ABG Methemoglobin Aram Test Hemoglobin Carboxyhemoglobin O2 Delivery Device Liter Flow Critical Value Sodium Potassium Chloride Carbon Dioxide Anion Gap BUN Creatinine Estimated GFR Random Glucose Lactic Acid 1.0 Calcium Prot Corrected Calcium Total Bilirubin AST ALT Alkaline Phosphatase Total Creatine Kinase Troponin I Total Protein Albumin Triglycerides Cholesterol LDL Cholesterol, Calc HDL Cholesterol Cholesterol/HDL Ratio Lipase Urine Color [place] Urine Clarity Turbid H Urine pH 6.0 Ur Specific [place] 1.023 Urine Protein 100 H Urine Glucose (UA) Negative Urine Ketones Negative Urine Occult Blood Moderate H Urine Nitrate Negative Urine Bilirubin Negative Urine Urobilinogen 2.0 H Ur Leukocyte Esterase Moderate H Urine RBC 12 H Urine WBC 109 H Amorphous Sediment Few H Urine Bacteria Occasional H Urine Mucus Few H Micro UA Comment Cath-culture ind Ur Microscopic Review Not Reportable Urine Culture Comments Cath-cult indicated 06/23/18 06/24/18 06/24/18 20:25 01:36 01:36 WBC 8.7 RBC 3.54 L Hgb 10.9 L Hct 32.0 L MCV 90.6 MCH 30.7 MCHC 33.9 RDW 14.6 Plt Count 220 MPV 7.7 Neut % (Auto) 78.8 H Lymph % (Auto) 10.8 [place] % (Auto) 10.1 H Eos % (Auto) 0.1 Baso % (Auto) 0.2 Neut # (Auto) 6.8 Lymph # (Auto) 0.9 L [place] # (Auto) 0.9 Eos # (Auto) 0.0 Baso # (Auto) 0.0 WBC Differential . Differential Comment Auto diff final PT INR APTT 44.3 H D Puncture Site Right radial Patient Temperature 98.6 O2 Saturation 96 ABG pH 7.43 H ABG pCO2 40 ABG pO2 104 ABG HCO3 27 H ABG O2 Content 13.3 ABG Base Excess 2.5 H ABG Methemoglobin 0.6 Aram Test Present Hemoglobin 9.7 L Carboxyhemoglobin 1.1 O2 Delivery Device Nasal cannula Liter Flow 2.00 Critical Value No Sodium Potassium Chloride Carbon Dioxide Anion Gap BUN Creatinine Estimated GFR Random Glucose Lactic Acid Calcium Prot Corrected Calcium Total Bilirubin AST ALT Alkaline Phosphatase Total Creatine Kinase Troponin I Total Protein Albumin Triglycerides Cholesterol LDL Cholesterol, Calc HDL Cholesterol Cholesterol/HDL Ratio Lipase Urine Color Urine Clarity Urine pH Ur Specific [place] Urine Protein Urine Glucose (UA) Urine Ketones Urine Occult Blood Urine Nitrate Urine Bilirubin Urine Urobilinogen Ur Leukocyte Esterase Urine RBC Urine WBC Amorphous Sediment Urine Bacteria Urine Mucus Micro UA Comment Ur Microscopic Review Urine Culture Comments 06/24/18 06/24/18 06/24/18 01:36 01:36 09:21 WBC RBC Hgb Hct MCV MCH MCHC RDW Plt Count MPV Neut % (Auto) Lymph % (Auto) [place] % (Auto) Eos % (Auto) Baso % (Auto) Neut # (Auto) Lymph # (Auto) [place] # (Auto) Eos # (Auto) Baso # (Auto) WBC Differential Differential Comment PT INR APTT Puncture Site Patient Temperature O2 Saturation ABG pH ABG pCO2 ABG pO2 ABG HCO3 ABG O2 Content ABG Base Excess ABG Methemoglobin Aram Test Hemoglobin Carboxyhemoglobin O2 Delivery Device Liter Flow Critical Value Sodium 136 Potassium 3.6 Chloride 99 Carbon Dioxide 28.7 Anion Gap 8 BUN 16 Creatinine 0.72 Estimated GFR Greater than 89 Random Glucose 120 H Lactic Acid Calcium 7.0 L* Prot Corrected Calcium 7.8 L Total Bilirubin AST ALT Alkaline Phosphatase Total Creatine Kinase 87 82 Troponin I 0.34 H 0.20 H Total Protein 5.5 L D Albumin Triglycerides 53 Cholesterol 122 LDL Cholesterol, Calc 70 HDL Cholesterol 41.2 Cholesterol/HDL Ratio 2.96 Lipase Urine Color Urine Clarity Urine pH Ur Specific [place] Urine Protein Urine Glucose (UA) Urine Ketones Urine Occult Blood Urine Nitrate Urine Bilirubin Urine Urobilinogen Ur Leukocyte Esterase Urine RBC Urine WBC Amorphous Sediment Urine Bacteria Urine Mucus Micro UA Comment Ur Microscopic Review Urine Culture Comments 06/24/18 09:21 WBC RBC Hgb Hct MCV MCH MCHC RDW Plt Count MPV Neut % (Auto) Lymph % (Auto) [place] % (Auto) Eos % (Auto) Baso % (Auto) Neut # (Auto) Lymph # (Auto) [place] # (Auto) Eos # (Auto) Baso # (Auto) WBC Differential Differential Comment PT INR APTT 30.5 H D Puncture Site Patient Temperature O2 Saturation ABG pH ABG pCO2 ABG pO2 ABG HCO3 ABG O2 Content ABG Base Excess ABG Methemoglobin Aram Test Hemoglobin Carboxyhemoglobin O2 Delivery Device Liter Flow Critical Value Sodium Potassium Chloride Carbon Dioxide Anion Gap BUN Creatinine Estimated GFR Random Glucose Lactic Acid Calcium Prot Corrected Calcium Total Bilirubin AST ALT Alkaline Phosphatase Total Creatine Kinase Troponin I Total Protein Albumin Triglycerides Cholesterol LDL Cholesterol, Calc HDL Cholesterol Cholesterol/HDL Ratio Lipase Urine Color Urine Clarity Urine pH Ur Specific [place] Urine Protein Urine Glucose (UA) Urine Ketones Urine Occult Blood Urine Nitrate Urine Bilirubin Urine Urobilinogen Ur Leukocyte Esterase Urine RBC Urine WBC Amorphous Sediment Urine Bacteria Urine Mucus Micro UA Comment Ur Microscopic Review Urine Culture Comments Microbiology 06/23/18 19:43 Catheterized Urine Urine Culture - Preliminary No growth. 06/23/18 19:20 Blood - Peripheral Aerobic Blood Culture - Preliminary No growth in 1 day 06/23/18 19:20 Blood - Peripheral Anaerobic Blood Culture - Preliminary No growth in 1 day 06/23/18 19:30 Blood - Peripheral Aerobic Blood Culture - Preliminary No growth in 1 day 06/23/18 19:30 Blood - Peripheral Anaerobic Blood Culture - Preliminary No growth in 1 day 06/23/18 19:45 Nasal Wash Influenza Types A,B Antigen - Final Negative for FLU A and B antigen Infection due to influenza A or B cannot be ruled out since the antigen present in the sample may be below the detection limit of the test. - Imaging Impressions Chest X-Ray 06/23/18 19:13 CONCLUSION: Right mid lung parenchymal consolidation, presumably pneumonia. Chest x-ray follow-up to resolution recommended. Assessment and Plan - Plan Hyperthermia/AMS -Resolved with evaporative cooling -on hospice, [facility] is following. Healthcare associated pneumonia Chest x-ray significant for right mid lung consolidation.Patient discharged from rehab 2-3 days ago -Vancomycin and cefepime -Blood cultures pending Urinary tract infection UA consistent with UTI -Urine culture pending -Antibiotics as above NSTEMI Troponin 0.44, no history of previously elevated troponin.EKG significant for sinus tachycardia with right bundle branch block, no signs of ischemia, personally reviewed. Cardiology consulted, appreciate recommendations. Echo with normal EF. -cardiac regimen per cardiology. History of recent hip surgery -PT consulted COPD -Continue home oxygen supplementation -Adama voss PPx: SCDs
[2018-06-24] MEDS: Vancomycin Inj 1,000 MG in Sodium Chlor 0.9% Inj 250 ML IV.SIG SCH (16:58)
--- NOTE | 2018-06-24 17:08 | ECG ---
Date Performed: 06/23/2018 Time Performed: 19:04:41 PTAGE: 77 years EKG: SINUS TACHYCARDIA MARKED RIGHT AXIS DEVIATION RIGHT BUNDLE BRANCH BLOCK POSSIBLE SEPTAL MAHNAZ CARDIAL INFARCTION SINCE PRIOR TRACING THE SINUS TACHYCARDIA IS NEW. THE RIGHT AXIS DEVIATION DESPITE THE SINUS TACHYCARDIA IS NEW EXCEPT FOR THE SINUS TACHYCARDIA AND SLIGHT RIGHTWARD SHIFT IN THE AXIS . THERE HAS BEEN NO OTHER SIGNIFICANT SERIAL CHANGE IN THE AXIS. ABNORMAL ECG INTERPRETATION BASED ON A DEFAULT AGE OF 41 YEARS PREVIOUS TRACING : 01/02/2017 23.39 DOCTOR: Rosa Riddle Interpretating Date/Time 06/24/2018 17:07:18
--- NOTE | 2018-06-24 17:12 | ECG ---
Date Performed: 06/24/2018 Time Performed: 01:38:44 PTAGE: 77 years EKG: Sinus rhythm with PAC(s) Left axis deviation RBBB with left anterior fascicular block Since prior tracing sinus t achycardia is resolved, but there was no other significant serial change. Abnormal ECG PREVIOUS TRACING : 06/23/2018 19.04 DOCTOR: Rosa Riddle Interpretating Date/Time 06/24/2018 17:11:35
[2018-06-24] MEDS: Metoprolol Tartrate 25 MG Tablet PO SCH (21:12)
[2018-06-24] MEDS: Azithromycin Inj 500 MG in Sodium Chlor 0.9% Inj 250 ML IV.SIG SCH (21:15)
[2018-06-25] MEDS: Sod Chloride 0.9% Inj 1,000 ML IV.CONT SCH ×4 (00:58→20:21)
[2018-06-25] MEDS: Vancomycin Inj 1,000 MG in Sodium Chlor 0.9% Inj 250 ML IV.SIG SCH ×2 (03:03→14:04)
[2018-06-25 07:23] LABS: Hematocrit 29.5 % (39.0-51.0); Mean Corpuscular HGB Conc 34.1 % (32.0-36.0); Mean Corpuscular Hemoglobin 30.7 pg (27.0-34.0); Mean Corpuscular Volume 90.1 fL (80.0-100.0); Mean Platelet Volume 7.9 fL (7.0-11.0); Platelet Count 204 th/mm3 (150-450); Red Blood Count 3.27 mil/mm3 (4.50-5.90); Red Cell Distribution Width 14.5 % (11.6-17.2); White Blood Count 6.6 th/mm3 (4.0-11.0)
[2018-06-25 07:49] LABS: Glomerular Filtration Rate Greater Than 89 mL/min (>89)
[2018-06-25] MEDS: Metoprolol Tartrate 25 MG Tablet PO SCH ×2 (08:50→20:12)
[2018-06-25] MEDS: Sertraline 50 MG Tablet PO SCH (08:51)
[2018-06-25] MEDS: Docusate Sodium 100 MG Capsule PO SCH ×2 (08:51→20:12)
[2018-06-25] MEDS: Sodium Chloride 0.9% 2 ML Flush BID IV.FLUSH SCH ×2 (08:51→20:21)
[2018-06-25] MEDS: Lisinopril 5 MG Tablet PO SCH (08:51)
[2018-06-25] MEDS: Pantoprazole Sodium 20 MG DR Tablet PO SCH (08:51)
--- NOTE | 2018-06-25 09:00 | P.PNCA ---
Subjective Interval history: No chest pain. Medications and Allergies Active Medications: Active Medications Acetaminophen (Tylenol) 650 mg PO Q4H PRN PRN Reason: Temp > 100.4 Albuterol (Duoneb Neb (Prn)) 1 ampul NEB Q2HR NEB PRN PRN Reason: SHORTNESS OF BREATH/WHEEZING Aspirin (Ecotrin) 81 mg PO DAILY [facility] Last Admin: 06/25/18 08:51 Dose: 81 mg Bisacodyl (Dulcolax Supp) 10 mg RECTAL DAILY PRN PRN Reason: SEVERE CONSITIPATION Docusate Sodium (Colace) 100 mg PO BID [facility] Last Admin: 06/25/18 08:51 Dose: Not Given Sodium Chloride (Ns Inj) 1,000 mls @ 100 mls/hr IV.CONT .Q10H [facility] Last Admin: 06/25/18 08:52 Dose: 100 mls/hr Sodium Chloride (Ns Inj) 500 mls @ 0 mls/hr IV.SIG BOLUS [facility] Azithromycin 500 mg/ Sodium (Chloride) 250 mls @ 250 mls/hr IV.SIG Q24H [facility] Last Infusion: 06/24/18 22:15 Dose: Infused Sodium Chloride (Ns Inj) 1,000 mls @ 0 mls/hr IV.SIG BOLUS [facility] Cefepime HCl 2,000 mg/ Sodium (Chloride) 100 mls @ 200 mls/hr IV.SIG Q8H [facility] Last Infusion: 06/25/18 04:37 Dose: Infused Vancomycin HCl 1,000 mg/ (Sodium Chloride) 250 mls @ 250 mls/hr IV.SIG Q12H [facility] Last Infusion: 06/25/18 04:03 Dose: Infused Lisinopril (Prinivil) 5 mg PO DAILY [facility] Last Admin: 06/25/18 08:51 Dose: 5 mg Metoprolol Tartrate (Lopressor) 12.5 mg PO BID [facility] Last Admin: 06/25/18 08:50 Dose: 12.5 mg Miscellaneous (Pill Splitter) 1 each OTHER PRN PRN PRN Reason: SEE LABEL COMMENTS Miscellaneous Information ([facility] Ordered Lab Info) 0 each OTHER ONCE ONE Stop: 06/26/18 02:46 Ondansetron HCl (Zofran Inj) 4 mg IV.PUSH Q6H PRN PRN Reason: NAUSEA OR VOMITING Pantoprazole Sodium (Protonix) 20 mg PO DAILY [facility] Last Admin: 06/25/18 08:51 Dose: 20 mg Pharmacy Profile Note (Vancomycin Consult Pharmacy) 1 each OTHER UNSCH PRN PRN Reason: Pharmacy to dose Pravastatin Sodium (Pravachol) 20 mg PO DAILY [facility] Last Admin: 06/25/18 08:51 Dose: 20 mg Sennosides (Senokot) 17.2 mg PO Q12H PRN PRN Reason: Moderate Constipation Sertraline HCl (Zoloft) 25 mg PO DAILY [facility] Last Admin: 06/25/18 08:51 Dose: 25 mg Sodium Chloride (Ns Flush) 2 ml IV.FLUSH BID [facility] Last Admin: 06/25/18 08:51 Dose: Not Given Sodium Chloride (Ns Flush) 2 ml IV.FLUSH PRN PRN PRN Reason: FLUSH AFTER USING IV ACCESS Tamsulosin HCl (Flomax) 0.4 mg PO DAILY [facility] Last Admin: 06/25/18 08:51 Dose: 0.4 mg Allergies Allergy/AdvReac Type Severity Reaction Status Date / Time No Known Allergies Allergy Verified 06/23/18 19:07 Home Medications Medication Instructions Recorded Confirmed Type docusate sodium [Colace] 100 mg PO BID 06/15/18 06/23/18 History enoxaparin [Lovenox] 30 mg SUBCUT Q12H 06/15/18 06/23/18 History lisinopril 5 mg PO DAILY 06/15/18 06/23/18 History miconazole nitrate [Akbar 1 applic TOPICAL TID 06/15/18 06/23/18 History Antifungal] omeprazole 20 mg PO DAILY 06/15/18 06/23/18 History phenazopyridine 200 mg PO TID 06/15/18 06/23/18 History pravastatin 20 mg PO DAILY 06/15/18 06/23/18 History sertraline [Zoloft] 25 mg PO DAILY 06/15/18 06/23/18 History tamsulosin [Flomax] 0.4 mg PO DAILY 06/15/18 06/23/18 History Physical Exam Vital signs: Vital Signs 06/24/18 09:00 06/24/18 10:00 06/24/18 11:00 Temperature Pulse Rate 61 58 L 62 Respiratory Rate Blood Pressure Pulse Oximetry 06/24/18 12:00 06/24/18 13:00 06/24/18 14:00 Temperature 97.6 F Pulse Rate 62 62 81 Respiratory Rate 18 Blood Pressure 143/81 H Pulse Oximetry 99 06/24/18 15:00 06/24/18 16:00 06/24/18 17:00 Temperature 97.6 F Pulse Rate 65 72 58 L Respiratory Rate 18 Blood Pressure 103/56 L Pulse Oximetry 97 06/24/18 18:00 06/24/18 19:00 06/24/18 20:00 Temperature 97.6 F Pulse Rate 83 64 66 Respiratory Rate 22 Blood Pressure 127/70 Pulse Oximetry 97 06/24/18 21:00 06/24/18 22:00 06/24/18 23:00 Temperature Pulse Rate 66 68 66 Respiratory Rate Blood Pressure Pulse Oximetry 06/25/18 00:00 06/25/18 01:00 06/25/18 02:00 Temperature 97.7 F Pulse Rate 57 L 65 67 Respiratory Rate 24 Blood Pressure 148/81 H Pulse Oximetry 97 06/25/18 03:00 06/25/18 04:00 06/25/18 05:00 Temperature 97.8 F Pulse Rate 67 66 58 L Respiratory Rate 22 Blood Pressure 148/74 H Pulse Oximetry 97 06/25/18 06:00 Temperature Pulse Rate 69 Respiratory Rate Blood Pressure Pulse Oximetry Intake & Output 06/24/18 06/25/18 06/25/18 18:59 06:59 18:59 Intake Total 2100 / 2100 2420 / 2420 1000 / 1000 Output Total 1600 / 1600 1000 / 1000 Balance 500 / 500 1420 / 1420 1000 / 1000 Weight 68.5 kg Intake: IV 1600 / 1600 1700 / 1700 1000 / 1000 Heparin/D5W 25,000 U/250 mL 25, 250 / 250 000 unit In 250 ml @ Per Protocol IV.CONT TITRATE PRN Rx #:[id number] NS Inj 1,000 ML @ 100 mls/hr IV 1000 / 1000 1000 / 1000 1000 / 1000 .CONT .Q10H [facility] Rx#:[id number] Azithromycin Inj 500 MG In NS 250 / 250 Inj 250 ML @ 250 mls/hr IV.SIG Q24H [facility] Rx#:[id number] Maxipime Inj 2,000 MG In NS Inj 100 / 100 200 / 200 100 ML @ 200 mls/hr IV.SIG Q8H [facility] Rx#:[id number] Vancomycin Inj 1,000 MG In NS 250 / 250 250 / 250 Inj 250 ML @ 250 mls/hr IV.SIG Q12H [facility] Rx#:[id number] Oral 500 / 500 720 / 720 Output: Urine Amount (Catheter) 1600 / 1600 1000 / 1000 Indwelling Urethral Catheter 1600 / 1600 1000 / 1000 Other: Date of Last Bowel Movement 06/24/18 Narrative: Alert Chest diminished CV S1S2 RRR Abd soft No edema - Urinary Catheter Management Indwelling Urethral Catheter Cath placed during this visit: yes Reason for continuing: Acute urinary retention Insertion date: 06/24/18 Insertion time: 19:40 Results 06/25/18 06:29 06/25/18 06:29 Cardiac Enzymes 06/23/18 06/24/18 06/24/18 Range/Units 19:30 01:36 09:21 AST 60 H (15-37) U/L Troponin I 0.44 H 0.34 H 0.20 H (0.02-0.05) ng/mL Coagulation 06/23/18 06/23/18 06/24/18 Range/Units 19:30 19:30 01:36 PT 11.3 (9.8-11.6) sec APTT 24.5 44.3 H D (24.3-30.1) sec 06/24/18 Range/Units 09:21 PT (9.8-11.6) sec APTT 30.5 H D (24.3-30.1) sec Lipids 06/24/18 Range/Units 01:36 Triglycerides 53 (42-150) mg/dL Cholesterol 122 (120-200) mg/dL HDL Cholesterol 41.2 (40.0-60.0) mg/dL Cholesterol/HDL Ratio 2.96 Ratio CBC 06/23/18 06/24/18 06/25/18 Range/Units 19:30 01:36 06:29 WBC 6.6 8.7 6.6 (4.0-11.0) th/mm3 RBC 3.72 L 3.54 L 3.27 L (4.50-5.90) mil/mm3 Hgb 11.2 L 10.9 L 10.0 L (13.0-17.0) gm/dL Hct 32.9 L 32.0 L 29.5 L (39.0-51.0) % Plt Count 260 220 204 (150-450) th/mm3 Neut # (Auto) 5.8 6.8 (1.8-7.7) th/mm3 Lymph # (Auto) 0.4 L 0.9 L (1.0-4.8) th/mm3 [place] # (Auto) 0.4 0.9 (0.0-0.9) th/mm3 Eos # (Auto) 0.0 0.0 (0.0-0.4) th/mm3 Baso # (Auto) 0.0 0.0 (0.0-0.2) th/mm3 Comprehensive Metabolic Panel 06/23/18 06/24/18 06/25/18 Range/Units 19:30 01:36 06:29 Sodium 131 L 136 (136-145) meq/L Potassium 3.9 3.6 (3.5-5.1) meq/L Chloride 95 L 99 (98-107) meq/L Carbon Dioxide 25.5 28.7 (21.0-32.0) meq/L BUN 18 16 (7-18) mg/dL Creatinine 0.79 0.72 0.53 L (0.60-1.30) mg/dL Calcium 7.6 L 7.0 L* (8.5-10.1) mg/dL AST 60 H (15-37) U/L ALT 36 (12-78) U/L Alkaline Phosphatase 156 H (45-117) U/L Total Protein 6.3 L 5.5 L D (6.4-8.2) g/dL Albumin 2.5 L (3.4-5.0) g/dL Intake and Output 06/24/18 06/25/18 06/25/18 22:59 06:59 14:59 Intake Total 2200 / 2200 1070 / 1070 1000 / 1000 Output Total 1600 / 1600 1000 / 1000 Balance 600 / 600 70 / 70 1000 / 1000 Intake: IV 1700 / 1700 350 / 350 1000 / 1000 NS Inj 1,000 ML @ 100 mls/hr IV 1000 / 1000 1000 / 1000 .CONT .Q10H [facility] Rx#:[id number] Azithromycin Inj 500 MG In NS 250 / 250 Inj 250 ML @ 250 mls/hr IV.SIG Q24H [facility] Rx#:[id number] Maxipime Inj 2,000 MG In NS Inj 200 / 200 100 / 100 100 ML @ 200 mls/hr IV.SIG Q8H [facility] Rx#:[id number] Vancomycin Inj 1,000 MG In NS 250 / 250 250 / 250 Inj 250 ML @ 250 mls/hr IV.SIG Q12H [facility] Rx#:[id number] Oral 500 / 500 720 / 720 Output: Urine Amount (Catheter) 1600 / 1600 1000 / 1000 Indwelling Urethral Catheter 1600 / 1600 1000 / 1000 Other: Date of Last Bowel Movement 06/24/18 Weight 68.5 kg - Imaging and Cardiology Imaging: Impressions Chest X-Ray 06/23/18 19:13 CONCLUSION: Right mid lung parenchymal consolidation, presumably pneumonia. Chest x-ray follow-up to resolution recommended. Assessment and Plan - Assessment (1) Pneumonia Code(s): J18.9 - Pneumonia, unspecified organism Status: Acute (2) COPD (chronic obstructive pulmonary disease) Code(s): J44.9 - Chronic obstructive pulmonary disease, unspecified Status: Acute (3) Elevated troponin Code(s): R74.8 - Abnormal levels of other serum enzymes Status: Acute Plan: LV function is nl. Suspect small Type 2 NSTEMI. Cont med therapy. I will see prn (1) Pneumonia Qualifiers: Pneumonia type: due to unspecified organism Laterality: right Lung location : middle lobe of lung Qualified Code(s): J18.1 - Lobar pneumonia, unspecified organism (2) COPD (chronic obstructive pulmonary disease) Qualifiers: COPD type: unspecified COPD Qualified Code(s): J44.9 - Chronic obstructive pulmonary disease, unspecified
--- NOTE | 2018-06-25 16:56 | P.PNIM ---
Subjective Interval history: The patient was resting in bed. He had no acute complaints. His family was at the bedside. The patient was considering going to an SNF. He was discussing with hospice at the bedside. Discussed with nursing. Physical Exam Vital signs: Vital Signs 06/24/18 17:00 06/24/18 18:00 06/24/18 19:00 Temperature Pulse Rate 58 L 83 64 Respiratory Rate Blood Pressure Pulse Oximetry 06/24/18 20:00 06/24/18 21:00 06/24/18 22:00 Temperature 97.6 F Pulse Rate 66 66 68 Respiratory Rate 22 Blood Pressure 127/70 Pulse Oximetry 97 06/24/18 23:00 06/25/18 00:00 06/25/18 01:00 Temperature 97.7 F Pulse Rate 66 57 L 65 Respiratory Rate 24 Blood Pressure 148/81 H Pulse Oximetry 97 06/25/18 02:00 06/25/18 03:00 06/25/18 04:00 Temperature 97.8 F Pulse Rate 67 67 66 Respiratory Rate 22 Blood Pressure 148/74 H Pulse Oximetry 97 06/25/18 05:00 06/25/18 06:00 06/25/18 07:00 Temperature Pulse Rate 58 L 69 69 Respiratory Rate Blood Pressure Pulse Oximetry 06/25/18 08:00 06/25/18 09:00 06/25/18 10:00 Temperature 98.0 F Pulse Rate 69 60 56 L Respiratory Rate 20 Blood Pressure 162/89 H Pulse Oximetry 98 06/25/18 11:00 06/25/18 12:00 06/25/18 13:00 Temperature 98.0 F Pulse Rate 64 66 59 L Respiratory Rate 20 Blood Pressure 157/82 H Pulse Oximetry 98 06/25/18 14:00 06/25/18 15:00 06/25/18 16:00 Temperature 98.1 F Pulse Rate 69 62 63 Respiratory Rate 20 Blood Pressure 129/71 Pulse Oximetry 98 Intake & Output 06/24/18 06/25/18 06/25/18 18:59 06:59 18:59 Intake Total 2100 / 2100 2420 / 2420 1350 / 1350 Output Total 1600 / 1600 1000 / 1000 Balance 500 / 500 1420 / 1420 1350 / 1350 Weight 68.5 kg Intake: IV 1600 / 1600 1700 / 1700 1350 / 1350 Heparin/D5W 25,000 U/250 mL 25, 250 / 250 000 unit In 250 ml @ Per Protocol IV.CONT TITRATE PRN Rx #:[id number] NS Inj 1,000 ML @ 100 mls/hr IV 1000 / 1000 1000 / 1000 1000 / 1000 .CONT .Q10H [facility] Rx#:[id number] Azithromycin Inj 500 MG In NS 250 / 250 Inj 250 ML @ 250 mls/hr IV.SIG Q24H [facility] Rx#:[id number] Maxipime Inj 2,000 MG In NS Inj 100 / 100 200 / 200 100 / 100 100 ML @ 200 mls/hr IV.SIG Q8H [facility] Rx#:[id number] Vancomycin Inj 1,000 MG In NS 250 / 250 250 / 250 250 / 250 Inj 250 ML @ 250 mls/hr IV.SIG Q12H [facility] Rx#:[id number] Oral 500 / 500 720 / 720 Output: Urine Amount (Catheter) 1600 / 1600 1000 / 1000 Indwelling Urethral Catheter 1600 / 1600 1000 / 1000 Other: Date of Last Bowel Movement 06/24/18 06/24/18 Narrative: Gen.: No acute distress Head: Normocephalic. Atraumatic. EENT: Pupils equal round and reactive to light. Nose without drainage. Airway intact. Throat without injection. Cardiovascular: Regular rate and rhythm. No murmurs, rubs or gallops. Respiratory: Lungs clear to auscultation bilaterally. No wheezes or rhonchi. Abdomen: Soft, nontender, nondistended. No peritoneal signs. Musculoskeletal: No gross deformities. No edema. Skin: No obvious rashes or erythema. Neuro: Sensory and motor grossly intact. Cranial nerves II through XII grossly intact. - Urinary Catheter Management Indwelling Urethral Catheter Cath placed during this visit: yes Reason for continuing: Acute urinary retention Insertion date: 06/24/18 Insertion time: 19:40 Results - Labs CBC & Chem 7: 06/25/18 06:29 06/25/18 06:29 Laboratory Results - last 24 hr 06/25/18 06/25/18 06:29 06:29 WBC 6.6 RBC 3.27 L Hgb 10.0 L Hct 29.5 L MCV 90.1 MCH 30.7 MCHC 34.1 RDW 14.5 Plt Count 204 MPV 7.9 Creatinine 0.53 L Estimated GFR Greater than 89 Microbiology 06/23/18 19:20 Blood - Peripheral Aerobic Blood Culture - Preliminary No growth in 2 days 06/23/18 19:20 Blood - Peripheral Anaerobic Blood Culture - Preliminary No growth in 2 days 06/23/18 19:30 Blood - Peripheral Aerobic Blood Culture - Preliminary No growth in 2 days 06/23/18 19:30 Blood - Peripheral Anaerobic Blood Culture - Preliminary No growth in 2 days 06/23/18 19:43 Catheterized Urine Urine Culture - Final No growth in 48 hours Assessment and Plan - Plan Hyperthermia/AMS -Resolved with evaporative cooling -on hospice, [facility] is following. Healthcare associated pneumonia Chest x-ray significant for right mid lung consolidation.Patient discharged from rehab 2-3 days ago -Vancomycin and cefepime -Blood cultures pending. NGTD. NSTEMI Troponin 0.44, no history of previously elevated troponin.EKG significant for sinus tachycardia with right bundle branch block, no signs of ischemia, personally reviewed. Cardiology consulted, appreciate recommendations. Echo with normal EF. -cardiac regimen per cardiology. History of recent hip surgery -PT consulted. Consider SNF. Case management assistance appreciated. COPD -Continue home oxygen supplementation -Duo nebs PPx: SCDs Discharge Planning: Likely d/c to SNF in 1-2 days
[2018-06-25] MEDS: Azithromycin Inj 500 MG in Sodium Chlor 0.9% Inj 250 ML IV.SIG SCH (20:19)
[2018-06-26] MEDS ORDERED: Pharmacy Ordered Lab Info OTHER ONE ×2 (02:45→14:45)
[2018-06-26] MEDS: Vancomycin Inj 1,000 MG in Sodium Chlor 0.9% Inj 250 ML IV.SIG SCH ×2 (03:42→15:44)
[2018-06-26 06:55] LABS: Baso % (Auto) 0.3 % (0.0-2.0); Eos # (Auto) 0.1 th/mm3 (0.0-0.4); Eos % (Auto) 1.4 % (0.0-4.0); Hematocrit 31.7 % (39.0-51.0); Hemoglobin 10.8 gm/dL (13.0-17.0); Lymph # (Auto) 0.7 th/mm3 (1.0-4.8); Lymph % (Auto) 11.2 % (9.0-44.0); Mean Corpuscular HGB Conc 34.1 % (32.0-36.0); Mean Corpuscular Hemoglobin 30.3 pg (27.0-34.0); Mean Corpuscular Volume 88.7 fL (80.0-100.0); Mean Platelet Volume 7.7 fL (7.0-11.0); Mono # (Auto) 0.5 th/mm3 (0.0-0.9); Mono % (Auto) 8.6 % (0.0-8.0); Neut # (Auto) 4.7 th/mm3 (1.8-7.7); Neut % (Auto) 78.5 % (16.0-70.0); Platelet Count 229 th/mm3 (150-450); Red Blood Count 3.58 mil/mm3 (4.50-5.90); Red Cell Distribution Width 14.2 % (11.6-17.2); White Blood Count 5.9 th/mm3 (4.0-11.0)
[2018-06-26] MEDS: Sod Chloride 0.9% Inj 1,000 ML IV.CONT SCH (07:17)
[2018-06-26 07:36] LABS: Anion Gap 7 meq/L (5-15); Blood Urea Nitrogen 7 mg/dL (7-18); Calcium 7.6 mg/dL (8.5-10.1); Carbon Dioxide 31.5 meq/L (21.0-32.0); Chloride 97 meq/L (98-107); Glomerular Filtration Rate Greater Than 89 mL/min (>89); Glucose,Random 93 mg/dL (74-106); Sodium 135 meq/L (136-145); Vancomycin,Trough 20.3 mcg/mL (5.0-10.0)
[2018-06-26 07:40] LABS: Potassium 2.7 meq/L (3.5-5.1)
[2018-06-26] MEDS ORDERED: Potassium Chlor 20 mEq Premix 20 MEQ/100 ML PIGGYBACK IV.SIG ONE (08:30)
[2018-06-26] MEDS: Metoprolol Tartrate 25 MG Tablet PO SCH ×2 (08:53→20:06)
[2018-06-26] MEDS: Pantoprazole Sodium 20 MG DR Tablet PO SCH (08:54)
[2018-06-26] MEDS: Lisinopril 5 MG Tablet PO SCH (08:55)
[2018-06-26] MEDS: Sodium Chloride 0.9% 2 ML Flush BID IV.FLUSH SCH ×2 (08:56→20:14)
[2018-06-26] MEDS: Docusate Sodium 100 MG Capsule PO SCH ×2 (12:40→20:06)
[2018-06-26] MEDS ORDERED: Potassium Chloride 25 MEQ Effervescent Tablet PO ONE (13:00)
--- NOTE | 2018-06-26 13:08 | P.PNIM ---
Subjective Interval history: The patient said that he thinks going to rehab would be better than going to home at this time. He has no acute complaints. Discussed with nursing. Physical Exam Vital signs: Vital Signs 06/25/18 14:00 06/25/18 15:00 06/25/18 16:00 Temperature 98.1 F Pulse Rate 69 62 63 Respiratory Rate 20 Blood Pressure 129/71 Pulse Oximetry 98 06/25/18 17:00 06/25/18 18:00 06/25/18 19:00 Temperature Pulse Rate 66 69 64 Respiratory Rate Blood Pressure Pulse Oximetry 06/25/18 20:00 06/25/18 21:00 06/25/18 22:00 Temperature 98.3 F Pulse Rate 63 60 61 Respiratory Rate 20 Blood Pressure 147/87 H Pulse Oximetry 97 06/25/18 23:00 06/26/18 00:00 06/26/18 01:00 Temperature 98.1 F Pulse Rate 62 65 64 Respiratory Rate 18 Blood Pressure 166/87 H Pulse Oximetry 97 06/26/18 02:00 06/26/18 03:00 06/26/18 03:59 Temperature Pulse Rate 64 64 65 Respiratory Rate Blood Pressure Pulse Oximetry 06/26/18 04:00 06/26/18 05:00 06/26/18 06:00 Temperature 98.1 F Pulse Rate 60 62 63 Respiratory Rate 18 Blood Pressure 163/82 H Pulse Oximetry 98 06/26/18 08:50 06/26/18 12:55 Temperature 98.1 F 98 F Pulse Rate 76 98 H Respiratory Rate 18 18 Blood Pressure 155/88 H 178/98 H Pulse Oximetry 99 100 Intake & Output 06/25/18 06/26/18 06/26/18 18:59 06:59 18:59 Intake Total 2850 / 2850 2200 / 2200 Output Total 1800 / 1800 1100 / 1100 Balance 1050 / 1050 1100 / 1100 Weight 69 kg Intake: IV 1350 / 1350 1700 / 1700 NS Inj 1,000 ML @ 100 mls/hr IV 1000 / 1000 1000 / 1000 .CONT .Q10H [facility] Rx#:[id number] Azithromycin Inj 500 MG In NS 250 / 250 Inj 250 ML @ 250 mls/hr IV.SIG Q24H [facility] Rx#:[id number] Maxipime Inj 2,000 MG In NS Inj 100 / 100 200 / 200 100 ML @ 200 mls/hr IV.SIG Q8H [facility] Rx#:[id number] Vancomycin Inj 1,000 MG In NS 250 / 250 250 / 250 Inj 250 ML @ 250 mls/hr IV.SIG Q12H [facility] Rx#:[id number] Oral 500 / 500 500 / 500 Other 1000 / 1000 Output: Urine 1100 / 1100 Urine/Stool Mix 0 / 0 Urine Amount (Catheter) 1800 / 1800 Indwelling Urethral Catheter 1800 / 1800 Other: Other Intake Source Saline Solution Date of Last Bowel Movement 06/24/18 06/25/18 Narrative: Gen.: No acute distress, weak. Head: Normocephalic. Atraumatic. EENT: Pupils equal round and reactive to light. Nose without drainage. Airway intact. Throat without injection. Cardiovascular: Regular rate and rhythm. No murmurs, rubs or gallops. Respiratory: Lungs clear to auscultation bilaterally. No wheezes or rhonchi. Abdomen: Soft, nontender, nondistended. No peritoneal signs. Musculoskeletal: No gross deformities. No edema. Skin: No obvious rashes or erythema. Neuro: Sensory and motor grossly intact. Cranial nerves II through XII grossly intact. - Urinary Catheter Management Indwelling Urethral Catheter Cath placed during this visit: yes Reason for continuing: Acute urinary retention Insertion date: 06/24/18 Insertion time: 19:40 Results - Labs CBC & Chem 7: 06/26/18 06:40 06/26/18 06:40 Laboratory Results - last 24 hr 06/26/18 06/26/18 06:40 06:40 WBC 5.9 RBC 3.58 L Hgb 10.8 L Hct 31.7 L MCV 88.7 MCH 30.3 MCHC 34.1 RDW 14.2 Plt Count 229 MPV 7.7 Neut % (Auto) 78.5 H Lymph % (Auto) 11.2 Crowley % (Auto) 8.6 H Eos % (Auto) 1.4 Baso % (Auto) 0.3 Neut # (Auto) 4.7 Lymph # (Auto) 0.7 L Crowley # (Auto) 0.5 Eos # (Auto) 0.1 Baso # (Auto) 0.0 WBC Differential . Differential Comment Auto diff final Sodium 135 L Potassium 2.7 L* Chloride 97 L Carbon Dioxide 31.5 Anion Gap 7 BUN 7 Creatinine 0.46 L Estimated GFR Greater than 89 Random Glucose 93 Calcium 7.6 L Vancomycin Trough 20.3 H Microbiology 06/23/18 19:20 Blood - Peripheral Aerobic Blood Culture - Preliminary No growth in 3 days 06/23/18 19:20 Blood - Peripheral Anaerobic Blood Culture - Preliminary No growth in 3 days 06/23/18 19:30 Blood - Peripheral Aerobic Blood Culture - Preliminary No growth in 3 days 06/23/18 19:30 Blood - Peripheral Anaerobic Blood Culture - Preliminary No growth in 3 days Assessment and Plan - Plan Hyperthermia/AMS Resolved. -on hospice, [facility] is following. Pt considering d/c to SNF, in which case hospice services will be held. community marketing manager assistance appreciated. Healthcare associated pneumonia Chest x-ray significant for right mid lung consolidation. Patient recently discharged from rehab. -continue vancomycin and cefepime -Blood cultures pending. NGTD. -d/c IVFs. NSTEMI Troponin 0.44, no history of previously elevated troponin.EKG significant for sinus tachycardia with right bundle branch block, no signs of ischemia, personally reviewed. Cardiology consulted, appreciate recommendations. Echo with normal EF. -cardiac regimen per cardiology. History of recent hip surgery Stable. -PT consulted. SNF placement. COPD Stable. -Continue home oxygen supplementation. -Duonebs. -antibiotics. Hypokalemia Severe. -replete IV and PO and monitor. Urinary retention A Pineda was placed in the ED. -continue Pineda for now. PPx: SCDs Discharge Planning: Likely d/c to SNF on Thursday
[2018-06-26] MEDS: Sertraline 50 MG Tablet PO SCH (15:45)
[2018-06-26] MEDS: Azithromycin Inj 500 MG in Sodium Chlor 0.9% Inj 250 ML IV.SIG SCH (20:13)
[2018-06-27] MEDS: Vancomycin Inj 1,000 MG in Sodium Chlor 0.9% Inj 250 ML IV.SIG SCH (03:25)
[2018-06-27 07:39] LABS: Anion Gap 9 meq/L (5-15); Blood Urea Nitrogen 5 mg/dL (7-18); Chloride 93 meq/L (98-107); Glomerular Filtration Rate Greater Than 89 mL/min (>89); Glucose,Random 87 mg/dL (74-106); Magnesium 1.5 mg/dL (1.5-2.5); Phosphorus 2.3 mg/dL (2.5-4.9); Sodium 133 meq/L (136-145)
[2018-06-27 08:44] LABS: Potassium 2.7 meq/L (3.5-5.1)
[2018-06-27] MEDS ORDERED: Potassium Chloride 25 MEQ Effervescent Tablet PO ONE (09:00)
--- NOTE | 2018-06-27 09:31 | P.PNIM ---
Subjective Interval history: The patient was resting in bed comfortably. He had no acute complaints. He denies shortness of breath. He denied any pain. Discussed with nursing. Physical Exam Vital signs: Vital Signs 06/26/18 10:00 06/26/18 11:00 06/26/18 12:00 Temperature Pulse Rate 58 L 67 58 L Respiratory Rate Blood Pressure Pulse Oximetry 06/26/18 12:55 06/26/18 13:00 06/26/18 14:00 Temperature 98 F Pulse Rate 98 H 68 66 Respiratory Rate 18 Blood Pressure 178/98 H Pulse Oximetry 100 06/26/18 15:00 06/26/18 16:00 06/26/18 17:00 Temperature 98.1 F Pulse Rate 56 L 60 62 Respiratory Rate 18 Blood Pressure 140/83 Pulse Oximetry 100 06/26/18 18:00 06/26/18 19:00 06/26/18 20:00 Temperature 97.9 F Pulse Rate 63 66 63 Respiratory Rate 18 Blood Pressure 153/80 H Pulse Oximetry 98 06/26/18 21:00 06/26/18 22:00 06/26/18 23:00 Temperature Pulse Rate 64 64 65 Respiratory Rate Blood Pressure Pulse Oximetry 06/27/18 00:00 06/27/18 01:00 06/27/18 02:00 Temperature 98.2 F Pulse Rate 53 L 62 63 Respiratory Rate 18 Blood Pressure 132/75 Pulse Oximetry 98 06/27/18 03:00 06/27/18 03:56 06/27/18 04:00 Temperature 98.3 F Pulse Rate 61 51 L 60 Respiratory Rate 18 Blood Pressure 152/91 H Pulse Oximetry 97 06/27/18 05:00 06/27/18 06:00 06/27/18 07:00 Temperature Pulse Rate 61 62 68 Respiratory Rate Blood Pressure Pulse Oximetry Intake & Output 06/26/18 06/27/18 06/27/18 18:59 06:59 18:59 Intake Total 2640 / 2640 1450 / 1450 Output Total 3250 / 3250 1600 / 1600 Balance -610 / -610 -150 / -150 Weight 68.5 kg Intake: IV 1200 / 1200 950 / 950 NS Inj 1,000 ML @ 100 mls/hr IV 1000 / 1000 .CONT .Q10H [facility] Rx#:[id number] Azithromycin Inj 500 MG In NS 250 / 250 Inj 250 ML @ 250 mls/hr IV.SIG Q24H [facility] Rx#:[id number] Maxipime Inj 2,000 MG In NS Inj 100 / 100 200 / 200 100 ML @ 200 mls/hr IV.SIG Q8H [facility] Rx#:[id number] KCl 20 mEq Premix Inj 20 meq In 100 / 100 100 ml @ 50 mls/hr IV.SIG ONCE ONE Rx#:[id number] Vancomycin Inj 1,000 MG In NS 500 / 500 Inj 250 ML @ 250 mls/hr IV.SIG Q12H [facility] Rx#:[id number] Oral 1440 / 1440 500 / 500 Output: Urine 3250 / 3250 1600 / 1600 Urine/Stool Mix 0 / 0 Other: Date of Last Bowel Movement 06/25/18 Narrative: Gen.: No acute distress. Head: Normocephalic. Atraumatic. EENT: Pupils equal round and reactive to light. Nose without drainage. Airway intact. Throat without injection. Cardiovascular: Regular rate and rhythm. No murmurs, rubs or gallops. Respiratory: Lungs clear to auscultation bilaterally. No wheezes or rhonchi. Abdomen: Soft, nontender, nondistended. No peritoneal signs. : Pineda in place. Musculoskeletal: No gross deformities. No edema. Skin: No obvious rashes or erythema. Neuro: Sensory and motor grossly intact. Cranial nerves II through XII grossly intact. - Urinary Catheter Management Indwelling Urethral Catheter Cath placed during this visit: yes Reason for continuing: Acute urinary retention Insertion date: 06/24/18 Insertion time: 19:40 Results - Labs CBC & Chem 7: 06/26/18 06:40 06/27/18 05:32 Laboratory Results - last 24 hr 06/26/18 06/27/18 16:00 05:32 Sodium 133 L Potassium 2.7 L* Chloride 93 L Carbon Dioxide 31.0 Anion Gap 9 BUN 5 L Creatinine 0.45 L Estimated GFR Greater than 89 Random Glucose 87 Calcium 8.0 L Phosphorus 2.3 L Magnesium 1.5 Vancomycin Trough 9.3 Microbiology 06/23/18 19:20 Blood - Peripheral Aerobic Blood Culture - Preliminary No growth in 3 days 06/23/18 19:20 Blood - Peripheral Anaerobic Blood Culture - Preliminary No growth in 3 days 06/23/18 19:30 Blood - Peripheral Aerobic Blood Culture - Preliminary No growth in 3 days 06/23/18 19:30 Blood - Peripheral Anaerobic Blood Culture - Preliminary No growth in 3 days Assessment and Plan - Plan Hyperthermia/AMS Resolved. -on hospice, [facility] is following. Pt considering d/c to SNF, in which case hospice services will be held. park recreation manager assistance appreciated. Healthcare associated pneumonia Chest x-ray significant for right mid lung consolidation. Patient recently discharged from rehab. -continue vancomycin and cefepime. -Blood cultures pending. NGTD. -d/c IVFs. -oxygen and nebs as needed. NSTEMI Troponin 0.44, no history of previously elevated troponin.EKG significant for sinus tachycardia with right bundle branch block, no signs of ischemia, personally reviewed. Cardiology consulted, appreciate recommendations. Echo with normal EF. -cardiac regimen per cardiology. -telemetry. History of recent hip surgery Stable. -PT consulted. SNF placement per case management. COPD Stable. -Continue home oxygen supplementation. -Duonebs. -antibiotics as above. Hypokalemia Severe. -replete IV and PO and monitor. -ADAT. Urinary retention A Pineda was placed in the ED. -continue Pineda for now. PPx: Lovenox Discharge Planning: Likely d/c to SNF on Thursday
[2018-06-27] MEDS: Mag Sulf 1 gm/100 ml Premix 100 ML IV.SIG SCH ×2 (09:39→10:42)
[2018-06-27] MEDS: Sodium Chloride 0.9% 2 ML Flush BID IV.FLUSH SCH ×2 (09:40→21:07)
[2018-06-27] MEDS: Lisinopril 5 MG Tablet PO SCH (09:40)
[2018-06-27] MEDS: Docusate Sodium 100 MG Capsule PO SCH ×2 (09:40→21:05)
[2018-06-27] MEDS: Sertraline 50 MG Tablet PO SCH (09:40)
[2018-06-27] MEDS: Pantoprazole Sodium 20 MG DR Tablet PO SCH (09:40)
[2018-06-27] MEDS: Metoprolol Tartrate 25 MG Tablet PO SCH ×2 (09:40→21:05)
[2018-06-27] MEDS: Enoxaparin Inj 40 MG/0.4 ML Syringe SQ SCH (10:00)
[2018-06-27] MEDS: Potassium Chloride Inj 30 MEQ in Dextrose 5%/NaCl 0.9% Inj 1,000 ML IV.CONT SCH ×2 (10:30→23:15)
[2018-06-27] MEDS: Vancomycin Inj 1,250 MG in Sodium Chlor 0.9% Inj 250 ML IV.SIG SCH (16:03)
[2018-06-27 17:03] LABS: Anion Gap 8 meq/L (5-15); Blood Urea Nitrogen 7 mg/dL (7-18); Calcium 7.7 mg/dL (8.5-10.1); Carbon Dioxide 29.2 meq/L (21.0-32.0); Chloride 95 meq/L (98-107); Glomerular Filtration Rate Greater Than 89 mL/min (>89); Glucose,Random 108 mg/dL (74-106); Sodium 132 meq/L (136-145)
[2018-06-27] MEDS: Azithromycin Inj 500 MG in Sodium Chlor 0.9% Inj 250 ML IV.SIG SCH (21:06)
[2018-06-28] MEDS: Vancomycin Inj 1,250 MG in Sodium Chlor 0.9% Inj 250 ML IV.SIG SCH ×2 (03:29→15:35)
[2018-06-28] MEDS: Potassium Chloride Inj 30 MEQ in Dextrose 5%/NaCl 0.9% Inj 1,000 ML IV.CONT SCH ×2 (05:36→15:40)
[2018-06-28 06:52] LABS: Anion Gap 7 meq/L (5-15); Blood Urea Nitrogen 5 mg/dL (7-18); Calcium 7.8 mg/dL (8.5-10.1); Carbon Dioxide 30.7 meq/L (21.0-32.0); Chloride 95 meq/L (98-107); Glomerular Filtration Rate Greater Than 89 mL/min (>89); Glucose,Random 105 mg/dL (74-106); Sodium 133 meq/L (136-145)
[2018-06-28] MEDS ORDERED: Potassium Chloride 25 MEQ Effervescent Tablet PO ONE (08:27)
[2018-06-28] MEDS: Pantoprazole Sodium 20 MG DR Tablet PO SCH (09:00)
[2018-06-28] MEDS: Lisinopril 5 MG Tablet PO SCH (09:01)
[2018-06-28] MEDS: Sertraline 50 MG Tablet PO SCH (09:01)
[2018-06-28] MEDS: Docusate Sodium 100 MG Capsule PO SCH ×2 (09:01→20:57)
[2018-06-28] MEDS: Metoprolol Tartrate 25 MG Tablet PO SCH ×2 (09:01→20:56)
[2018-06-28] MEDS: Sodium Chloride 0.9% 2 ML Flush BID IV.FLUSH SCH ×2 (09:01→20:57)
[2018-06-28] MEDS: Enoxaparin Inj 40 MG/0.4 ML Syringe SQ SCH (09:01)
--- NOTE | 2018-06-28 09:46 | P.DS ---
Date of admission: 06/23/18 21:08 Primary care physician: UNKNOWN Anticipated date of discharge: 06/29/18 Brief History from admission: 77-year-old male with a past medical history significant for hypertension, chronic hyponatremia, COPD on hospice, hyperlipidemia, GERD and recent hip fracture discharged from rehab 2 days ago presents to the emergency department for evaluation of fever. The patient is on hospice for end-stage COPD. His nurse was checking on him and found his house to have a temperature of 92 F and the patient's temperature was 107 at home. Patient was reportedly confused upon arrival to the emergency department. At this time he is answering questions appropriately. His temperature has normalized. He denies any pain. No chest pain or shortness of breath. Troponin is elevated to 0.44. Previous troponin in 2017 was within normal limits. He denies any abdominal pain. No nausea/vomiting/diarrhea. No lateralizing signs/symptoms. Patient update on day of discharge: The patient was resting comfortably in bed. He had no acute complaints. Discussed with nursing. DS: Diagnosis - Discharge Diagnosis (1) Pneumonia Status: Acute (2) Hyperthermia Status: Acute (3) COPD (chronic obstructive pulmonary disease) Status: Acute DS: Medications - Discharge Medications Prescriptions: amoxicillin-pot clavulanate [Augmentin] 1 tab PO Q12H #4 tab potassium chloride 20 meq PO BID 7 Days #28 tab Saccharomyces boulardii [Florastor] 250 mg PO BID 7 Days #14 cap DS: Summary Hospital Course: Hyperthermia/AMS Improved with treatment including IVFs and antibiotics. [facility] followed the patient while he was in the hospital. Healthcare associated pneumonia Chest x-ray significant for right mid lung consolidation. Patient recently discharged from rehab. He was continued on IV vancomycin and cefepime. Blood cultures were negative. He received oxygen and nebs as needed. He will complete a course of Augmentin upon discharge. NSTEMI Troponin 0.44, no history of previously elevated troponin. EKG significant for sinus tachycardia with right bundle branch block, no acute signs of ischemia. Cardiology was consulted and recommended medical management. Echo with normal EF. He was monitored on telemetry. He will follow up with cardiology as an outpt. History of recent hip surgery PT was consulted. SNF placement was arranged by case management. Hypokalemia The patient received IV and PO repletion. He was monitored on telemetry. He will be discharged on KCl supplementation. He will have a repeat BMP in 3 days. Urinary retention A Pineda was placed in the ED. We will continue the Pineda for now and the patient should have a voiding trial at the SNF in a few days. - Time Spent with Patient Total time spent providing and/or coordinating discharge services: Greater than 30 minutes Exam Vital signs: Vital Signs 06/27/18 10:00 06/27/18 11:00 06/27/18 12:00 Temperature 98.1 F Pulse Rate 71 71 71 Respiratory Rate 18 Blood Pressure 120/70 Pulse Oximetry 100 06/27/18 13:00 06/27/18 14:00 06/27/18 15:00 Temperature Pulse Rate 60 60 62 Respiratory Rate Blood Pressure Pulse Oximetry 06/27/18 16:00 06/27/18 17:00 06/27/18 18:00 Temperature 98.3 F Pulse Rate 58 L 64 62 Respiratory Rate 16 Blood Pressure 105/68 Pulse Oximetry 98 06/27/18 19:00 06/27/18 20:00 06/27/18 21:00 Temperature 98.2 F Pulse Rate 62 63 60 Respiratory Rate 18 Blood Pressure 138/76 Pulse Oximetry 97 06/27/18 22:00 06/27/18 23:00 06/27/18 23:36 Temperature 98.1 F Pulse Rate 61 60 60 Respiratory Rate 18 Blood Pressure 137/79 Pulse Oximetry 97 06/28/18 00:00 06/28/18 01:00 06/28/18 02:00 Temperature Pulse Rate 60 62 62 Respiratory Rate Blood Pressure Pulse Oximetry 06/28/18 03:00 06/28/18 04:00 06/28/18 05:00 Temperature 98.2 F Pulse Rate 61 64 61 Respiratory Rate 18 Blood Pressure 151/91 H Pulse Oximetry 96 06/28/18 05:41 Temperature Pulse Rate 63 Respiratory Rate Blood Pressure Pulse Oximetry Intake & Output 06/27/18 06/28/18 06/28/18 18:59 06:59 18:59 Intake Total 1295 / 1295 3255 / 3255 Output Total 1750 / 1750 1500 / 1500 Balance -455 / -455 1755 / 1755 Weight 65.6 kg Intake: IV 575 / 575 2755 / 2755 KCl Inj 30 MEQ In D5W/Normal 2029 / 2029 Saline Inj 1,000 ML @ 100 mls/ hr IV.CONT .Q10H9M [facility] Rx#: [id number] Azithromycin Inj 500 MG In NS 250 / 250 Inj 250 ML @ 250 mls/hr IV.SIG Q24H [facility] Rx#:[id number] Maxipime Inj 2,000 MG In NS Inj 100 / 100 200 / 200 100 ML @ 200 mls/hr IV.SIG Q8H [facility] Rx#:[id number] Magnesium Sulfate 1 gm/D5W 100 200 / 200 ml Premix 100 ML @ 100 mls/hr IV.SIG Q1H [facility] Rx#:[id number] Vancomycin Inj 1,250 MG In NS 275 / 275 275 / 275 Inj 250 ML @ 250 mls/hr IV.SIG Q12H [facility] Rx#:[id number] Oral 720 / 720 500 / 500 Output: Urine 1750 / 1750 1500 / 1500 Other: # Bowel Movements 1 Narrative: Gen.: No acute distress. Head: Normocephalic. Atraumatic. EENT: Pupils equal round and reactive to light. Nose without drainage. Airway intact. Throat without injection. Cardiovascular: Regular rate and rhythm. No murmurs, rubs or gallops. Respiratory: Lungs clear to auscultation bilaterally. No wheezes or rhonchi. Abdomen: Soft, nontender, nondistended. No peritoneal signs. : Pineda in place. Musculoskeletal: No gross deformities. No edema. Skin: No obvious rashes or erythema. Neuro: Sensory and motor grossly intact. Cranial nerves II through XII grossly intact. Results Procedures completed during hospitalization: None Labs on day of discharge: Labs from last 24 hours 06/28/18 06/27/18 05:09 16:17 Sodium 133 L 132 L Potassium 3.0 L 3.0 L Chloride 95 L 95 L Carbon Dioxide 30.7 29.2 Anion Gap 7 8 BUN 5 L 7 Creatinine 0.59 L 0.50 L Estimated GFR Greater than 89 Greater than 89 Random Glucose 105 108 H Calcium 7.8 L 7.7 L Preliminary micro results at discharge 06/23/18 19:20 Aerobic Blood Culture - Preliminary Blood - Peripheral No growth in 4 days Anaerobic Blood Culture - Preliminary No growth in 4 days 06/23/18 19:30 Aerobic Blood Culture - Preliminary Blood - Peripheral No growth in 4 days Anaerobic Blood Culture - Preliminary No growth in 4 days - Impressions ITS Impressions Chest X-Ray 06/23/18 19:13 CONCLUSION: Right mid lung parenchymal consolidation, presumably pneumonia. Chest x-ray follow-up to resolution recommended. Discharge Plan - Discharge Disposition Patient Disposition: Discharge to SNF - Discharge Condition Condition: Stable - Discharge Order Discharge Orders: Discharge Order (Routine); Ordered 06/28/18 Ordered By: Truong Gallego - Discharge Details Anticipated Discharge Date: 06/29/18 - Physicians Team Primary Care Provider: UNKNOWN, Attending Provider: Truong Gallego Other Providers: [employer] ; Charlie Busch MD ; [facility] ; [facility]
--- NOTE | 2018-06-28 16:40 | P.PNIM ---
Subjective Interval history: No concerns. Resting in bed. Looking forward to going to rehab. Discussed with nursing. Physical Exam Vital signs: Vital Signs 06/27/18 17:00 06/27/18 18:00 06/27/18 19:00 Temperature Pulse Rate 64 62 62 Respiratory Rate Blood Pressure Pulse Oximetry 06/27/18 20:00 06/27/18 21:00 06/27/18 22:00 Temperature 98.2 F Pulse Rate 63 60 61 Respiratory Rate 18 Blood Pressure 138/76 Pulse Oximetry 97 06/27/18 23:00 06/27/18 23:36 06/28/18 00:00 Temperature 98.1 F Pulse Rate 60 60 60 Respiratory Rate 18 Blood Pressure 137/79 Pulse Oximetry 97 06/28/18 01:00 06/28/18 02:00 06/28/18 03:00 Temperature Pulse Rate 62 62 61 Respiratory Rate Blood Pressure Pulse Oximetry 06/28/18 04:00 06/28/18 05:00 06/28/18 05:41 Temperature 98.2 F Pulse Rate 64 61 63 Respiratory Rate 18 Blood Pressure 151/91 H Pulse Oximetry 96 06/28/18 07:00 06/28/18 08:00 06/28/18 09:00 Temperature 97.8 F Pulse Rate 66 66 100 H Respiratory Rate 18 Blood Pressure 160/92 H Pulse Oximetry 97 06/28/18 10:00 06/28/18 11:00 06/28/18 11:37 Temperature 97.8 F Pulse Rate 71 62 59 L Respiratory Rate 18 Blood Pressure 114/74 Pulse Oximetry 98 06/28/18 12:00 06/28/18 13:00 06/28/18 14:00 Temperature Pulse Rate 62 74 69 Respiratory Rate Blood Pressure Pulse Oximetry 06/28/18 15:00 06/28/18 15:33 Temperature 98.0 F Pulse Rate 71 73 Respiratory Rate 18 Blood Pressure 151/84 H Pulse Oximetry 96 Intake & Output 06/27/18 06/28/18 06/28/18 18:59 06:59 18:59 Intake Total 1295 / 1295 3255 / 3255 1015 / 1015 Output Total 1750 / 1750 1500 / 1500 Balance -455 / -455 1755 / 1755 1015 / 1015 Weight 65.6 kg Intake: IV 575 / 575 2755 / 2755 1015 / 1015 KCl Inj 30 MEQ In D5W/Normal 2029 / 2029 1015 / 1015 Saline Inj 1,000 ML @ 100 mls/ hr IV.CONT .Q10H9M [facility] Rx#: [id number] Azithromycin Inj 500 MG In NS 250 / 250 Inj 250 ML @ 250 mls/hr IV.SIG Q24H [facility] Rx#:[id number] Maxipime Inj 2,000 MG In NS Inj 100 / 100 200 / 200 100 ML @ 200 mls/hr IV.SIG Q8H [facility] Rx#:[id number] Magnesium Sulfate 1 gm/D5W 100 200 / 200 ml Premix 100 ML @ 100 mls/hr IV.SIG Q1H [facility] Rx#:[id number] Vancomycin Inj 1,250 MG In NS 275 / 275 275 / 275 Inj 250 ML @ 250 mls/hr IV.SIG Q12H [facility] Rx#:[id number] Oral 720 / 720 500 / 500 Output: Urine 1750 / 1750 1500 / 1500 Other: # Bowel Movements 1 Narrative: Gen.: No acute distress. Head: Normocephalic. Atraumatic. EENT: Pupils equal round and reactive to light. Nose without drainage. Airway intact. Throat without injection. Cardiovascular: Regular rate and rhythm. No murmurs, rubs or gallops. Respiratory: Lungs clear to auscultation bilaterally. No wheezes or rhonchi. Abdomen: Soft, nontender, nondistended. No peritoneal signs. : Pineda in place. Musculoskeletal: No gross deformities. No edema. Skin: No obvious rashes or erythema. Neuro: Sensory and motor grossly intact. Cranial nerves II through XII grossly intact. - Urinary Catheter Management Indwelling Urethral Catheter Cath placed during this visit: yes Reason for continuing: Acute urinary retention Insertion date: 06/24/18 Insertion time: 19:40 Results - Labs CBC & Chem 7: 06/26/18 06:40 06/28/18 05:09 Laboratory Results - last 24 hr 06/27/18 06/28/18 16:17 05:09 Sodium 132 L 133 L Potassium 3.0 L 3.0 L Chloride 95 L 95 L Carbon Dioxide 29.2 30.7 Anion Gap 8 7 BUN 7 5 L Creatinine 0.50 L 0.59 L Estimated GFR Greater than 89 Greater than 89 Random Glucose 108 H 105 Calcium 7.7 L 7.8 L Microbiology 06/23/18 19:20 Blood - Peripheral Aerobic Blood Culture - Final No growth in 5 days 06/23/18 19:20 Blood - Peripheral Anaerobic Blood Culture - Final No growth in 5 days 06/23/18 19:30 Blood - Peripheral Aerobic Blood Culture - Final No growth in 5 days 06/23/18 19:30 Blood - Peripheral Anaerobic Blood Culture - Final No growth in 5 days Assessment and Plan - Assessment (1) Pneumonia Code(s): J18.9 - Pneumonia, unspecified organism Status: Acute (2) Hyperthermia Code(s): R50.9 - Fever, unspecified Status: Acute (3) COPD (chronic obstructive pulmonary disease) Code(s): J44.9 - Chronic obstructive pulmonary disease, unspecified Status: Acute - Plan Hyperthermia/AMS Resolved. -on hospice, [facility] is following. Pt considering d/c to SNF, in which case hospice services will be held. manager of financial planning assistance appreciated. Healthcare associated pneumonia Chest x-ray significant for right mid lung consolidation. Patient recently discharged from rehab. -continue vancomycin and cefepime. D/c on Augmentin. -Blood cultures pending. NGTD. -d/c IVFs. -oxygen and nebs as needed. NSTEMI Troponin 0.44, no history of previously elevated troponin.EKG significant for sinus tachycardia with right bundle branch block, no signs of ischemia, personally reviewed. Cardiology consulted, appreciate recommendations. Echo with normal EF. -cardiac regimen per cardiology. Follow up with cardiology as an outpt. -telemetry. History of recent hip surgery Stable. -PT consulted. SNF placement per case management. COPD Stable. -Continue home oxygen supplementation. -Duonebs. -antibiotics as above. Hypokalemia Severe. -replete IV and PO and monitor. -ADAT. Urinary retention A Pineda was placed in the ED. -continue Pineda for now. Voiding trial at SNF. PPx: Lovenox Discharge Planning: Likely d/c to SNF on Thursday (1) Pneumonia Qualifiers: Pneumonia type: due to unspecified organism Laterality: right Lung location : middle lobe of lung Qualified Code(s): J18.1 - Lobar pneumonia, unspecified organism (3) COPD (chronic obstructive pulmonary disease) Qualifiers: COPD type: unspecified COPD Qualified Code(s): J44.9 - Chronic obstructive pulmonary disease, unspecified
[2018-06-28] MEDS: Azithromycin Inj 500 MG in Sodium Chlor 0.9% Inj 250 ML IV.SIG SCH (20:57)
[2018-06-29] MEDS: Vancomycin Inj 1,250 MG in Sodium Chlor 0.9% Inj 250 ML IV.SIG SCH (02:39)
[2018-06-29] MEDS: Potassium Chloride Inj 30 MEQ in Dextrose 5%/NaCl 0.9% Inj 1,000 ML IV.CONT SCH ×2 (02:39→12:11)
[2018-06-29] MEDS ORDERED: Pharmacy Ordered Lab Info OTHER ONE (02:45)
[2018-06-29 07:13] LABS: Glomerular Filtration Rate Greater Than 89 mL/min (>89)
[2018-06-29] MEDS: Sodium Chloride 0.9% 2 ML Flush BID IV.FLUSH SCH (08:44)
[2018-06-29] MEDS: Sertraline 50 MG Tablet PO SCH (08:45)
[2018-06-29] MEDS: Enoxaparin Inj 40 MG/0.4 ML Syringe SQ SCH (08:45)
[2018-06-29] MEDS: Pantoprazole Sodium 20 MG DR Tablet PO SCH (08:45)
[2018-06-29] MEDS: Docusate Sodium 100 MG Capsule PO SCH (08:47)
[2018-06-29] MEDS: Metoprolol Tartrate 25 MG Tablet PO SCH (08:47)
[2018-06-29] MEDS: Lisinopril 5 MG Tablet PO SCH (08:54)
[2018-06-29] MEDS ORDERED: Potassium Chloride 25 MEQ Effervescent Tablet PO ONE (10:37)
[2018-06-29 12:35] VITALS: BP 124/73; RESP 18; TEMP 97.4; O2SAT 97
[2018-06-29 13:37] VITALS: PULSE 63
[2018-06-30] MEDS ORDERED: Pharmacy Ordered Lab Info OTHER ONE (14:45)
== END 2018-06-29 15:00 ==
LOC: NEPC 18:59 → NEDA 21:08 → HCIS 06-24 00:07
PROVIDERS: ADMIT Hospitalist; ATTEND Hospitalist